=== PATIENT | female | born 1930 | race Caucasian/White ===

== ENCOUNTER 2018-02-16 14:53 | Inpatient (IN) | payer MEDICARE, OTHER ==
--- NOTE | 2018-02-16 15:12 | ERNOTE ---
Lower Extremity HPI - Narrative Date of Service: 02/16/18 - General Lower Extremities Pain: leg: left Time Seen by Provider: 02/16/18 15:11 Source: patient Exam Limitations: no limitations - Immun/Allergies/Home Medications Immunizations: IMMUNIZATION HX Immunizations Up to Date No History of Influenza Vaccine More Information Required Hx Pneumococcal Vaccination More Information Required Allergies/Adverse Reactions: Allergies Allergy/AdvReac Type Severity Reaction Status Date / Time iodine Allergy Intermediate Blisters Verified 02/16/18 17:29 ibuprofen AdvReac Intermediate Swelling Verified 02/16/18 17:29 (Other) bupropion HCl AdvReac Mild Other Verified 02/16/18 17:29 [From Wellbutrin] Home Medications: HOME MEDICATIONS Acetaminophen [Tylenol] 500 mg PO Q6H PRN #0 tab 12/17/13 [Last Taken Unknown] Metoprolol Tartrate [Lopressor] 75 mg PO BID #0 tab 12/17/13 [Last Taken 05/31/14 08:00] simvastatin 20 mg tablet 20 mg PO HS #30 tab 12/03/17 [Last Taken Unknown] citalopram 20 mg tablet 20 mg PO DAILY #90 tab 12/05/17 [Last Taken Unknown] cane See Dose Instructions .ROUTE .MEDSUPPLY #1 ea 12/15/17 [Last Taken Unknown] levothyroxine 100 mcg tablet 100 mcg PO DAILY #90 tab 01/08/18 [Last Taken Unknown] torsemide 20 mg tablet 20 mg PO DAILY #90 tab 01/08/18 [Last Taken Unknown] Cephalexin [Keflex] 500 mg PO QID #40 capsule 02/11/18 [Last Taken 02/16/18 13:00] Cholecalciferol (Vitamin D3) [Vitamin D3] 1,000 unit PO DAILY 02/16/18 [Last Taken Unknown] Warfarin Sodium [Coumadin] 1.5 mg PO TUSA 02/16/18 [Last Taken Unknown] Warfarin Sodium [Coumadin] 3 mg PO SUMOWETHFR 02/16/18 [Last Taken Unknown] - Pain Score Pain Score #1 Pain Score: 7 - History of Present Illness Narrative: The patient is a 87 year old female who presents for left leg edema and discoloration which has been present for 1 week with worsening symptoms. There are associated symptoms of difficulty with ambulation. The patient reports pain to left medial calf, 10/28. There are alleviating factors of non weight bearing and rest. There are aggravating factors of palpation and ambulation. Previous treatments have included: Rocephin and Keflex without improvement. The past medical history includes: Afib, DVT, anemia, anxiety, osteoarthritis, depression, DM, HLD, HTN and hypothyroid. The social history is negative. The patient has had no ill contacts. Patient was seen on 02/11/18 with US and lab testing conclusive of hematoma vs abscess, bakers cyst and negative for DVT. Patient is currently on Coumadin with most recent INR 3.28. Review of Systems - Review of Systems Constitutional: Present: fatigue. Absent: recent illness, fever EYE: Present: no symptoms reported ENT: Present: no symptoms reported. Absent: ear pain, nasal drainage, sore throat Respiratory: Present: no symptoms reported. Absent: shortness of breath, cough Cardiology: Present: no symptoms reported. Absent: chest pain Gastrointestinal/Abdominal: Present: nausea. Absent: vomiting, diarrhea, abdominal pain Genitourinary: Absent: dysuria, hematuria Musculoskeletal: Present: joint pain, joint swelling Skin: Present: lesions Neurological: Present: no symptoms reported Endocrine: Present: no symptoms reported Hematologic/Lymphatic: Present: no symptoms reported Psych: Present: no symptoms reported All Other Systems: All systems neg except as marked Medical History (Last Reviewed 02/16/18 @ 15:26 by HARMONY Bond) H/O mammogram (Chronic) Onset Date: ~02/04/08 Yearly Screening Sciatica (Chronic) Onset Date: ~2004 Left sided Osteoarthritis (Chronic) Onset Date: Unknown Obesity (Chronic) Onset Date: Unknown Myalgia (Chronic) Onset Date: Unknown Knee pain (Chronic) Onset Date: Unknown 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) Onset Date: ~2013 right knee Hypothyroidism (Chronic) Onset Date: ~07/2008 Hypertension (Chronic) Onset Date: ~1969 Hyperlipidemia (Chronic) Onset Date: ~09/2006 Encounter for Hemoccult screening (Chronic) Onset Date: ~09/07/07 Negative X 3 Diabetes 1.5, managed as type 2 (Chronic) Onset Date: ~01/2008 Depression (Chronic) Onset Date: Unknown H/O bone density study (Chronic) Onset Date: ~11/22/04 Atrial fibrillation (Chronic) Onset Date: ~09/20/13 Osteoarthritis (Chronic) Onset Date: ~03/10/13 Bilateral knees Arthralgia (Chronic) Onset Date: Unknown Anxiety (Chronic) Onset Date: Unknown Anemia (Chronic) Onset Date: ~01/2008 Surgical History: Surgical History (Last Reviewed 02/16/18 @ 15:26 by HARMONY Bond) History of total knee arthroplasty (Resolved) Onset Date: ~12/07/13 2014 - Dr. Mckeon - Right 2015 - Dr. De Jesus [facility] right revision after infection. H/O bilateral oophorectomy (Resolved) Onset Date: ~1955 History of cholecystectomy (Resolved) Onset Date: ~1986 Cataract (Resolved) Onset Date: Unknown Right 11/2001 and Left 02/2007 History of bladder surgery (Resolved) Onset Date: Unknown ? adhesions and bladder dropped Hx of hysterectomy Family History: Family History (Last Reviewed 02/16/18 @ 15:26 by HARMONY Bond) Father , age 70 Myocardial infarction Hypertension Mother , age 97 Broken hip CHF (congestive heart failure) Heart disease Social History: Preferred Language Greenlandic Do you have any yazdanism or No cultural preference? Smoking Status Never smoker Have you smoked in the past 12 No months Do you dip or chew tobacco No Alcohol Use sober (Last Updated 01/16/18 @ 06:51 by Vladimir Oliveira MD) No Social History Section defined Physical Exam - Physical Exam General Appearance: Present: wd/wn, alert, mild distress, obese Head Exam: Present: normal inspection Respiratory: Present: no respiratory distress, normal breath sounds, chest nontender, lungs clear Cardiovascular/Chest: Present: no murmur, irregularly irregular Peripheral Pulses: N=norm/S=strong/W=weak/B=bound/A=absent: Dorsalis-pedis (L): Normal Extremity Exam: Present: extremity edema - diffuse with increase to calf, other - notable hematoma with black discoloration to medial calf with diffuse erythema to lower extremity, no posterior knee tenderness or fullness Neurological Exam: Present: alert, oriented, normal mood/affect Skin Exam: Present: normal color, warm/dry ED Progress - Date and Time Seen: Date and Time: 02/16/18 16:40 Discussed care with Cuong KAPLAN, drain area with 20g needle and attempt to decompress for pain control as well as get culture. 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 Discussed with case folder Minoo, approved to observation admit. Notified Cuong KAPLAN of admission plan, will see patient tomorrow for aspiration, will with hold antibiotics until evaluation tomorrow. - Results and Orders Patient's Lab Results:: I have reviewed the patient's lab results. - Vital Signs Patient's Vital Signs:: I have reviewed the patient's vital signs. Vital Signs: Vital Signs 02/16/18 14:57 Temperature 37.1 C Pulse Rate 75 Respiratory Rate 13 Blood Pressure 156/78 H O2 Sat by Pulse Oximetry 96 - CT/Ultrasound CT/Ultrasound Narrative: X-RAY REPORT ~[id number] ULT/US Venous Ext Limit LT~ Exam Date: 02/16/2018 15:18 Ordering Physician: Rama Estevez Indication: Left lower extremity edema with hematoma. Technique: Real-time compression grayscale sonography, Doppler and duplex techniques were used to evaluate the left lower extremity deep venous system from the common femoral through popliteal trifurcation. Compared to prior examination dated February 11, 2018. Findings: There is normal compressibility, augmentation of flow and respiratory variation in the left lower extremity deep venous system. No intraluminal filling defects to suggest deep venous thrombosis. Within the left calf, subcutaneous tissues is a heterogeneous fluid collection measuring 9.3 x 6.6 x 6.2 cm. This has increased in size from the prior examination and could represent enlarging hematoma however, exclude infection/abscess formation. Correlate clinically. IMPRESSION: 1. NO EVIDENCE FOR DVT IN THE LEFT LOWER EXTREMITY. 2. PERSISTENT ENLARGING HETEROGENEOUS FLUID COLLECTION IN THE LEFT CALF IN THE SUBCUTANEOUS TISSUES MEASURING 9.3 X 6.6 X 6.2 CM. FINDINGS COULD REPRESENT HEMATOMA HOWEVER CANNOT EXCLUDE INFECTION. CORRELATE CLINICALLY FOR FEVER AND ELEVATED WHITE COUNT. Electronically signed by Franklyn Mendoza D.O.. - Progress/Reassessment Chief Complaint: Lower Extremity Pain/ Injury Departure Clinical Impression: skilled nursing (current) use of anticoagulants, Hematoma, Leg pain, left, Hypokalemia - Departure Disposition: Still a patient Condition: Fair
[2018-02-16] MEDS ORDERED: ONDANSETRON HCL/PF 2 MG/ML VIAL IV ONE (15:42)
[2018-02-16] MEDS ORDERED: MORPHINE SULFATE 2 MG/ML DISP.SYRIN IV ONE (15:42)
[2018-02-16] MEDS ORDERED: ONDANSETRON HCL/PF 2 MG/ML VIAL ONE (15:53)
[2018-02-16] MEDS ORDERED: MORPHINE SULFATE 2 MG/ML DISP.SYRIN ONE (15:53)
[2018-02-16 15:56] LABS: Hematocrit 34.6 % (37.0-47.0); Hemoglobin 11.5 gm/dL (12.5-16.0); Mean Cell Volume 90.1 fl (78-100); Mean Corpuscular Hemoglobin 29.9 pg (27-31); Mean Corpuscular Hgb Conc 33.2 g/dl (32-36); Mean Platelet Volume 9.3 fl (8-12.5); Neutrophil # 9.5 K/mm3 (1.3-6.0); Neutrophil % 79.1 % (42-75.0); Platelet Count 213 K/mm3 (150-450); Red Blood Count 3.84 M/mm3 (4.2-5.4); Red Cell Distribution Width 13.1 % (11.5-14.0)
[2018-02-16 16:08] LABS: Albumin * 3.5 gm/dl (3.4-5.0); Anion Gap 11.1 mmol/L (6.8-13.8); Bilirubin, Total 1.3 mg/dL (0.0-1.1); CRP 7.3 mg/dL (0.0-0.9); Ca. Corrected For Albumin 8.4 mg/dL (8.4-10.2); Calcium * 8.3 mg/dL (7.9-10.9); Carbon Dioxide 32.3 mmol/L (24-32.6); Total Protein 7.1 gm/dL (6.2-8.2)
[2018-02-16 16:12] LABS: Prothrombin Time (Patient) 32.3 Seconds (9.0-11.0)
[2018-02-16 16:15] LABS: INR 3.19 INR (0.90-1.10); Partial Thrombolplastin Time 46.7 Seconds (24-32)
[2018-02-16 16:27] LABS: Potassium 2.4 mmol/L (3.4-4.6)
[2018-02-16] MEDS ORDERED: POTASSIUM CHLORIDE 20 MEQ TABLET.SA PO ONE (16:29)
[2018-02-16] MEDS ORDERED: POTASSIUM CHLORIDE 20 MEQ TABLET.SA ONE (17:06)
--- NOTE | 2018-02-16 18:14 | HP ---
Chief Complaint - Chief Complaint Date of Service: 02/16/18 Time of Service: 18:07 Chief Complaint: Leg swelling and pain, left History of Present Illness: Maggie Patel, is an 87-year-old white female, with past medical history of chronic atrial fibrillation, diabetes mellitus type 2, hypertension, obesity, who was admitted on 02/16/2018 because of swelling over left leg associated with pain. 2 weeks prior to admission she started having some left leg pain. She did not recall any history of trauma. 5 days prior to admission she knocked his swelling and redness as well as darkening over skin of her left lower extremity. She went to our emergency room where an ultrasound done did not show any deep vein thromboses but did show fluid accumulation on on her left leg consider hematoma versus abscess. She also had a Knapp's cyst. She was started on cephalexin for cellulitis. Her's swelling, redness and blackening over her skin did not get better and got worse, so she went back to our emergency room. Her repeat ultrasound of the leg showed an enlarging fluid accumulation consider hematoma versus infection. She had moderate Knapp's cyst. Her INR was 3.01 down from 3.215 days ago. She was then admitted for observation on and for orthopedic consultation. She denied any fever or chills, chest pain or shortness of breath. 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) Onset Date: ~2013 right knee Hypothyroidism (Chronic) Onset Date: ~07/2008 Hypertension (Chronic) Onset Date: ~1969 Hyperlipidemia (Chronic) Onset Date: ~09/2006 Encounter for Hemoccult screening (Chronic) Onset Date: ~09/07/07 Negative X 3 Diabetes 1.5, managed as type 2 (Chronic) Onset Date: ~01/2008 Depression (Chronic) Onset Date: Unknown H/O bone density study (Chronic) Onset Date: ~11/22/04 Atrial fibrillation (Chronic) Onset Date: ~09/20/13 Osteoarthritis (Chronic) Onset Date: ~03/10/13 Bilateral knees Arthralgia (Chronic) Onset Date: Unknown Anxiety (Chronic) Onset Date: Unknown Anemia (Chronic) Onset Date: ~01/2008 Surgical History: Surgical History (Last Reviewed 02/16/18 @ 17:28 by Nathalie Washington RN) History of total knee arthroplasty (Resolved) Onset Date: ~12/07/13 2014 - Dr. Mckeon - Right 2015 - Dr. De Jesus [facility] right revision after infection. H/O bilateral oophorectomy (Resolved) Onset Date: ~1955 History of cholecystectomy (Resolved) Onset Date: ~1986 Cataract (Resolved) Onset Date: Unknown Right 11/2001 and Left 02/2007 History of bladder surgery (Resolved) Onset Date: Unknown ? 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 Smoking Status Former smoker Have you smoked in the past 12 No months Do you dip or chew tobacco No Alcohol Use sober (Last Updated 01/16/18 @ 06:51 by Vladimir Oliveira MD) No Social History Section defined Review Of Systems (GEN) - Review of Systems Generalized/Overall Review: Absent: Weakness, Chills, Fever EENTM: Absent: Blurred Vision Respiratory: Absent: Cough, Shortness of Breath, Orthopnea Cardiac: Present: Edema. Absent: Chest Pain, Palpitations Abdominal: Absent: Nausea, Vomiting Genitourinary: Absent: Urgency, Frequency Musculoskeletal: Present: Joint Pain Skin: Present: Change in Color, Bruising Immunizations: IMMUNIZATION HX Immunizations Up to Date No History of Influenza Vaccine More Information Required Hx Pneumococcal Vaccination More Information Required Allergies/Adverse Reactions: Allergies Allergy/AdvReac Type Severity Reaction Status Date / Time iodine Allergy Intermediate Blisters Verified 02/16/18 17:29 ibuprofen AdvReac Intermediate Swelling Verified 02/16/18 17:29 (Other) bupropion HCl AdvReac Mild Other Verified 02/16/18 17:29 [From Wellbutrin] Home Medications: HOME MEDICATIONS Acetaminophen [Tylenol] 500 mg PO Q6H PRN #0 tab 12/17/13 [Last Taken Unknown] Metoprolol Tartrate [Lopressor] 75 mg PO BID #0 tab 12/17/13 [Last Taken 05/31/14 08:00] simvastatin 20 mg tablet 20 mg PO HS #30 tab 12/03/17 [Last Taken Unknown] citalopram 20 mg tablet 20 mg PO DAILY #90 tab 12/05/17 [Last Taken Unknown] cane See Dose Instructions .ROUTE .MEDSUPPLY #1 ea 12/15/17 [Last Taken Unknown] levothyroxine 100 mcg tablet 100 mcg PO DAILY #90 tab 01/08/18 [Last Taken Unknown] torsemide 20 mg tablet 20 mg PO DAILY #90 tab 01/08/18 [Last Taken Unknown] Cholecalciferol (Vitamin D3) [Vitamin D3] 1,000 unit PO DAILY 02/16/18 [Last Taken Unknown] Warfarin Sodium [Coumadin] 1.5 mg PO TUSA 02/16/18 [Last Taken Unknown] Warfarin Sodium [Coumadin] 3 mg PO SUMOWETHFR 02/16/18 [Last Taken Unknown] Exam - Exam Vital Signs: Vital Signs - Last Taken Temp 36.7 C 02/16/18 17:31 Pulse 75 02/16/18 17:31 Resp 16 02/16/18 17:31 BP 150/56 H 02/16/18 17:31 Pulse Ox 100 02/16/18 17:31 Constitutional: Present: Alert, Oriented x3, Cooperative, Elderly, Obese ENT Exam: Present: hearing grossly normal Eye Exam: bilateral eye: normal inspection, PERRL, EOMI Neck: Present: supple Respiratory: Present: decreased breath sounds, No rales, No wheezing Cardiovascular/Chest: Present: no JVD, no murmur, irregularly irregular Abdomen: Present: Normal bowel sounds, soft, nontender, nondistended, obese Extremity: Present: lower extremity edema, other - LLE- positive erythema, positive hematoma/ecchymoses, no pain on dorsiflexion of foot, faint but positive DPA/COMPENSATION AND BENEFITS ADVISOR pulses, positive popliteal cyst Diagnostic Studies: Abnormal Lab Results 02/16/18 02/16/18 02/16/18 Range/Units 15:43 15:43 15:43 WBC 12.0 H (4.0-10.5) K/mm3 RBC 3.84 L (4.2-5.4) M/mm3 Hgb 11.5 L (12.5-16.0) gm/dL Hct 34.6 L (37.0-47.0) % Immature Gran % (Auto) 0.70 H (0.001-0.429) % Immature Gran # (Auto) 0.08 H (0.000-0.0310) K/mm3 Neutrophils % 79.1 H (42-75.0) % Lymphocytes % 8.9 L (20-51) % Monocytes % 10.6 H (0.0-9) % Neutrophils # 9.5 H (1.3-6.0) K/mm3 Lymphocytes # 1.07 L (1.5-3.5) k/mm3 Monocytes # 1.3 H (0.0-1.0) k/mm3 ESR 58 H (0-15) mm/hr PT 32.3 H (9.0-11.0) Seconds INR (Anticoag Therapy) 3.19 H (0.90-1.10) INR PTT ([place]) 46.7 H (24-32) Seconds Potassium (3.4-4.6) mmol/L Chloride (97-106) mmol/L Est GFR (Non-Af Amer) (60-130) mL/min Random Glucose (70-110) mg/dL Total Bilirubin (0.0-1.1) mg/dL ALT (19-67) U/L C-Reactive Prot, Quant (0.0-0.9) mg/dL 02/16/18 Range/Units 15:43 WBC (4.0-10.5) K/mm3 RBC (4.2-5.4) M/mm3 Hgb (12.5-16.0) gm/dL Hct (37.0-47.0) % Immature Gran % (Auto) (0.001-0.429) % Immature Gran # (Auto) (0.000-0.0310) K/mm3 Neutrophils % (42-75.0) % Lymphocytes % (20-51) % Monocytes % (0.0-9) % Neutrophils # (1.3-6.0) K/mm3 Lymphocytes # (1.5-3.5) k/mm3 Monocytes # (0.0-1.0) k/mm3 ESR (0-15) mm/hr PT (9.0-11.0) Seconds INR (Anticoag Therapy) (0.90-1.10) INR PTT (Devin) (24-32) Seconds Potassium 2.4 L* (3.4-4.6) mmol/L Chloride 95 L (97-106) mmol/L Est GFR (Non-Af Amer) 56 L (60-130) mL/min Random Glucose 143 H (70-110) mg/dL Total Bilirubin 1.3 H (0.0-1.1) mg/dL ALT 16 L (19-67) U/L C-Reactive Prot, Quant 7.3 H (0.0-0.9) mg/dL Laboratory Results WBC 12.0 K/mm3 (4.0-10.5) H 02/16/18 15:43 RBC 3.84 M/mm3 (4.2-5.4) L 02/16/18 15:43 Hgb 11.5 gm/dL (12.5-16.0) L 02/16/18 15:43 Hct 34.6 % (37.0-47.0) L 02/16/18 15:43 MCV 90.1 fl (78-100) 02/16/18 15:43 MCH 29.9 pg (27-31) 02/16/18 15:43 MCHC 33.2 g/dl (32-36) 02/16/18 15:43 RDW 13.1 % (11.5-14.0) 02/16/18 15:43 Plt Count 213 K/mm3 (150-450) 02/16/18 15:43 MPV 9.3 fl (8-12.5) 02/16/18 15:43 Immature Gran % (Auto) 0.70 % (0.001-0.429) H 02/16/18 15:43 Immature Gran # (Auto) 0.08 K/mm3 (0.000-0.0310) H 02/16/18 15:43 Neutrophils % 79.1 % (42-75.0) H 02/16/18 15:43 Lymphocytes % 8.9 % (20-51) L 02/16/18 15:43 Monocytes % 10.6 % (0.0-9) H 02/16/18 15:43 Eosinophils % 0.4 % (0.0-3.0) 02/16/18 15:43 Basophils % 0.3 % (0.0-1.0) 02/16/18 15:43 Nucleated RBC % 0.0 k/mm3 (0-1) 02/16/18 15:43 Neutrophils # 9.5 K/mm3 (1.3-6.0) H 02/16/18 15:43 Lymphocytes # 1.07 k/mm3 (1.5-3.5) L 02/16/18 15:43 Monocytes # 1.3 k/mm3 (0.0-1.0) H 02/16/18 15:43 Eosinophils # 0.1 k/mm3 (0.0-0.7) 02/16/18 15:43 Absolute Basophils 0.0 k/mm3 (0.0-0.1) 02/16/18 15:43 ESR 58 mm/hr (0-15) H 02/16/18 15:43 PT 32.3 Seconds (9.0-11.0) H 02/16/18 15:43 INR (Anticoag Therapy) 3.19 INR (0.90-1.10) H 02/16/18 15:43 PTT (Devin) 46.7 Seconds (24-32) H 02/16/18 15:43 Sodium 136 mmol/L (132-142) 02/16/18 15:43 Plasma Sodium 137 mmol/L (130-142) 02/16/18 15:43 Potassium 2.4 mmol/L (3.4-4.6) L* 02/16/18 15:43 Chloride 95 mmol/L (97-106) L 02/16/18 15:43 Carbon Dioxide 32.3 mmol/L (24-32.6) 02/16/18 15:43 Anion Gap 11.1 mmol/L (6.8-13.8) 02/16/18 15:43 BUN 16 mg/dL (3-23) 02/16/18 15:43 Creatinine 1.00 mg/dL (0.4-1.4) 02/16/18 15:43 Est GFR (Non-Af Amer) 56 mL/min (60-130) L 02/16/18 15:43 BUN/Creatinine Ratio 16.0 (9.0-21.6) 02/16/18 15:43 Random Glucose 143 mg/dL (70-110) H 02/16/18 15:43 Calcium 8.3 mg/dL (7.9-10.9) 02/16/18 15:43 Calcium Adj for Albumin 8.4 mg/dL (8.4-10.2) 02/16/18 15:43 Total Bilirubin 1.3 mg/dL (0.0-1.1) H 02/16/18 15:43 AST 16 U/L (0-48) 02/16/18 15:43 ALT 16 U/L (19-67) L 02/16/18 15:43 Alkaline Phosphatase 70 U/L (50-170) 02/16/18 15:43 C-Reactive Prot, Quant 7.3 mg/dL (0.0-0.9) H 02/16/18 15:43 Total Protein 7.1 gm/dL (6.2-8.2) 02/16/18 15:43 Albumin 3.5 gm/dl (3.4-5.0) 02/16/18 15:43 Assessment/Plan - Assessment/Plan (1) Hematoma Assessment: vs abscess. For possible drainage tomorrow. because of the enlarging fluid accu mulation, will give Vit K. Problem: Acute (2) Leg pain, left Assessment: hematoma vs. abscess. possible aspiration and/or I & D in the morning. will give IV ancef and Vit K. unlikely Warfarin skin necrosis due to period of time on anticoagulation. able to dorsiflex foot against resistance-unlikely with compartment syndrome. Problem: Acute (3) Hypokalemia Assessment: will replenish Problem: Acute (4) Osteoarthritis Problem: Chronic (5) Obesity Problem: Chronic Qualifiers: Obesity type: unspecified obesity type Obesity classification: adult class 2 (BMI 35 - 39.9) Serious obesity comorbidity presence: without serious comorbidity Body mass index: BMI 39.0-39.9 Qualified Code(s): E66.9 - Obesity, unspecified; Z68.39 - Body mass index (BMI) 39.0-39.9, adult (6) Hypothyroidism Problem: Chronic Qualifiers: Hypothyroidism type: acquired Qualified Code(s): E03.9 - Hypothyroidism, unspecified (7) Hypertension Problem: Chronic Qualifiers: Hypertension type: essential hypertension Qualified Code(s): I10 - Es sential (primary) hypertension (8) Hyperlipidemia Problem: Chronic Qualifiers: Hyperlipidemia type: mixed hyperlipidemia Qualified Code(s): E78.2 - Mixed hyperlipidemia (9) Atrial fibrillation Assessment: coumadin on hold. Problem: Chronic Qualifiers: Atrial fibrillation type: chronic Qualified Code(s): I48.2 - Chronic atrial fibrillation
[2018-02-16] MEDS ORDERED: ACETAMINOPHEN 500 MG TABLET PO PRN (18:30)
[2018-02-16] MEDS ORDERED: ceFAZolin SODIUM 1 GM VIAL IV ONE (18:51)
[2018-02-16] MEDS ORDERED: POTASSIUM CHLORIDE IN WATER 100 ML IV SCH (19:00)
[2018-02-16] MEDS ORDERED: PHYTONADIONE (VIT K1) 5 MG TABLET PO ONE (19:15)
[2018-02-16] MEDS ORDERED: ceFAZolin SODIUM 1 GM in DEXTROSE 5 % IN WATER 100 ML IV SCH ×2 (19:15)
[2018-02-16] MEDS ORDERED: METOPROLOL TARTRATE 25 MG TABLET ONE (19:41)
[2018-02-16] MEDS: METOPROLOL TARTRATE 25 MG TABLET PO SCH (20:35)
[2018-02-16] MEDS: SIMVASTATIN 20 MG TABLET PO SCH (20:36)
[2018-02-17] MEDS: traMADol HCL 50 MG TABLET PO PRN ×3 (04:49→20:19)
[2018-02-17 05:33] LABS: Prothrombin Time (Patient) 25.6 Seconds (9.0-11.0)
[2018-02-17 05:34] LABS: Anion Gap 9.7 mmol/L (6.8-13.8); BUN/Creatinine Ratio 16.2 (9.0-21.6); Calcium * 8.5 mg/dL (7.9-10.9); Carbon Dioxide 32.9 mmol/L (24-32.6); Estimated Creat Clear 26.6; Hematocrit 32.4 % (37.0-47.0); Hemoglobin 10.7 gm/dL (12.5-16.0); INR 2.54 INR (0.90-1.10); Mean Corpuscular Hemoglobin 29.7 pg (27-31); Mean Platelet Volume 9.4 fl (8-12.5); Platelet Count 215 K/mm3 (150-450); Potassium 2.6 mmol/L (3.4-4.6)
[2018-02-17 05:38] LABS: Total Cells Counted 100
[2018-02-17 06:05] LABS: Atypical (Reactive) Lymph 1 % (0-2); Band 1 % (0-2.0); Eosinophil 2 % (0-3); Lymphocyte 7 % (20-51); Monocyte 9 % (0-9); Neutrophil 80 % (42-75); Neutrophil # 10.4 K/mm3 (1.3-6.0)
[2018-02-17] MEDS: LEVOTHYROXINE SODIUM 100 MCG TABLET PO SCH (06:32)
[2018-02-17] MEDS ORDERED: POTASSIUM CHLORIDE IN WATER 100 ML IV SCH (08:00)
--- NOTE | 2018-02-17 08:21 | HP ---
Chief Complaint - Chief Complaint Date of Service: 02/17/18 Time of Service: 08:18 Chief Complaint: WBC is up to 13. Hematoma more than abscess. Coumadin on hold. Vit K given yesterday ,. INR down to 2.5. Ancef given in case abscess. Aspiration. Hypokalemia - tosemid on hold. K supplementation . History of Present Illness: Maggie Patel, is an 87-year-old white female, with past medical history of chronic atrial fibrillation, diabetes mellitus type 2, hypertension, obesity, who was admitted on 02/16/2018 because of swelling over left leg associated with pain. 2 weeks prior to admission she started having some left leg pain. She did not recall any history of trauma. 5 days prior to admission she knocked his swelling and redness as well as darkening over skin of her left lower extremity. She went to our emergency room where an ultrasound done did not show any deep vein thromboses but did show fluid accumulation on on her left leg consider hematoma versus abscess. She also had a Knapp's cyst. She was started on cephalexin for cellulitis. Her's swelling, redness and blackening over her skin did not get better and got worse, so she went back to our emergency room. Her repeat ultrasound of the leg showed an enlarging fluid accumulation consider hematoma versus infection. She had moderate Knapp's cyst. Her INR was 3.01 down from 3.215 days ago. She was then admitted for observation on and for orthopedic consultation. She denied any fever or chills, chest pain or shortness of breath. 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) Onset Date: ~2013 right knee Hypothyroidism (Chronic) Onset Date: ~07/2008 Hypertension (Chronic) Onset Date: ~1969 Hyperlipidemia (Chronic) Onset Date: ~09/2006 Encounter for Hemoccult screening (Chronic) Onset Date: ~09/07/07 Negative X 3 Diabetes 1.5, managed as type 2 (Chronic) Onset Date: ~01/2008 Depression (Chronic) Onset Date: Unknown H/O bone density study (Chronic) Onset Date: ~11/22/04 Atrial fibrillation (Chronic) Onset Date: ~09/20/13 Osteoarthritis (Chronic) Onset Date: ~03/10/13 Bilateral knees Arthralgia (Chronic) Onset Date: Unknown Anxiety (Chronic) Onset Date: Unknown Anemia (Chronic) Onset Date: ~01/2008 Surgical History: Surgical History (Last Reviewed 02/16/18 @ 17:28 by Nathalie Washington RN) History of total knee arthroplasty (Resolved) Onset Date: ~12/07/132013 - Dr. Mckeon - Right 2015 - Dr. De Jesus [facility] right revision after infection. H/O bilateral oophorectomy (Resolved) Onset Date: ~1955 History of cholecystectomy (Resolved) Onset Date: ~1986 Cataract (Resolved) Onset Date: Unknown Right 11/2001 and Left 02/2007 History of bladder surgery (Resolved) Onset Date: Unknown ? 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 Smoking Status Former smoker Have you smoked in the past 12 No months Do you dip or chew tobacco No Alcohol Use sober (Last Updated 01/16/18 @ 06:51 by Vladimir Oliveira MD) No Social History Section defined Immunizations: IMMUNIZATION HX Immunizations Up to Date No History of Influenza Vaccine More Information Required Hx Pneumococcal Vaccination More Information Required Allergies/Adverse Reactions: Allergies Allergy/AdvReac Type Severity Reaction Status Date / Time iodine Allergy Intermediate Blisters Verified 02/16/18 17:29 ibuprofen AdvReac Intermediate Swelling Verified 02/16/18 17:29 (Other) bupropion HCl AdvReac Mild Other Verified 02/16/18 17:29 [From Wellbutrin] Home Medications: HOME MEDICATIONS Acetaminophen [Tylenol] 500 mg PO Q6H PRN #0 tab 12/17/13 [Last Taken Unknown] Metoprolol Tartrate [Lopressor] 75 mg PO BID #0 tab 12/17/13 [Last Taken 05/31/14 08:00] simvastatin 20 mg tablet 20 mg PO HS #30 tab 12/03/17 [Last Taken Unknown] citalopram 20 mg tablet 20 mg PO DAILY #90 tab 12/05/17 [Last Taken Unknown] cane See Dose Instructions .ROUTE .MEDSUPPLY #1 ea 12/15/17 [Last Taken Unknown] levothyroxine 100 mcg tablet 100 mcg PO DAILY #90 tab 01/08/18 [Last Taken Unknown] torsemide 20 mg tablet 20 mg PO DAILY #90 tab 01/08/18 [Last Taken Unknown] Cholecalciferol (Vitamin D3) [Vitamin D3] 1,000 unit PO DAILY 02/16/18 [Last Taken Unknown] Warfarin Sodium [Coumadin] 1.5 mg PO TUSA 02/16/18 [Last Taken Unknown] Warfarin Sodium [Coumadin] 3 mg PO SUMOWETHFR 02/16/18 [Last Taken Unknown] Exam - Exam Vital Signs: Vital Signs - Last Taken Temp 36.7 C 02/17/18 02:24 Pulse 76 02/17/18 02:24 Resp 16 02/17/18 02:24 BP 110/47 02/17/18 02:24 Pulse Ox 95 02/17/18 02:24 Diagnostic Studies: Abnormal Lab Results 02/16/18 02/16/18 02/16/18 Range/Units 15:43 15:43 15:43 WBC 12.0 H (4.0-10.5) K/mm3 RBC 3.84 L (4.2-5.4) M/mm3 Hgb 11.5 L (12.5-16.0) gm/dL Hct 34.6 L (37.0-47.0) % Immature Gran % (Auto) 0.70 H (0.001-0.429) % Immature Gran # (Auto) 0.08 H (0.000-0.0310) K/mm3 Neutrophils % 79.1 H (42-75.0) % Neutrophils % (Manual) (42-75) % Lymphocytes % 8.9 L (20-51) % Lymphocytes % (Manual) (20-51) % Monocytes % 10.6 H (0.0-9) % Neutrophils # 9.5 H (1.3-6.0) K/mm3 Neutrophils # (Manual) (1.3-6.0) K/mm3 Lymphocytes # 1.07 L (1.5-3.5) k/mm3 Lymphocytes # (Manual) (1.5-3.5) k/mm3 Monocytes # 1.3 H (0.0-1.0) k/mm3 Monocytes # (Manual) (0.0-1.0) k/mm3 ESR 58 H (0-15) mm/hr PT 32.3 H (9.0-11.0) Seconds INR (Anticoag Therapy) 3.19 H (0.90-1.10) INR PTT (Dvein) 46.7 H (24-32) Seconds Potassium (3.4-4.6) mmol/L Chloride (97-106) mmol/L Carbon Dioxide (24-32.6) mmol/L Est GFR (Non-Af Amer) (60-130) mL/min Random Glucose (70-110) mg/dL Total Bilirubin (0.0-1.1) mg/dL ALT (19-67) U/L C-Reactive Prot, Quant (0.0-0.9) mg/dL 02/16/18 02/17/18 02/17/18 Range/Units 15:43 05:24 05:24 WBC 13.0 H (4.0-10.5) K/mm3 RBC 3.60 L (4.2-5.4) M/mm3 Hgb 10.7 L (12.5-16.0) gm/dL Hct 32.4 L (37.0-47.0) % Immature Gran % (Auto) (0.001-0.429) % Immature Gran # (Auto) (0.000-0.0310) K/mm3 Neutrophils % (42-75.0) % Neutrophils % (Manual) 80 H (42-75) % Lymphocytes % (20-51) % Lymphocytes % (Manual) 7 L (20-51) % Monocytes % (0.0-9) % Neutrophils # (1.3-6.0) K/mm3 Neutrophils # (Manual) 10.4 H (1.3-6.0) K/mm3 Lymphocytes # (1.5-3.5) k/mm3 Lymphocytes # (Manual) 0.9 L (1.5-3.5) k/mm3 Monocytes # (0.0-1.0) k/mm3 Monocytes # (Manual) 1.2 H (0.0-1.0) k/mm3 ESR (0-15) mm/hr PT 25.6 H (9.0-11.0) Seconds INR (Anticoag Therapy) 2.54 H (0.90-1.10) INR PTT (Devin) (24-32) Seconds Potassium 2.4 L* (3.4-4.6) mmol/L Chloride 95 L (97-106) mmol/L Carbon Dioxide (24-32.6) mmol/L Est GFR (Non-Af Amer) 56 L (60-130) mL/min Random Glucose 143 H (70-110) mg/dL Total Bilirubin 1.3 H (0.0-1.1) mg/dL ALT 16 L (19-67) U/L C-Reactive Prot, Quant 7.3 H (0.0-0.9) mg/dL 02/17/18 Range/Units 05:24 WBC (4.0-10.5) K/mm3 RBC (4.2-5.4) M/mm3 Hgb (12.5-16.0) gm/dL Hct (37.0-47.0) % Immature Gran % (Auto) (0.001-0.429) % Immature Gran # (Auto) (0.000-0.0310) K/mm3 Neutrophils % (42-75.0) % Neutrophils % (Manual) (42-75) % Lymphocytes % (20-51) % Lymphocytes % (Manual) (20-51) % Monocytes % (0.0-9) % Neutrophils # (1.3-6.0) K/mm3 Neutrophils # (Manual) (1.3-6.0) K/mm3 Lymphocytes # (1.5-3.5) k/mm3 Lymphocytes # (Manual) (1.5-3.5) k/mm3 Monocytes # (0.0-1.0) k/mm3 Monocytes # (Manual) (0.0-1.0) k/mm3 ESR (0-15) mm/hr PT (9.0-11.0) Seconds INR (Anticoag Therapy) (0.90-1.10) INR PTT (Devin) (24-32) Seconds Potassium 2.6 L (3.4-4.6) mmol/L Chloride 96 L (97-106) mmol/L Carbon Dioxide 32.9 H (24-32.6) mmol/L Est GFR (Non-Af Amer) 47 L (60-130) mL/min Random Glucose 112 H (70-110) mg/dL Total Bilirubin (0.0-1.1) mg/dL ALT (19-67) U/L C-Reactive Prot, Quant (0.0-0.9) mg/dL Laboratory Results WBC 13.0 K/mm3 (4.0-10.5) H 02/17/18 05:24 RBC 3.60 M/mm3 (4.2-5.4) L 02/17/18 05:24 Hgb 10.7 gm/dL (12.5-16.0) L 02/17/18 05:24 Hct 32.4 % (37.0-47.0) L 02/17/18 05:24 MCV 90.0 fl (78-100) 02/17/18 05:24 MCH 29.7 pg (27-31) 02/17/18 05:24 MCHC 33.0 g/dl (32-36) 02/17/18 05:24 RDW 13.0 % (11.5-14.0) 02/17/18 05:24 Plt Count 215 K/mm3 (150-450) 02/17/18 05:24 MPV 9.4 fl (8-12.5) 02/17/18 05:24 Immature Gran % (Auto) 0.70 % (0.001-0.429) H 02/16/18 15:43 Immature Gran # (Auto) 0.08 K/mm3 (0.000-0.0310) H 02/16/18 15:43 Neutrophils % 79.1 % (42-75.0) H 02/16/18 15:43 Neutrophils % (Manual) 80 % (42-75) H 02/17/18 05:24 Band Neuts % (Manual) 1 % (0-2.0) 02/17/18 05:24 Lymphocytes % 8.9 % (20-51) L 02/16/18 15:43 Lymphocytes % (Manual) 7 % (20-51) L 02/17/18 05:24 Monocytes % 10.6 % (0.0-9) H 02/16/18 15:43 Monocytes % (Manual) 9 % (0-9) 02/17/18 05:24 Eosinophils % 0.4 % (0.0-3.0) 02/16/18 15:43 Eosinophils % (Manual) 2 % (0-3) 02/17/18 05:24 Basophils % 0.3 % (0.0-1.0) 02/16/18 15:43 Nucleated RBC % 0.0 k/mm3 (0-1) 02/16/18 15:43 Neutrophils # 9.5 K/mm3 (1.3-6.0) H 02/16/18 15:43 Neutrophils # (Manual) 10.4 K/mm3 (1.3-6.0) H 02/17/18 05:24 Lymphocytes # 1.07 k/mm3 (1.5-3.5) L 02/16/18 15:43 Lymphocytes # (Manual) 0.9 k/mm3 (1.5-3.5) L 02/17/18 05:24 Monocytes # 1.3 k/mm3 (0.0-1.0) H 02/16/18 15:43 Monocytes # (Manual) 1.2 k/mm3 (0.0-1.0) H 02/17/18 05:24 Eosinophils # 0.1 k/mm3 (0.0-0.7) 02/16/18 15:43 Eosinophils # (Manual) 0.3 k/mm3 (0.0-0.7) 02/17/18 05:24 Absolute Basophils 0.0 k/mm3 (0.0-0.1) 02/16/18 15:43 Atypic/Reactive Lymphs 1 % (0-2) 02/17/18 05:24 ESR 58 mm/hr (0-15) H 02/16/18 15:43 PT 25.6 Seconds (9.0-11.0) H 02/17/18 05:24 INR (Anticoag Therapy) 2.54 INR (0.90-1.10) H 02/17/18 05:24 PTT ([place]) 46.7 Seconds (24-32) H 02/16/18 15:43 Sodium 136 mmol/L (132-142) 02/17/18 05:24 Plasma Sodium 136 mmol/L (130-142) 02/17/18 05:24 Potassium 2.6 mmol/L (3.4-4.6) L 02/17/18 05:24 Chloride 96 mmol/L (97-106) L 02/17/18 05:24 Carbon Dioxide 32.9 mmol/L (24-32.6) H 02/17/18 05:24 Anion Gap 9.7 mmol/L (6.8-13.8) 02/17/18 05:24 BUN 19 mg/dL (3-23) 02/17/18 05:24 Creatinine 1.17 mg/dL (0.4-1.4) 02/17/18 05:24 Est GFR (Non-Af Amer) 47 mL/min (60-130) L 02/17/18 05:24 BUN/Creatinine Ratio 16.2 (9.0-21.6) 02/17/18 05:24 Random Glucose 112 mg/dL (70-110) H 02/17/18 05:24 Calcium 8.5 mg/dL (7.9-10.9) 02/17/18 05:24 Calcium Adj for Albumin 8.4 mg/dL (8.4-10.2) 02/16/18 15:43 Total Bilirubin 1.3 mg/dL (0.0-1.1) H 02/16/18 15:43 AST 16 U/L (0-48) 02/16/18 15:43 ALT 16 U/L (19-67) L 02/16/18 15:43 Alkaline Phosphatase 70 U/L (50-170) 02/16/18 15:43 C-Reactive Prot, Quant 7.3 mg/dL (0.0-0.9) H 02/16/18 15:43 Total Protein 7.1 gm/dL (6.2-8.2) 02/16/18 15:43 Albumin 3.5 gm/dl (3.4-5.0) 02/16/18 15:43 Assessment/Plan - Assessment/Plan (1) Hematoma Problem: Acute (2) Leg pain, left Problem: Acute (3) Hypokalemia Problem: Acute (4) Osteoarthritis Problem: Chronic (5) Obesity Problem: Chronic Qualifiers: Obesity type: unspecified obesity type Obesity classification: adult class 2 (BMI 35 - 39.9) Serious obesity comorbidity presence: without serious comorbidity Body mass index: BMI 39.0-39.9 Qualified Code(s): E66.9 - Obesity, unspecified; Z68.39 - Body mass index (BMI) 39.0-39.9, adult (6) Hypothyroidism Problem: Chronic Qualifiers: Hypothyroidism type: acquired Qualified Code(s): E03.9 - Hypothyroidism, unspecified (7) Hypertension Problem: Chronic Qualifiers: Hypertension type: essential hypertension Qualified Code(s): I10 - Essential (primary) hypertension (8) Hyperlipidemia Problem: Chronic Qualifiers: Hyperlipidemia type: mixed hyperlipidemia Qualified Code(s): E78.2 - Mixed hyperlipidemia (9) Atrial fibrillation Problem: Chronic Qualifiers: Atrial fibrillation type: chronic Qualified Code(s): I48.2 - Chronic atrial fibrillation
[2018-02-17] MEDS: ceFAZolin SODIUM 1 GM in DEXTROSE 5 % IN WATER 50 ML IV SCH ×4 (08:44→15:32)
[2018-02-17] MEDS: METOPROLOL TARTRATE 25 MG TABLET PO SCH ×2 (08:45→20:15)
[2018-02-17] MEDS: CITALOPRAM HYDROBROMIDE 20 MG TABLET PO SCH (08:45)
[2018-02-17] MEDS: POTASSIUM CHLORIDE 20 MEQ TABLET.SA PO SCH ×2 (08:45→16:06)
[2018-02-17] MEDS: CHOLECALCIFEROL 1,000 UNIT CAPSULE PO SCH (08:46)
[2018-02-17] MEDS ORDERED: POTASSIUM CHLORIDE 10 MEQ TABLET.SA PO SCH (09:00)
--- NOTE | 2018-02-17 09:28 | CONS ---
- Reason for consultation (1) Hematoma Date of Service: 02/17/18 Reason for Consultation:: Swelling left leg with increasing pain. HPI - General Narrative: Maggie reports she has had increasing pain and swelling in her left leg for the p ast week. She was initially evaluated by her personal medical doctor who obtained an ultrasound of her left leg which showed fluid collection and he gave her Rocephin and started on antibiotics. He initially ordered a white count which was around 8000. Due to increasing pain she return to our emergency department had a repeat ultrasound which did show this fluid collection had enlarged. A new white count was obtained and it was over 12,000. She has not been running any fevers or had any flulike symptoms. She also did have a CRP obtained which was above 7. She was admitted to the hospital for hypokalemia as well to have this fluid collection evaluated. It was recommended that she stop the antibiotics so that we could obtain a culture. Patient does report that she may have bumped her leg on a chair about a week ago. She is on chronic anticoagulation and her INR has been running in the 3 range - History of Present Illness Allergies/Adverse Reactions: Allergies iodine Allergy (Intermediate, Verified 02/16/18 17:29) Blisters ibuprofen Adverse Reaction (Intermediate, Verified 02/16/18 17:29) Swelling (Other) bupropion HCl [From Wellbutrin] Adverse Reaction (Mild, Verified 02/16/18 17:29) Other Didn't feel good Home Medications: Home Medications Medication Instructions Recorded Last Taken Acetaminophen [Tylenol] 500 mg PO Q6H PRN #0 tab 12/17/13 Unknown Metoprolol Tartrate [Lopressor] 75 mg PO BID #0 tab 12/17/13 05/31/14 08:00 simvastatin 20 mg tablet 20 mg PO HS #30 tab 12/03/17 Unknown citalopram 20 mg tablet 20 mg PO DAILY #90 tab 12/05/17 Unknown cane See Dose Instructions .ROUTE 12/15/17 Unknown .MEDSUPPLY #1 ea levothyroxine 100 mcg tablet 100 mcg PO DAILY #90 tab 01/08/18 Unknown torsemide 20 mg tablet 20 mg PO DAILY #90 tab 01/08/18 Unknown Cholecalciferol (Vitamin D3) 1,000 unit PO DAILY 02/16/18 Unknown [Vitamin D3] Warfarin Sodium [Coumadin] 1.5 mg PO TUSA 02/16/18 Unknown Warfarin Sodium [Coumadin] 3 mg PO SUMOWETHFR 02/16/18 Unknown Procedures ANESTH INJECT-SPIN CANAL (01/19/09) Arthrocentesis (02/02/14) INJECT STEROID (01/19/09) Injection of therapeutic substance into joint or ligament (01/09/09) Injection or infusion of other therapeutic or prophylactic substance (01/09/09) SPINAL CANAL INJECT NEC (01/19/09) Total knee replacement (12/07/13) Medications - Medications Current Medications: Current Medications Acetaminophen (Tylenol) 500 mg PO Q6H PRN PRN Reason: Mild pain (pain scale 1-3) Stop: 03/18/18 18:31 Last Admin: 02/16/18 21:07 Dose: 500 mg Cholecalciferol (Vitamin D) 1,000 unit PO DAILY ULISES Stop: 03/19/18 09:01 Last Admin: 02/17/18 08:46 Dose: 1,000 unit Citalopram Hydrobromide (Celexa) 20 mg PO DAILY ULISES Stop: 03/19/18 09:01 Last Admin: 02/17/18 08:45 Dose: 20 mg Cefazolin Sodium 1 gm/ (Dextrose/Water) 100 mls @ 200 mls/hr IV ONCE ULISES Stop: 03/18/18 19:16 Last Infusion: 02/16/18 21:00 Dose: Infused Cefazolin Sodium 1 gm/ (Dextrose/Water) 50 mls @ 100 mls/hr IV Q8H ULISES; Protocol Stop: 03/19/18 08:16 Last Admin: 02/17/18 08:44 Dose: 100 mls/hr Levothyroxine Sodium (Synthroid) 100 mcg PO DAILY@0700 ULISES Stop: 03/19/18 07:01 Last Admin: 02/17/18 06:32 Dose: 100 mcg Metoprolol Tartrate (Lopressor) 75 mg PO BID ULISES Stop: 03/18/18 21:01 Last Admin: 02/17/18 08:45 Dose: 75 mg Potassium Chloride (K-Dur) 40 meq PO BIDWM ULISES Stop: 03/19/18 09:01 Last Admin: 02/17/18 08:45 Dose: 40 meq Simvastatin (Zocor) 20 mg PO HS ULISES Stop: 03/18/18 21:01 Last Admin: 02/16/18 20:36 Dose: 20 mg Tramadol HCl (Ultram) 50 mg PO Q6H PRN PRN Reason: Pain Stop: 03/19/18 04:44 Last Admin: 02/17/18 04:49 Dose: 50 mg Physical Examination - Exam Narrative: Left lower extremity shows a local fluctuant swelling area anterior medial villanueva. There is ecchymosis in this area. There is no open areas or drainage. There is no reactive erythema to suggest infection. The area of swelling is tender to palpation. Left knee range of motion does not elect any pain and no evidence of effusion. Left ankle range of motion is not painful. I did clean the area of the fluctuant swelling with chlorhexidine and a 20-gauge needle was used to aspirate fluid. I got approximately 2 mL's of syd dark red blood consistent with hematoma. This fluid will be sent for Gram stain and culture. Vital Signs: Vital Signs - Last Taken Temp 36.8 C 02/17/18 09:00 Pulse 89 02/17/18 09:00 Resp 20 02/17/18 09:00 BP 106/69 02/17/18 09:00 Pulse Ox 96 02/17/18 09:00 O2 Oxygen Delivery Method Room Air - Results and Findings: Lab/Microbiology results last 24 hrs: Abnormal/Pending Laboratory Last 24 HRS 02/17/18 02/17/18 02/17/18 05:24 05:24 05:24 WBC 13.0 H RBC 3.60 L Hgb 10.7 L Hct 32.4 L Immature Gran % (Auto) Immature Gran # (Auto) Neutrophils % Neutrophils % (Manual) 80 H Lymphocytes % Lymphocytes % (Manual) 7 L Monocytes % Neutrophils # Neutrophils # (Manual) 10.4 H Lymphocytes # Lymphocytes # (Manual) 0.9 L Monocytes # Monocytes # (Manual) 1.2 H ESR PT 25.6 H INR (Anticoag Therapy) 2.54 H PTT (Devin) Potassium 2.6 L Chloride 96 L Carbon Dioxide 32.9 H Est GFR (Non-Af Amer) 47 L Random Glucose 112 H Total Bilirubin ALT C-Reactive Prot, Quant 02/16/18 02/16/18 02/16/18 15:43 15:43 15:43 WBC RBC Hgb Hct Immature Gran % (Auto) Immature Gran # (Auto) Neutrophils % Neutrophils % (Manual) Lymphocytes % Lymphocytes % (Manual) Monocytes % Neutrophils # Neutrophils # (Manual) Lymphocytes # Lymphocytes # (Manual) Monocytes # Monocytes # (Manual) ESR 58 H PT 32.3 H INR (Anticoag Therapy) 3.19 H PTT (Ritchie) 46.7 H Potassium 2.4 L* Chloride 95 L Carbon Dioxide Est GFR (Non-Af Amer) 56 L Random Glucose 143 H Total Bilirubin 1.3 H ALT 16 L C-Reactive Prot, Quant 7.3 H 02/16/18 15:43 WBC 12.0 H RBC 3.84 L Hgb 11.5 L Hct 34.6 L Immature Gran % (Auto) 0.70 H Immature Gran # (Auto) 0.08 H Neutrophils % 79.1 H Neutrophils % (Manual) Lymphocytes % 8.9 L Lymphocytes % (Manual) Monocytes % 10.6 H Neutrophils # 9.5 H Neutrophils # (Manual) Lymphocytes # 1.07 L Lymphocytes # (Manual) Monocytes # 1.3 H Monocytes # (Manual) ESR PT INR (Anticoag Therapy) PTT (Ritchie) Potassium Chloride Carbon Dioxide Est GFR (Non-Af Amer) Random Glucose Total Bilirubin ALT C-Reactive Prot, Quant - Assessments/Findings (1) Hematoma Diagnosis(s): At this point time it does not appear to be abscess in the left leg. Recommend cold packs 4 times a day to the lower leg. Weightbearing as tolerated. Medical management of her chronic anticoagulation. 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
[2018-02-17] MEDS ORDERED: PHYTONADIONE (VIT K1) 5 MG TABLET PO ONE (10:18)
--- NOTE | 2018-02-17 11:10 | PN ---
Subjective - Date and Time Seen Date: 02/17/18 Time: 11:04 Subjective Narrative: Patient afebrile. WBC up today. INR down to 2.5. ADDENDUM: Lab called and said she is growing Gram Positive Cocci in cluster in her BC. Objective - Review of Systems Generalized/Overall Review: Denies: Weakness, Chills, Fever Respiratory: Denies: Cough, Shortness of Breath, Orthopnea Cardiac: Reports: Edema. Denies: Chest Pain, Palpitations Abdominal: Denies: Nausea, Vomiting Genitourinary Symptoms: Denies: Urgency, Frequency Musculoskeletal Complaints: Reports: Joint Pain, Other - leg swelling - Vitals Vitals: Last Vital Signs Temp 36.8 C 02/17/18 09:00 Pulse 89 02/17/18 09:00 Resp 20 02/17/18 09:00 BP 106/69 02/17/18 09:00 Pulse Ox 96 02/17/18 09:00 - Abnormal Lab Findings Abnormal Lab Findings: Abnormal Lab Results 02/16/18 02/16/18 02/16/18 Range/Units 15:43 15:43 15:43 WBC 12.0 H (4.0-10.5) K/mm3 RBC 3.84 L (4.2-5.4) M/mm3 Hgb 11.5 L (12.5-16.0) gm/dL Hct 34.6 L (37.0-47.0) % Immature Gran % (Auto) 0.70 H (0.001-0.429) % Immature Gran # (Auto) 0.08 H (0.000-0.0310) K/mm3 Neutrophils % 79.1 H (42-75.0) % Neutrophils % (Manual) (42-75) % Lymphocytes % 8.9 L (20-51) % Lymphocytes % (Manual) (20-51) % Monocytes % 10.6 H (0.0-9) % Neutrophils # 9.5 H (1.3-6.0) K/mm3 Neutrophils # (Manual) (1.3-6.0) K/mm3 Lymphocytes # 1.07 L (1.5-3.5) k/mm3 Lymphocytes # (Manual) (1.5-3.5) k/mm3 Monocytes # 1.3 H (0.0-1.0) k/mm3 Monocytes # (Manual) (0.0-1.0) k/mm3 ESR 58 H (0-15) mm/hr PT 32.3 H (9.0-11.0) Seconds INR (Anticoag Therapy) 3.19 H (0.90-1.10) INR PTT ([place]) 46.7 H (24-32) Seconds Potassium (3.4-4.6) mmol/L Chloride (97-106) mmol/L Carbon Dioxide (24-32.6) mmol/L Est GFR (Non-Af Amer) (60-130) mL/min Random Glucose (70-110) mg/dL Total Bilirubin (0.0-1.1) mg/dL ALT (19-67) U/L C-Reactive Prot, Quant (0.0-0.9) mg/dL 02/16/18 02/17/18 02/17/18 Range/Units 15:43 05:24 05:24 WBC 13.0 H (4.0-10.5) K/mm3 RBC 3.60 L (4.2-5.4) M/mm3 Hgb 10.7 L (12.5-16.0) gm/dL Hct 32.4 L (37.0-47.0) % Immature Gran % (Auto) (0.001-0.429) % Immature Gran # (Auto) (0.000-0.0310) K/mm3 Neutrophils % (42-75.0) % Neutrophils % (Manual) 80 H (42-75) % Lymphocytes % (20-51) % Lymphocytes % (Manual) 7 L (20-51) % Monocytes % (0.0-9) % Neutrophils # (1.3-6.0) K/mm3 Neutrophils # (Manual) 10.4 H (1.3-6.0) K/mm3 Lymphocytes # (1.5-3.5) k/mm3 Lymphocytes # (Manual) 0.9 L (1.5-3.5) k/mm3 Monocytes # (0.0-1.0) k/mm3 Monocytes # (Manual) 1.2 H (0.0-1.0) k/mm3 ESR (0-15) mm/hr PT 25.6 H (9.0-11.0) Seconds INR (Anticoag Therapy) 2.54 H (0.90-1.10) INR PTT ([place]) (24-32) Seconds Potassium 2.4 L* (3.4-4.6) mmol/L Chloride 95 L (97-106) mmol/L Carbon Dioxide (24-32.6) mmol/L Est GFR (Non-Af Amer) 56 L (60-130) mL/min Random Glucose 143 H (70-110) mg/dL Total Bilirubin 1.3 H (0.0-1.1) mg/dL ALT 16 L (19-67) U/L C-Reactive Prot, Quant 7.3 H (0.0-0.9) mg/dL 02/17/18 Range/Units 05:24 WBC (4.0-10.5) K/mm3 RBC (4.2-5.4) M/mm3 Hgb (12.5-16.0) gm/dL Hct (37.0-47.0) % Immature Gran % (Auto) (0.001-0.429) % Immature Gran # (Auto) (0.000-0.0310) K/mm3 Neutrophils % (42-75.0) % Neutrophils % (Manual) (42-75) % Lymphocytes % (20-51) % Lymphocytes % (Manual) (20-51) % Monocytes % (0.0-9) % Neutrophils # (1.3-6.0) K/mm3 Neutrophils # (Manual) (1.3-6.0) K/mm3 Lymphocytes # (1.5-3.5) k/mm3 Lymphocytes # (Manual) (1.5-3.5) k/mm3 Monocytes # (0.0-1.0) k/mm3 Monocytes # (Manual) (0.0-1.0) k/mm3 ESR (0-15) mm/hr PT (9.0-11.0) Seconds INR (Anticoag Therapy) (0.90-1.10) INR PTT ([place]) (24-32) Seconds Potassium 2.6 L (3.4-4.6) mmol/L Chloride 96 L (97-106) mmol/L Carbon Dioxide 32.9 H (24-32.6) mmol/L Est GFR (Non-Af Amer) 47 L (60-130) mL/min Random Glucose 112 H (70-110) mg/dL Total Bilirubin (0.0-1.1) mg/dL ALT (19-67) U/L C-Reactive Prot, Quant (0.0-0.9) mg/dL - Exam Constitutional: Present: Alert, Oriented x3, Cooperative, Elderly, Obese Neck: Present: supple Respiratory: Present: decreased breath sounds, No rales, No wheezing Cardiovascular/Chest: Present: no JVD, no murmur, irregularly irregular Abdomen: Present: Normal bowel sounds, soft, nontender, nondistended Extremity: Present: lower extremity edema, leg pain, swelling, other - erythema Assessment/Plan - Problems/Diagnosis (1) Bacteremia Problem: Acute Narrative: Gram Positive Cocci in cluster- like Staph- MSSA vs MRSA. will continue with her IV ancef and give IV vanco x 1 today. await final results. will transfer her to acute status. (2) Hematoma Problem: Acute (3) Leg pain, left Problem: Acute (4) Hypokalemia Problem: Acute (5) Osteoarthritis Problem: Chronic (6) Obesity Problem: Chronic Qualifiers: Obesity type: unspecified obesity type Obesity classification: adult class 2 (BMI 35 - 39.9) Serious obesity comorbidity presence: without serious comorbidity Body mass index: BMI 39.0-39.9 Qualified Code(s): E66.9 - Obesity, unspecified; Z68.39 - Body mass index (BMI) 39.0-39.9, adult (7) Hypothyroidism Problem: Chronic Qualifiers: Hypothyroidism type: acquired Qualified Code(s): E03.9 - Hypothyroidism, unspecified (8) Hypertension Problem: Chronic Qualifiers: Hypertension type: essential hypertension Qualified Code(s): I10 - Essential (primary) hypertension (9) Hyperlipidemia Problem: Chronic Qualifiers: Hyperlipidemia type: mixed hyperlipidemia Qualified Code(s): E78.2 - Mixed hyperlipidemia (10) Atrial fibrillation Problem: Chronic Qualifiers: Atrial fibrillation type: chronic Qualified Code(s): I48.2 - Chronic atrial fibrillation
[2018-02-17] MEDS ORDERED: VANCOMYCIN HCL 1.25 GM in DEXTROSE 5 % IN WATER 250 ML IV ONE ×2 (11:30)
[2018-02-17] MEDS: SIMVASTATIN 20 MG TABLET PO SCH (20:15)
[2018-02-18] MEDS: ceFAZolin SODIUM 1 GM in DEXTROSE 5 % IN WATER 50 ML IV SCH ×6 (00:12→15:35)
[2018-02-18 06:02] LABS: Hematocrit 27.8 % (37.0-47.0); Hemoglobin 9.3 gm/dL (12.5-16.0); Mean Cell Volume 90.6 fl (78-100); Mean Corpuscular Hemoglobin 30.3 pg (27-31); Mean Corpuscular Hgb Conc 33.5 g/dl (32-36); Mean Platelet Volume 9.3 fl (8-12.5); Platelet Count 194 K/mm3 (150-450); Red Blood Count 3.07 M/mm3 (4.2-5.4); Red Cell Distribution Width 13.1 % (11.5-14.0); White Blood Count 11.9 K/mm3 (4.0-10.5)
[2018-02-18 06:04] LABS: Calcium * 8.2 mg/dL (7.9-10.9); Carbon Dioxide 32.4 mmol/L (24-32.6); Potassium 3.4 mmol/L (3.4-4.6)
[2018-02-18 06:05] LABS: INR 1.25 INR (0.90-1.10); Prothrombin Time (Patient) 12.5 Seconds (9.0-11.0); Total Cells Counted 100
[2018-02-18] MEDS: LEVOTHYROXINE SODIUM 100 MCG TABLET PO SCH (06:41)
[2018-02-18 06:43] LABS: Eosinophil 3 % (0-3); Lymphocyte 12 % (20-51); Monocyte 10 % (0-9); Neutrophil 75 % (42-75); Neutrophil # 8.9 K/mm3 (1.3-6.0)
--- NOTE | 2018-02-18 07:51 | PN ---
Subjective - Date and Time Seen Date: 02/18/18 Time: 07:45 Subjective Narrative: Patient NAD. Afebrile. Tmax 37.3. Objective - Review of Systems Generalized/Overall Review: Denies: Chills, Fever Respiratory: Denies: Cough, Shortness of Breath Cardiac: Reports: Edema. Denies: Chest Pain, Palpitations Abdominal: Denies: Nausea, Vomiting Genitourinary Symptoms: Denies: Urgency, Frequency Musculoskeletal Complaints: Reports: Joint Pain - Vitals Vitals: Last Vital Signs Temp 37.4 C 02/18/18 07:17 Pulse 81 02/18/18 07:17 Resp 20 02/18/18 07:17 BP 146/67 02/18/18 07:17 Pulse Ox 96 02/18/18 07:17 - Abnormal Lab Findings Abnormal Lab Findings: Abnormal Lab Results 02/18/18 02/18/18 02/18/18 Range/Units 05:51 05:51 05:51 WBC 11.9 H (4.0-10.5) K/mm3 RBC 3.07 L (4.2-5.4) M/mm3 Hgb 9.3 L (12.5-16.0) gm/dL Hct 27.8 L (37.0-47.0) % Lymphocytes % (Manual) 12 L (20-51) % Monocytes % (Manual) 10 H (0-9) % Neutrophils # (Manual) 8.9 H (1.3-6.0) K/mm3 Lymphocytes # (Manual) 1.4 L (1.5-3.5) k/mm3 Monocytes # (Manual) 1.2 H (0.0-1.0) k/mm3 PT 12.5 H (9.0-11.0) Seconds INR (Anticoag Therapy) 1.25 H (0.90-1.10) INR Est GFR (Non-Af Amer) 52 L (60-130) mL/min Random Glucose 118 H (70-110) mg/dL - Exam Constitutional: Present: Alert, Oriented x3, Cooperative ENT Exam: Present: hearing grossly normal Neck: Present: supple Respiratory: Present: decreased breath sounds, No rales, No wheezing Cardiovascular/Chest: Present: no JVD, no murmur, irregularly irregular Abdomen: Present: Normal bowel sounds, soft, nontender, nondistended Extremity: Present: lower extremity edema, other - positive-hematoma/eccymoses LLE Assessment/Plan - Problems/Diagnosis (1) Bacteremia Problem: Acute Narrative: Gram posititve cocci in cluster on BC- continue with IV ancef and IV vanco until C &S report. her aspiration which was sent by Ortho for GS showed moderate WBC, rare gram positive cocci. likely source . but will get Echo. WBC is better. (2) Hematoma Problem: Acute (3) Leg pain, left Problem: Acute (4) Hypokalemia Problem: Resolved (5) Osteoarthritis Problem: Chronic (6) Obesity Problem: Chronic Qualifiers: Obesity type: unspecified obesity type Obesity classification: adult class 2 (BMI 35 - 39.9) Serious obesity comorbidity presence: without serious comorbidity Body mass index: BMI 39.0-39.9 Qualified Code(s): E66.9 - Obesity, unspecified; Z68.39 - Body mass index (BMI) 39.0-39.9, adult (7) Hypothyroidism Problem: Chronic Qualifiers: Hypothyroidism type: acquired Qualified Code(s): E03.9 - Hypothyroidism, unspecified (8) Hypertension Problem: Chronic Qualifiers: Hypertension type: essential hypertension Qualified Code(s): I10 - Essential (primary) hypertension (9) Hyperlipidemia Problem: Chronic Qualifiers: Hyperlipidemia type: mixed hyperlipidemia Qualified Code(s): E78.2 - Mixed hyperlipidemia (10) Atrial fibrillation Problem: Chronic Qualifiers: Atrial fibrillation type: chronic Qualified Code(s): I48.2 - Chronic atrial fibrillation Narrative: coumadin on hold due to enlarging fluid. INR down to 1.25 .
[2018-02-18] MEDS: CITALOPRAM HYDROBROMIDE 20 MG TABLET PO SCH (08:41)
[2018-02-18] MEDS: CHOLECALCIFEROL 1,000 UNIT CAPSULE PO SCH (08:42)
[2018-02-18] MEDS: POTASSIUM CHLORIDE 20 MEQ TABLET.SA PO SCH ×2 (08:42→17:04)
[2018-02-18] MEDS: METOPROLOL TARTRATE 25 MG TABLET PO SCH ×2 (08:42→20:32)
[2018-02-18] MEDS: traMADol HCL 50 MG TABLET PO PRN ×2 (09:26→18:45)
[2018-02-18] MEDS ORDERED: VANCOMYCIN HCL 1.25 GM in DEXTROSE 5 % IN WATER 250 ML IV SCH ×2 (11:30)
[2018-02-18] MEDS: SIMVASTATIN 20 MG TABLET PO SCH (20:32)
[2018-02-19] MEDS: ceFAZolin SODIUM 1 GM in DEXTROSE 5 % IN WATER 50 ML IV SCH ×4 (00:15→07:46)
[2018-02-19] MEDS: traMADol HCL 50 MG TABLET PO PRN ×3 (00:58→12:27)
[2018-02-19 05:33] LABS: Hematocrit 27.2 % (37.0-47.0); Hemoglobin 9.1 gm/dL (12.5-16.0); Mean Cell Volume 91.9 fl (78-100); Mean Corpuscular Hemoglobin 30.7 pg (27-31); Mean Corpuscular Hgb Conc 33.5 g/dl (32-36); Mean Platelet Volume 9.3 fl (8-12.5); Neutrophil # 6.7 K/mm3 (1.3-6.0); Neutrophil % 63.2 % (42-75.0); Platelet Count 214 K/mm3 (150-450); Red Blood Count 2.96 M/mm3 (4.2-5.4); Red Cell Distribution Width 13.1 % (11.5-14.0); White Blood Count 10.6 K/mm3 (4.0-10.5)
[2018-02-19 05:39] LABS: Prothrombin Time (Patient) 11.3 Seconds (9.0-11.0)
[2018-02-19 05:40] LABS: INR 1.13 INR (0.90-1.10)
[2018-02-19 05:41] LABS: Anion Gap 11.6 mmol/L (6.8-13.8); BUN/Creatinine Ratio 12.7 (9.0-21.6); Calcium * 8.5 mg/dL (7.9-10.9); Carbon Dioxide 29.9 mmol/L (24-32.6); Estimated Creat Clear 30.5; Potassium 4.5 mmol/L (3.4-4.6)
[2018-02-19] MEDS: LEVOTHYROXINE SODIUM 100 MCG TABLET PO SCH (06:34)
--- NOTE | 2018-02-19 08:11 | PN ---
Progess Note - Interim Date: 02/19/18 Time: 08:10 Narrative: 02/19/18 08:11 Patient NAD. afebrile . Tmax 37.4. WBC continues to go down. Lab called and looks like coagulase negative. Could be a contaminant but will await final results. INR is 1.13. Echo no gross vegetations. continue to hold coumadin. Patient was told about risk of CVA from AFib . 02/19/18 10:18 Lab called - Dionte Umana.
--- NOTE | 2018-02-19 09:05 | ECHO ---
This report is available in the EMR
[2018-02-19] MEDS: POTASSIUM CHLORIDE 20 MEQ TABLET.SA PO SCH (09:07)
[2018-02-19] MEDS: CITALOPRAM HYDROBROMIDE 20 MG TABLET PO SCH (09:07)
[2018-02-19] MEDS: CHOLECALCIFEROL 1,000 UNIT CAPSULE PO SCH (09:07)
[2018-02-19] MEDS: METOPROLOL TARTRATE 25 MG TABLET PO SCH (09:08)
--- NOTE | 2018-02-19 10:32 | DS ---
(1) Bacteremia Diagnosis(s): final result grew a CoNS- staph simulans in 1 bottle, NG in 2nd bottile and in aspirate - likely contaminant. will cover anyways [facility] . Problem: Suspected (2) Hematoma Diagnosis(s): Coumadin on hold. Problem: Acute (3) Leg pain, left Problem: Acute (4) Hypokalemia Problem: Resolved (5) Osteoarthritis Problem: Chronic (6) Obesity Problem: Chronic Qualifiers: Obesity type: unspecified obesity type Obesity classification: adult class 2 (BMI 35 - 39.9) Serious obesity comorbidity presence: without serious comorbidity Body mass index: BMI 39.0-39.9 Qualified Code(s): E66.9 - Obesity, unspecified; Z68.39 - Body mass index (BMI) 39.0-39.9, adult (7) Hypothyroidism Problem: Chronic Qualifiers: Hypothyroidism type: acquired Qualified Code(s): E03.9 - Hypothyroidism, unspecified (8) Hypertension Problem: Chronic Qualifiers: Hypertension type: essential hypertension Qualified Code(s): I10 - Essential (primary) hypertension (9) Hyperlipidemia Problem: Chronic Qualifiers: Hyperlipidemia type: mixed hyperlipidemia Qualified Code(s): E78.2 - Mixed hyperlipidemia (10) Atrial fibrillation Problem: Chronic Qualifiers: Atrial fibrillation type: chronic Qualified Code(s): I48.2 - Chronic atrial fibrillation Description of Stay: Maggie Patel, is an 87-year-old white female, with past medical history of chronic atrial fibrillation, diabetes mellitus type 2, hypertension, obesity, who was admitted on 02/16/2018 because of swelling over left leg associated with pain. 2 weeks prior to admission she started having some left leg pain. She did not recall any history of trauma although, orthopedic was able to ellicit that she could have bumped her leg. 5 days prior to admission she noticed swelling and redness as well as darkening over skin of her left lower extremity. She went to our emergency room where an ultrasound done did not show any deep vein thromboses but did show fluid accumulation on on her left leg consider hematoma versus abscess. She also had a Knapp's cyst. She was started on cephalexin for cellulitis. She was discharged form the ED. Her swelling, redness and blackening over her skin did not get better and got worse, so she went back to our emergency room. Her repeat ultrasound of the leg showed an enlarging fluid accumulation consider hematoma versus infection. She had moderate Knapp's cyst. Her INR was 3.01 down from 3.215, 5 days ago. She was then admitted for observation on and for orthopedic consultation. She denied any fever or chills, chest pain or shortness of breath. Her BC grew a gram positive cocci in clusters and she was started on IV Ancef, Vancomycin and changed to an acute status. . Her aspirate showed blood and showed moderate WBC, few gram positive cocci. Her INR went down after holding her coumadin and Vit K. Her final culture grew coagulase negative staph simulans in one bottle, NG in 2nd bottle (preliminary), NG in aspirate. She had received 3.5 days of IV antibiotics. Although this is likely a contaminant, will discharge her just in case on Levaquin per sensitivity as it has good biovailabilty orally. Andrew continue to hold her Coumadin . She knows that she has increased risk for CVA from her AFib. Will follow her up on Friday. Procedures Performed: see notes below List Procedures: aspirattion Results and Findings: Pending Mircobiology Results 02/18/18 08:25 Blood Blood Culture - Preliminary NO GROWTH 24 HOURS Lab Pending Results 02/16/18 15:43: WBC 12.0 H, RBC 3.84 L, Hgb 11.5 L, Hct 34.6 L, MCV 90.1, MCH 29.9, MCHC 33.2, RDW 13.1, Plt Count 213, MPV 9.3, Immature Gran % (Auto) 0.70 H, Immature Gran # (Auto) 0.08 H, Neutrophils % 79.1 H, Lymphocytes % 8.9 L, Monocytes % 10.6 H, Eosinophils % 0.4, Basophils % 0.3, Nucleated RBC % 0.0, Neutrophils # 9.5 H, Lymphocytes # 1.07 L, Monocytes # 1.3 H, Eosinophils # 0.1, Absolute Basophils 0.0 02/16/18 15:43: ESR 58 H 02/16/18 15:43: PT 32.3 H, INR (Anticoag Therapy) 3.19 H, PTT ([place]) 46.7 H 02/16/18 15:43: Sodium 136, Plasma Sodium 137, Potassium 2.4 L*, Chloride 95 L, Carbon Dioxide 32.3, Anion Gap 11.1, BUN 16, Creatinine 1.00, Est GFR (Non-Af Amer) 56 L, BUN/Creatinine Ratio 16.0, Random Glucose 143 H, Calcium 8.3, Calcium Adj for Albumin 8.4, Total Bilirubin 1.3 H, AST 16, ALT 16 L, Alkaline Phosphatase 70, C-Reactive Prot, Quant 7.3 H, Total Protein 7.1, Albumin 3.5 02/17/18 05:24: WBC 13.0 H, RBC 3.60 L, Hgb 10.7 L, Hct 32.4 L, MCV 90.0, MCH 29.7, MCHC 33.0, RDW 13.0, Plt Count 215, MPV 9.4, Neutrophils % (Manual) 80 H, Band Neuts % (Manual) 1, Lymphocytes % (Manual) 7 L, Monocytes % (Manual) 9, Eosinophils % (Manual) 2, Neutrophils # (Manual) 10.4 H, Lymphocytes # (Manual) 0.9 L, Monocytes # (Manual) 1.2 H, Eosinophils # (Manual) 0.3, Atypic/Reactive Lymphs 1 02/17/18 05:24: PT 25.6 H, INR (Anticoag Therapy) 2.54 H 02/17/18 05:24: Sodium 136, Plasma Sodium 136, Potassium 2.6 L, Chloride 96 L, Carbon Dioxide 32.9 H, Anion Gap 9.7, BUN 19, Creatinine 1.17, Est GFR (Non-Af Amer) 47 L, BUN/Creatinine Ratio 16.2, Random Glucose 112 H, Calcium 8.5 02/18/18 05:51: WBC 11.9 H, RBC 3.07 L, Hgb 9.3 L, Hct 27.8 L, MCV 90.6, MCH 30.3, MCHC 33.5, RDW 13.1, Plt Count 194, MPV 9.3, Neutrophils % (Manual) 75, Lymphocytes % (Manual) 12 L, Monocytes % (Manual) 10 H, Eosinophils % (Manual) 3, Neutrophils # (Manual) 8.9 H, Lymphocytes # (Manual) 1.4 L, Monocytes # (Manual) 1.2 H, Eosinophils # (Manual) 0.4 02/18/18 05:51: PT 12.5 H, INR (Anticoag Therapy) 1.25 H 02/18/18 05:51: Sodium 134, Plasma Sodium 134, Potassium 3.4 D, Chloride 97, Carbon Dioxide 32.4, Anion Gap 8.0, BUN 15, Creatinine 1.07, Est GFR (Non-Af Amer) 52 L, BUN/Creatinine Ratio 14.0, Random Glucose 118 H, Calcium 8.2 02/19/18 05:20: WBC 10.6 H, RBC 2.96 L, Hgb 9.1 L, Hct 27.2 L, MCV 91.9, MCH 30.7, MCHC 33.5, RDW 13.1, Plt Count 214, MPV 9.3, Immature Gran % (Auto) 1.00 H, Immature Gran # (Auto) 0.11 H, Neutrophils % 63.2, Lymphocytes % 17.2 L, Monocytes % 13.2 H, Eosinophils % 5.0 H, Basophils % 0.4, Nucleated RBC % 0.0, Neutrophils # 6.7 H, Lymphocytes # 1.83, Monocytes # 1.4 H, Eosinophils # 0.5, Absolute Basophils 0.0 02/19/18 05:20: PT 11.3 H, INR (Anticoag Therapy) 1.13 H 02/19/18 05:20: Sodium 138, Plasma Sodium 138, Potassium 4.5 D, Chloride 101, Carbon Dioxide 29.9, Anion Gap 11.6, BUN 13, Creatinine 1.02, Est GFR (Non-Af Amer) 54 L, BUN/Creatinine Ratio 12.7, Random Glucose 111 H, Calcium 8.5 Discharge Location: Home Disposition: Home self-care Condition: Fair Discharge Activity: Activity as tolerated Discharge Diet: Low salt, Low fat/chol Referrals: Vladimir Oliveira MD [Primary Care Provider] - Additional Patient Instructions (free text): -Please make TCM appointment unless penitentiary discharge. Thank you! Monie @ [phone]. Follow up with me this Friday. Prescriptions (Any new or edited meds): Citalopram Hydrobromide [Celexa] 10 mg PO DAILY #30 tablet Levofloxacin [Levaquin] 750 mg PO DAILY #10 tablet Potassium Chloride [K-Dur] 20 meq PO DAILY #30 tab traMADol HCL [Ultram] 50 mg PO Q6H PRN #30 tablet PRN Reason: Pain Complete Home Medications List: Complete Home Medication List: Acetaminophen [Tylenol] 500 mg PO Q6H PRN #0 tab 12/17/13 Metoprolol Tartrate [Lopressor] 75 mg PO BID #0 tab 12/17/13 simvastatin 20 mg tablet 20 mg PO HS #30 tab 12/03/17 cane See Dose Instructions .ROUTE .MEDSUPPLY #1 ea 12/15/17 levothyroxine 100 mcg tablet 100 mcg PO DAILY #90 tab 01/08/18 torsemide 20 mg tablet 20 mg PO DAILY #90 tab 01/08/18 Cholecalciferol (Vitamin D3) [Vitamin D3] 1,000 unit PO DAILY 02/16/18 Citalopram Hydrobromide [Celexa] 10 mg PO DAILY #30 tablet 02/19/18 Levofloxacin [Levaquin] 750 mg PO DAILY #10 tablet 02/19/18 Potassium Chloride [K-Dur] 20 meq PO DAILY #30 tab 02/19/18 traMADol HCL [Ultram] 50 mg PO Q6H PRN #30 tablet 02/19/18
[2018-02-19] MEDS ORDERED: TORSEMIDE 20 MG TABLET PO ONE (11:30)
[2018-02-19 13:53] VITALS: BP 107/54
== END 2018-02-19 14:05 | disposition home or self-care (01) | DRG 872 ==
LOC: ER 14:53 → MS 14:53
PROVIDERS: ADMIT Internal Medicine; ATTEND Internal Medicine
DX: Z88.6 Allergy status to analgesic agent; R78.81 Bacteremia; L03.116 Cellulitis of left lower limb; Z96.651 Presence of right artificial knee joint; Z79.01 Long term (current) use of anticoagulants; F41.9 Anxiety disorder, unspecified; E03.9 Hypothyroidism, unspecified; D32.9 Benign neoplasm of meninges, unspecified; M19.90 Unspecified osteoarthritis, unspecified site; Z88.8 Allergy status to other drugs, medicaments and biological substances; Z82.49 Family history of ischemic heart disease and other diseases of the circulatory system; M71.22 Synovial cyst of popliteal space [Baker], left knee; D64.9 Anemia, unspecified; I48.2 Chronic atrial fibrillation; Z23 Encounter for immunization; I10 Essential (primary) hypertension; E11.9 Type 2 diabetes mellitus without complications; E87.6 Hypokalemia; Z86.718 Personal history of other venous thrombosis and embolism; E66.9 Obesity, unspecified; Z68.39 Body mass index [BMI] 39.0-39.9, adult; E78.2 Mixed hyperlipidemia; S80.12XA Contusion of left lower leg, initial encounter; M54.32 Sciatica, left side
CPT/HCPCS: 36415; 80048; 80053; 85007; 85025; 85610; 85652; 85730; 86140; 87040; 87070; 87205; 90686; 93306; 93971; 96374; 96375; 97161; 99285; J2405

== ENCOUNTER 2018-08-04 11:12 | Inpatient (IN) ==
[2018-08-04] MEDS ORDERED: MORPHINE SULFATE 10 MG/ML SYRG IM ONE (11:43)
[2018-08-04] MEDS ORDERED: diphenhydrAMINE HCL 50 MG/ML VIAL IM ONE (11:43)
[2018-08-04] MEDS ORDERED: ORPHENADRINE CITRATE 30 MG/ML VIAL IM ONE (11:43)
--- NOTE | 2018-08-04 11:57 | ERNOTE ---
Lower Extremity HPI - Narrative Date of Service: 08/04/18 - General Lower Extremities Pain: hip: right, leg: right Time Seen by Provider: 08/04/18 11:25 Source: patient Exam Limitations: no limitations - Immun/Allergies/Home Medications Immunizations: IMMUNIZATION HX Immunizations Up to Date No History of Influenza Vaccine More Information Required Hx Pneumococcal Vaccination More Information Required Allergies/Adverse Reactions: Allergies Allergy/AdvReac Type Severity Reaction Status Date / Time iodine Allergy Intermediate Blisters Verified 02/23/18 13:16 ibuprofen AdvReac Intermediate Swelling Verified 02/23/18 13:16 (Other) bupropion HCl AdvReac Mild Other Verified 02/23/18 13:16 [From Wellbutrin] Home Medications: HOME MEDICATIONS Acetaminophen [Tylenol] 500 mg PO Q6H PRN #0 tab 12/17/13 [Last Taken Unknown] cane See Dose Instructions .ROUTE .MEDSUPPLY #1 ea 12/15/17 [Last Taken Unknown] levothyroxine 100 mcg tablet 100 mcg PO DAILY #90 tab 01/08/18 [Last Taken Unknown] torsemide 20 mg tablet 20 mg PO DAILY #90 tab 01/08/18 [Last Taken Unknown] Cholecalciferol (Vitamin D3) [Vitamin D3] 1,000 unit PO DAILY 02/16/18 [Last Taken Unknown] metoprolol tartrate 75 mg tablet 75 mg PO BID #180 tab 03/06/18 [Last Taken Unknown] polyethylene glycol 3350 17 gram/dose oral powder 17 g PO DAILY PRN #238 g 03/18/18 [Last Taken Unknown] citalopram 20 mg tablet 20 mg PO DAILY #30 tab 04/15/18 [Last Taken Unknown] warfarin 3 mg tablet 3 mg PO DAILY #30 tab 05/27/18 [Last Taken Unknown] potassium chloride ER 20 mEq tablet,extended release(part/cryst) 20 meq PO DAILY #30 tab 06/08/18 [Last Taken Unknown] simvastatin 20 mg tablet 20 mg PO HS #30 tab 07/06/18 [Last Taken Unknown] HYDROcodone/ACETAMINOPHEN [Hydrocodon-Acetaminophen 5-325] 1 ea PO QID PRN 08/04/18 [Last Taken Unknown] Prednisone 60 mg PO DAILY 08/04/18 [Last Taken Unknown] - History of Present Illness Narrative: This patient is an 88-year-old female who arrived by ambulance for left leg pain. She said that she has been having pain since yesterday. She has pain in the groin and hip. It sounds like it radiates from the low back to the knee. It is in the back and front of the leg. She denies distal numbness or tingling. She has a chronic wound of the left lower extremity. The pain is an ache at rest but terrible with movement. She says he gets up to a 13 out of 10 with movement. She denies any injury. She says that she went to the emergency room in [place] yesterday. She had x-rays and labs. She was diagnosed with a pulled muscle. She does not know what medicine they put her on but family member showed up later and it sounds like she is on 60 mg of prednisone and hydrocodone/acetaminophen 5/325. Sounds like she last took the medication at 12:01, 11 hours ago. She denies bowel or bladder dysfunction. The family was going to bring her here today. They called the ambulance for lift assistance to get her into the car. When the paramedics lifted her, she got weak, dizzy, cool, and diaphoretic. Her radial pulse was not palpable. Her blood pressure was 98/50 when they laid her back down. She was then transported here by ambulance. Review of Systems - Review of Systems Constitutional: Absent: fever EYE: Absent: blurred vision, double vision ENT: Absent: ear pain, nose congestion, nasal drainage, sore throat Respiratory: Absent: shortness of breath, cough Cardiology: Absent: chest pain, palpitations Gastrointestinal/Abdominal: Absent: nausea, vomiting, diarrhea, constipation, abdominal pain Genitourinary: Absent: frequency, pain, dysuria, hematuria Musculoskeletal: Present: back pain, muscle pain, joint pain Skin: Absent: rash Neurological: Absent: anxiety, depressed Endocrine: Present: no symptoms reported Hematologic/Lymphatic: Present: other - No active bleeding reported. 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) Onset Date: ~2013 right knee Hypothyroidism (Chronic) Onset Date: ~07/2008 Hypertension (Chronic) Onset Date: ~1969 Hyperlipidemia (Chronic) Onset Date: ~09/2006 Encounter for Hemoccult screening (Chronic) Onset Date: ~09/07/07 Negative X 3 Diabetes 1.5, managed as type 2 (Chronic) Onset Date: ~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 Mckeon - Right 2014 - Dr. De Jesus [facility] right revision after infection. H/O bilateral oophorectomy (Resolved) Onset Date: ~1955 History of cholecystectomy (Resolved) Onset Date: ~1986 Cataract (Resolved) Onset Date: Unknown Right 11/2001 and Left 02/2007 History of bladder surgery (Resolved) Onset Date: Unknown ? adhesions and bladder dropped Hx of hysterectomy Family History: Family History (Updated 12/15/17 @ 10:59 by Shiloh Fajardo RN) Father , age 70 Hypertension Myocardial infarction Mother , age 97 Heart disease CHF (congestive heart failure) Broken hip Social History: Preferred Language Jordanian Smoking Status Former smoker (Last Updated 02/23/18 @ 16:46 by Vladimir Oliveira MD) No Social History Section defined Physical Exam - Physical Exam General Appearance: Present: alert, no apparent distress - At rest. She has an obvious pain response with movement., obese Head Exam: Present: normal inspection, no evidence of injury Eye Exam: Normal inspection: bilateral Ears, Nose, Throat: Present: normal ENT inspection Neck: Present: normal inspection Respiratory: Present: no respiratory distress, normal breath sounds, lungs clear Cardiovascular/Chest: Present: no murmur, irregularly irregular. Absent: tachycardia, bradycardia Gastrointestinal/Abdominal: Present: normal bowel sounds, nontender, nondistended, soft, no organomegaly Back Exam: Present: normal inspection, other - She has tenderness over the lower lumbar vertebrae, sacrum, and SI notch. Extremity Exam: Present: other - She has a bandage on the left lower leg. She has diffuse tenderness, but mostly anteriorly and posteriorly. Absent: normal range of motion Neurological Exam: Present: alert, oriented, normal mood/affect, no motor/sensory deficits Skin Exam: Present: normal color - over the left thigh. She has tenderness, warm/dry - in the left inguinal area and left buttocks. Progress - Date and Time Seen: Date and Time: 08/04/18 15:55 The patient was sleeping after receiving pain medication. I reviewed the x-ray results with the patient and family. The family felt the patient needed to be hospitalized because they were not able to take care of her at home. The patient was agreeable. I spoke with the geriatric case manager who talked with the patient and family. We attempted to get the patient up and were not able to ambulate her. I spoke with Dr. Oliveira, who agreed to observe the patient. - Vital Signs Patient's Vital Signs:: I have reviewed the patient's vital signs. Vital Signs: Vital Signs 08/04/18 11:12 Temperature 37.0 C Pulse Rate 107 H Respiratory Rate 15 Blood Pressure 140/84 O2 Sat by Pulse Oximetry 95 - Progress/Reassessment Chief Complaint: Lower Extremity Pain/ Injury Departure Clinical Impression: Uncontrolled pain, Arthritis vs Sciatica - Departure Disposition: Still a patient Condition: Stable
[2018-08-04] MEDS ORDERED: ONDANSETRON 4 MG TAB.RAPDIS ONE (16:06)
[2018-08-04] MEDS ORDERED: ONDANSETRON 4 MG TAB.RAPDIS PO ONE (16:06)
--- NOTE | 2018-08-04 17:37 | HP ---
Chief Complaint - Chief Complaint Date of Service: 08/04/18 Time of Service: 17:17 Chief Complaint: severe left hip and left thigh pain History of Present Illness: Maggie Patel is an 88-year-old white female with past medical history of diabetes mellitus type 2, hypertension, hyperlipidemia, chronic atrial fibrillation, osteoarthritis, status post right total knee arthroplasty, who was admitted on 08/04/2018 because of left groin and hip pain. She says she also has low back pain that goes to the front and back over her thigh but does not extend distal to her left knee . She denies any history of recent trauma or fall. The pain started 2 days prior to admission. She went to the emergency room in [place] yesterday where they had x-rays done of her pelvis and femur. It did not show any acute osseous findings. 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 They gave her hydrocodone and prednisone and discharged her. She was told that she had a pulled muscle. On the morning of admission they called the ambulance for lift assistance to bring her to [facility]. Upon lifting her she got weak, dizzy, diaphoretic and felt cold. As per EMS her radial pulse could not be felt. Her blood pressure was 98/50 and so they laid her down. She was then transferred to our emergency room by ambulance. In the ED, lumbosacral x-ray done showed degenerative disc disease with facet osteoarthropathy. She rated her pain as 10 over 10 and was not able to ambulate in the emergency room even with assistance.. She was then admitted for observation and for pain control. She follows up with our Wound clinic for a chronic ulcer on her left leg and was just recently on Wound vac and cephalosporin antibiotic. Her INR in [place] yesterday was 2.1 as per her kimberly fuller. 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) Onset Date: ~2013 right knee Hypothyroidism (Chronic) Onset Date: ~07/2008 Hypertension (Chronic) Onset Date: ~1969 Hyperlipidemia (Chronic) Onset Date: ~09/2006 Encounter for Hemoccult screening (Chronic) Onset Date: ~09/07/07 Negative X 3 Diabetes 1.5, managed as type 2 (Chronic) Onset Date: ~01/2008 Depression (Chronic) Onset Date: Unknown H/O bone density study (Chronic) Onset Date: ~11/22/04 Atrial fibrillation (Chronic) Onset Date: ~09/20/13 Osteoarthritis (Chronic) Onset Date: ~03/10/13 Bilateral knees Arthralgia (Chronic) Onset Date: Unknown Anxiety (Chronic) Onset Date: Unknown Anemia (Chronic) Onset Date: ~01/2008 Surgical History: Surgical History (Updated 08/04/18 @ 18:08 by Vladimir Oliveira MD) History of total knee arthroplasty (Resolved) Onset Date: ~12/07/132013 - Dr. Mckeon - Right 2014 - Dr. De Jesus [facility] right revision after infection. H/O bilateral oophorectomy (Resolved) Onset Date: ~1955 History of cholecystectomy (Resolved) Onset Date: ~1986 Cataract (Resolved) Onset Date: Unknown Right 11/2001 and Left 02/2007 History of bladder surgery (Resolved) Onset Date: Unknown ? adhesions and bladder dropped Hx of hysterectomy Family History: Family History (Updated 12/15/17 @ 10:59 by Shiloh Fajardo RN) Father , age 70 Hypertension Myocardial infarction Mother , age 97 Heart disease CHF (congestive heart failure) Broken hip Social History: Patient Lives/Resources Home Utilized Occupation retired Preferred Language Central African Do you have any judaism or No cultural preference? Smoking Status Former smoker Have you smoked in the past 12 No months Do you dip or chew tobacco No (Last Updated 02/23/18 @ 16:46 by Vladimir Oliveira MD) No Social History Section defined Review Of Systems (GEN) - Review of Systems Generalized/Overall Review: Absent: Chills, Fever EENTM: Absent: Blurred Vision Respiratory: Absent: Cough, Shortness of Breath Cardiac: Absent: Chest Pain, Edema, Palpitations Abdominal: Absent: Nausea, Vomiting Genitourinary: Absent: Burning, Urgency, Frequency Musculoskeletal: Present: Joint Pain, Back Pain Neurological: Absent: Headache, Numbness, Tingling Skin: Present: Other Endocrine: Absent: Intolerance to Cold - ulcers, chronic, left leg, Intolerance to Heat Immunizations: IMMUNIZATION HX Immunizations Up to Date No History of Influenza Vaccine More Information Required Hx Pneumococcal Vaccination More Information Required Allergies/Adverse Reactions: Allergies Allergy/AdvReac Type Severity Reaction Status Date / Time iodine Allergy Intermediate Blisters Verified 02/23/18 13:16 ibuprofen AdvReac Intermediate Swelling Verified 02/23/18 13:16 (Other) bupropion HCl AdvReac Mild Other Verified 02/23/18 13:16 [From Wellbutrin] Home Medications: HOME MEDICATIONS Acetaminophen [Tylenol] 500 mg PO Q6H PRN #0 tab 12/17/13 [Last Taken Unknown] cane See Dose Instructions .ROUTE .MEDSUPPLY #1 ea 12/15/17 [Last Taken Unknown] levothyroxine 100 mcg tablet 100 mcg PO DAILY #90 tab 01/08/18 [Last Taken Unknown] torsemide 20 mg tablet 20 mg PO DAILY #90 tab 01/08/18 [Last Taken Unknown] Cholecalciferol (Vitamin D3) [Vitamin D3] 1,000 unit PO DAILY 02/16/18 [Last Taken Unknown] metoprolol tartrate 75 mg tablet 75 mg PO BID #180 tab 03/06/18 [Last Taken Unknown] polyethylene glycol 3350 17 gram/dose oral powder 17 g PO DAILY PRN #238 g 03/18/18 [Last Taken Unknown] citalopram 20 mg tablet 20 mg PO DAILY #30 tab 04/15/18 [Last Taken Unknown] warfarin 3 mg tablet 3 mg PO DAILY #30 tab 05/27/18 [Last Taken Unknown] potassium chloride ER 20 mEq tablet,extended release(part/cryst) 20 meq PO DAILY #30 tab 06/08/18 [Last Taken Unknown] simvastatin 20 mg tablet 20 mg PO HS #30 tab 07/06/18 [Last Taken Unknown] HYDROcodone/ACETAMINOPHEN [Hydrocodon-Acetaminophen 5-325] 1 ea PO QID PRN 08/04/18 [Last Taken Unknown] Prednisone 60 mg PO DAILY 08/04/18 [Last Taken Unknown] Exam - Exam Vital Signs: Vital Signs - Last Taken Temp 36.5 C 08/04/18 16:50 Pulse 109 H 08/04/18 16:50 Resp 16 08/04/18 16:50 BP 128/69 08/04/18 16:50 Pulse Ox 92 L 08/04/18 16:50 Constitutional: Present: Alert, Oriented x3, Cooperative, Elderly, Obese ENT Exam: Present: hearing grossly normal Eye Exam: bilateral eye: normal inspection, PERRL, EOMI Neck: Present: supple Respiratory: Present: normal breath sounds, No rales, No wheezing Cardiovascular/Chest: Present: no JVD, no murmur, irregularly irregular Abdomen: Present: Normal bowel sounds, soft, nontender, nondistended Extremity: Present: no calf tenderness, pedal edema, other - positive tendernes over her thigh and groin, left; positive trubigrip with dressing dry- left leg Neurologic: Present: social director II-XII nml as tested, no motor/sensory deficits, oriented x 3 Assessment/Plan - Assessment/Plan (1) Left groin pain Assessment: severe. unlikely DVT as her INR was 2.1 yesterday in [place]. will continue with pain control. will get PT to evaluate and treat her. if still cannot ambulate due to left hip pain, consider doing CTS of her left hip. will do CBC, CMP, ESR, CRP. Problem: Acute (2) Low back pain Assessment: continue with pain control. PT is consulted. Problem: Acute Qualifiers: Chronicity: acute Back pain laterality: left Sciatica laterality: sciatica of left side (3) Osteoarthritis Problem: Chronic Qualifiers: Osteoarthritis location: unspecified site Osteoarthritis type: primary Qualified Code(s): M19.91 - Primary osteoarthritis, unspecified site (4) History of total knee arthroplasty Problem: Resolved Qualifiers: Laterality: right Qualified Code(s): Z96.651 - Presence of right artificial knee joint (5) Obesity Problem: Chronic Qualifiers: (6) Hypothyroidism Problem: Chronic Qualifiers: (7) Hypertension Problem: Chronic Qualifiers: (8) Hyperlipidemia Problem: Chronic Qualifiers: (9) Atrial fibrillation Problem: Chronic Qualifiers: (10) Leg ulcer, left Problem: Chronic Qualifiers: Non-pressure ulcer stage: limited to breakdown of skin Qualified Code(s): L97.921 - Non-pressure chronic ulcer of unspecified part of left lower leg limited to breakdown of skin
[2018-08-04] MEDS ORDERED: HYDROmorphone HCL 1 MG/ML DISP.SYRIN IV PRN (17:43)
[2018-08-04] MEDS ORDERED: ACETAMINOPHEN 500 MG TABLET PO PRN (17:57)
[2018-08-04] MEDS ORDERED: POLYETHYLENE GLYCOL 3350 119 GM BTL PO PRN (17:57)
[2018-08-04 18:44] LABS: Hematocrit 27.9 % (37.0-47.0); Mean Cell Volume 90.9 fl (78-100); Mean Corpuscular Hemoglobin 29.3 pg (27-31); Mean Corpuscular Hgb Conc 32.3 g/dl (32-36); Mean Platelet Volume 10.3 fl (8-12.5); Platelet Count 217 K/mm3 (150-450); Red Blood Count 3.07 M/mm3 (4.2-5.4); Red Cell Distribution Width 13.9 % (11.5-14.0); White Blood Count 24.6 K/mm3 (4.0-10.5)
[2018-08-04 18:45] LABS: Total Cells Counted 100
[2018-08-04 18:57] LABS: Albumin * 3.2 gm/dl (3.4-5.0); Anion Gap 14.9 mmol/L (6.8-13.8); BUN/Creatinine Ratio 28.3 (9.0-21.6); Bilirubin, Total 0.7 mg/dL (0.0-1.1); CRP 4.7 mg/dL (0.0-0.9); Ca. Corrected For Albumin 8.9 mg/dL (8.4-10.2); Calcium * 8.6 mg/dL (7.9-10.9); Potassium 4.9 mmol/L (3.4-4.6); Total Protein 6.4 gm/dL (6.2-8.2)
[2018-08-04 19:01] LABS: Lymphocyte 14 % (20-51); Monocyte 6 % (0-9); Neutrophil 80 % (42-75); Neutrophil # 19.7 K/mm3 (1.3-6.0)
[2018-08-04 19:02] LABS: Hypochromia 1+
[2018-08-04 19:03] LABS: Microcytosis 1+
[2018-08-04 19:04] LABS: Platelet Estimate Normal (NORMAL)
[2018-08-04] MEDS ORDERED: WARFARIN SODIUM 1 MG TABLET ONE (19:27)
[2018-08-04] MEDS ORDERED: WARFARIN SODIUM 3 MG TABLET PO SCH (20:00)
[2018-08-04] MEDS: METOPROLOL TARTRATE 25 MG TABLET PO SCH (20:44)
[2018-08-04] MEDS: oxyCODONE HCL/ACETAMINOPHEN 1 TAB TABLET PO PRN (20:49)
[2018-08-05 05:20] LABS: Urine Bilirubin Negative (NEGATIVE); Urine Blood Negative /ul (NEGATIVE); Urine Ketone Negative (NEGATIVE); Urine Nitrite Negative (NEGATIVE); Urine Protein Negative (NEGATIVE); Urine Urobilinogen Normal (NORMAL)
[2018-08-05 05:27] LABS: Urine Appearance Cloudy (CLEAR); Urine Bacteria 1+; Urine Color Yellow; Urine RBC None Seen /hpf (0-5)
[2018-08-05] MEDS: LEVOTHYROXINE SODIUM 100 MCG TABLET PO SCH (07:00)
[2018-08-05] MEDS: oxyCODONE HCL/ACETAMINOPHEN 1 TAB TABLET PO PRN (07:36)
[2018-08-05] MEDS ORDERED: LEVOFLOXACIN IN DEXTROSE 5 % 750 MG/150 ML BAG IV ONE (08:00)
--- NOTE | 2018-08-05 08:29 | PN ---
Subjective - Date and Time Seen Date: 08/05/18 Time: 08:23 Subjective Narrative: patient still with hip and groin pain and feels pain with movement even on bed. WBC is 24. afebrile. septic work up started. Objective - Review of Systems Generalized/Overall Review: Denies: Chills, Fever EENTM: Denies: Blurred Vision Respiratory: Denies: Cough, Shortness of Breath Cardiac: Denies: Chest Pain, Palpitations Abdominal: Denies: Nausea, Vomiting Genitourinary Symptoms: Denies: Urgency, Frequency Musculoskeletal Complaints: Reports: Joint Pain, Back Pain Neurological: Denies: Headache, Numbness, Tingling Skin: Reports: Other - positive ulcer. Denies: Lesions - Vitals Vitals: Last Vital Signs Temp 36.4 C 08/05/18 07:46 Pulse 82 08/05/18 07:46 Resp 18 08/05/18 07:46 BP 109/51 08/05/18 07:46 Pulse Ox 96 08/05/18 07:46 - Abnormal Lab Findings Abnormal Lab Findings: Abnormal Lab Results 08/04/18 08/04/18 08/04/18 Range/Units 18:30 18:30 18:30 WBC 24.6 H (4.0-10.5) K/mm3 RBC 3.07 L (4.2-5.4) M/mm3 Hgb 9.0 L (12.5-16.0) gm/dL Hct 27.9 L (37.0-47.0) % Neutrophils % (Manual) 80 H (42-75) % Lymphocytes % (Manual) 14 L (20-51) % Neutrophils # (Manual) 19.7 H (1.3-6.0) K/mm3 Monocytes # (Manual) 1.5 H (0.0-1.0) k/mm3 ESR 49 H (0-15) mm/hr Potassium 4.9 H D (3.4-4.6) mmol/L Anion Gap 14.9 H (6.8-13.8) mmol/L BUN 47 H D (3-23) mg/dL Creatinine 1.66 H D (0.4-1.4) mg/dL Est GFR (Non-Af Amer) 31 L D (60-130) mL/min BUN/Creatinine Ratio 28.3 H (9.0-21.6) Random Glucose 153 H (70-110) mg/dL C-Reactive Prot, Quant 4.7 H (0.0-0.9) mg/dL Albumin 3.2 L (3.4-5.0) gm/dl Ur Leukocyte Esterase (NEGATIVE) /ul Urine WBC (0-5) /hpf Urine Bacteria (NONE) 08/05/18 Range/Units 05:15 WBC (4.0-10.5) K/mm3 RBC (4.2-5.4) M/mm3 Hgb (12.5-16.0) gm/dL Hct (37.0-47.0) % Neutrophils % (Manual) (42-75) % Lymphocytes % (Manual) (20-51) % Neutrophils # (Manual) (1.3-6.0) K/mm3 Monocytes # (Manual) (0.0-1.0) k/mm3 ESR (0-15) mm/hr Potassium (3.4-4.6) mmol/L Anion Gap (6.8-13.8) mmol/L BUN (3-23) mg/dL Creatinine (0.4-1.4) mg/dL Est GFR (Non-Af Amer) (60-130) mL/min BUN/Creatinine Ratio (9.0-21.6) Random Glucose (70-110) mg/dL C-Reactive Prot, Quant (0.0-0.9) mg/dL Albumin (3.4-5.0) gm/dl Ur Leukocyte Esterase 25 H (NEGATIVE) /ul Urine WBC 10-25 H (0-5) /hpf Urine Bacteria 1+ H (NONE) - Exam Constitutional: Present: Alert, Oriented x3, Cooperative, Elderly, Obese ENT Exam: Present: hearing grossly normal Neck: Present: supple Respiratory: Present: normal breath sounds, No rales, No wheezing Cardiovascular/Chest: Present: regular rate, rhythm, no JVD, no murmur Abdomen: Present: Normal bowel sounds, soft, nontender, nondistended Extremity: Present: no calf tenderness, other - positive ulcer-left leg. legs have been large as baseline. tender groin area and left anterior thigh area Skin Exam: Present: other - trace swelling and tenderness, posterior hip Assessment/Plan - Problems/Diagnosis (1) Left groin pain Problem: Deleted Narrative: rule out septic hip or extraarticullar infection. will do septic work up and get an MRI of her hip. Rocephin has been started. unlikely DVT due to her INR being therapeutic 2 days ago in [place]. repeat INR today. (2) UTI (urinary tract infection) Problem: Acute Qualifiers: Urinary tract infection type: acute cystitis Narrative: on urinalysis but no clinical s/sx. UCS pending. start on Abx. (3) Leg ulcer, left Problem: Chronic Qualifiers: Non-pressure ulcer stage: limited to breakdown of skin Qualified Code(s): L97.921 - Non-pressure chronic ulcer of unspecified part of left lower leg limited to breakdown of skin Narrative: wound clinic consulted. will get Xray of her left leg r/o OM. if something suspicious on bone- will do MRI. wound culture ordered. IV Abx started. (4) Low back pain Problem: Acute Qualifiers: Chronicity: acute Back pain laterality: left Sciatica laterality: sciatica of left side (5) Osteoarthritis Problem: Chronic Qualifiers: Osteoarthritis location: unspecified site Osteoarthritis type: primary Qualified Code(s): M19.91 - Primary osteoarthritis, unspecified site (6) History of total knee arthroplasty Problem: Resolved Qualifiers: Laterality: right Qualified Code(s): Z96.651 - Presence of right artificial knee joint (7) Obesity Problem: Chronic Qualifiers: (8) Hypothyroidism Problem: Chronic Qualifiers: (9) Hypertension Problem: Chronic Qualifiers: (10) Hyperlipidemia Problem: Chronic Qualifiers: (11) Atrial fibrillation Problem: Chronic Qualifiers:
[2018-08-05 08:38] LABS: Prothrombin Time (Patient) 22.6 Seconds (9.1-10.7)
[2018-08-05 08:41] LABS: INR 2.36 INR (0.92-1.08)
[2018-08-05] MEDS: TORSEMIDE 20 MG TABLET PO SCH (08:48)
[2018-08-05] MEDS: CHOLECALCIFEROL 1,000 UNIT CAPSULE PO SCH (08:48)
[2018-08-05] MEDS: METOPROLOL TARTRATE 25 MG TABLET PO SCH ×2 (08:49→16:27)
[2018-08-05] MEDS: CITALOPRAM HYDROBROMIDE 20 MG TABLET PO SCH (08:50)
[2018-08-05] MEDS: POTASSIUM CHLORIDE 20 MEQ TABLET.SA PO SCH (08:50)
[2018-08-05] MEDS: NORMAL SALINE 1,000 ML IV PRN ×3 (09:03→18:43)
--- NOTE | 2018-08-05 14:19 | CONS ---
[facility] - General Date of Service: 08/05/18 Source: patient Exam Limitations: no limitations - History of Present Illness Initial Comments: Patient is an 88 year old female, recently admitted to the hospital due to severe pain in her left hip. She states that she developed pain two days ago, that was so severe, she was unable to walk. She denies any injuries or falls. The patient is currently a patient of the [facility], for care of a hematoma to the left lower leg. She initially presented to our office in February 2018, after a fall. At that time, the hematoma was stable, with minimal drainage. The injury had occurred several weeks prior to that visit. During the next few weeks, the area opened and she developed a gaping wound. A Wound Vac was used to assist with healing. This was discontinued several weeks ago, due to excellent healing. The ulcer has been chronically colonized with Proteus, and treatment has included Ceftin. She tolerates the antibiotic well. The ulcer had improved significantly at her prior visit. The patient presents to our office in a wheelchair, however she states that she walks at home. Her medical history includes, anemia, atrial fibrillation, diabetes, hypertension, hyperlipidemia, hypothyroidism and osteoarthritis. Allergies/Adverse Reactions: Allergies iodine Allergy (Intermediate, Verified 02/23/18 13:16) Blisters ibuprofen Adverse Reaction (Intermediate, Verified 02/23/18 13:16) Swelling (Other) bupropion HCl [From Wellbutrin] Adverse Reaction (Mild, Verified 02/23/18 13:16) Other Didn't feel good Home Medications: Home Medications Medication Instructions Recorded Last Taken Acetaminophen [Tylenol] 500 mg PO Q6H PRN #0 tab 12/17/13 Unknown cane See Dose Instructions .ROUTE 12/15/17 Unknown .MEDSUPPLY #1 ea levothyroxine 100 mcg tablet 100 mcg PO DAILY #90 tab 01/08/18 Unknown torsemide 20 mg tablet 20 mg PO DAILY #90 tab 01/08/18 Unknown Cholecalciferol (Vitamin D3) 1,000 unit PO DAILY 02/16/18 Unknown [Vitamin D3] metoprolol tartrate 75 mg tablet 75 mg PO BID #180 tab 03/06/18 Unknown polyethylene glycol 3350 17 17 g PO DAILY PRN #238 g 03/18/18 Unknown gram/dose oral powder citalopram 20 mg tablet 20 mg PO DAILY #30 tab 04/15/18 Unknown warfarin 3 mg tablet 3 mg PO DAILY #30 tab 05/27/18 Unknown potassium chloride ER 20 mEq 20 meq PO DAILY #30 tab 06/08/18 Unknown tablet,extended release(part/cryst) simvastatin 20 mg tablet 20 mg PO HS #30 tab 07/06/18 Unknown HYDROcodone/ACETAMINOPHEN 1 ea PO QID PRN 08/04/18 Unknown [Hydrocodon-Acetaminophen 5-325] Prednisone 60 mg PO DAILY 08/04/18 Unknown Procedures ANESTH INJECT-SPIN CANAL (01/19/09) Arthrocentesis (02/02/14) Drainage of Left Lower Leg, Percutaneous Approach (02/17/18) INJECT STEROID (01/19/09) Injection of therapeutic substance into joint or ligament (01/09/09) Injection or infusion of other therapeutic or prophylactic substance (01/09/09) Introduction of Serum, Toxoid and Vaccine into Muscle, Percutaneous Approach (02/17/18) SPINAL CANAL INJECT NEC (01/19/09) Total knee replacement (12/07/13) Medications - Medications Current Medications: Current Medications Cholecalciferol (Vitamin D) 1,000 unit PO DAILY [facility] Stop: 09/04/18 09:01 Last Admin: 08/05/18 08:48 Dose: 1,000 unit Documented by: Citalopram Hydrobromide (Celexa) 20 mg PO DAILY [facility] Stop: 09/04/18 09:01 Last Admin: 08/05/18 08:50 Dose: 20 mg Documented by: Hydromorphone HCl (Dilaudid) 1 mg IV Q4H PRN PRN Reason: Severe Pain (pain scale 7-10) Stop: 09/03/18 17:44 Last Admin: 08/05/18 11:15 Dose: 1 mg Documented by: Sodium Chloride (Sodium Chloride 0.9%) 1,000 mls @ 125 mls/hr IV .Q8H PRN PRN Reason: HYDRATION Stop: 09/04/18 08:02 Last Admin: 08/05/18 09:03 Dose: 125 mls/hr Documented by: Ceftriaxone Sodium 1,000 mg/ (Dextrose/Water) 100 mls @ 200 mls/hr IV Q24H [facility] Stop: 09/04/18 08:31 Last Admin: 08/05/18 09:53 Dose: 200 mls/hr Documented by: Levothyroxine Sodium (Synthroid) 100 mcg PO DAILY@0700 [facility] Stop: 09/04/18 07:01 Last Admin: 08/05/18 07:00 Dose: 100 mcg Documented by: Metoprolol Tartrate (Lopressor) 75 mg PO BIDWM [facility] Stop: 09/03/18 20:01 Last Admin: 08/05/18 08:49 Dose: 75 mg Documented by: Oxycodone/Acetaminophen (Percocet 5 Mg/325 Mg) 1 tab PO Q4H PRN PRN Reason: Moderate Pain (pain scale 4-6) Stop: 09/03/18 18:03 Last Admin: 08/05/18 07:36 Dose: 1 tab Documented by: Potassium Chloride (K-Dur) 20 meq PO DAILY [facility] Stop: 09/04/18 09:01 Last Admin: 08/05/18 08:50 Dose: 20 meq Documented by: Torsemide (Demadex) 20 mg PO DAILY [facility] Stop: 09/04/18 09:01 Last Admin: 08/05/18 08:48 Dose: 20 mg Documented by: Warfarin Sodium (Coumadin) 3 mg PO DAILY@1700 [facility] Stop: 09/03/18 20:01 Last Admin: 08/04/18 19:39 Dose: 3 mg Documented by: Review of Systems - Review of Systems Generalized/Overall Review: Absent: Chills, Fever EENTM: Absent: Nose Congestion Respiratory: Present: Shortness of Breath. Absent: Cough Cardiac: Present: Edema. Absent: Chest Pain Abdominal: Absent: Nausea, Vomiting Musculoskeletal: Present: Joint Pain Skin: Present: Lesions Physical Examination - Exam Vital Signs: Vital Signs - Last Taken Temp 36.7 C 08/05/18 10:47 Pulse 79 08/05/18 10:47 Resp 16 08/05/18 10:47 BP 106/50 08/05/18 10:47 Pulse Ox 99 08/05/18 10:47 O2 Oxygen Delivery Method Room Air Constitutional: Present: Alert, No distress, Morbidly obese ENT Exam: Present: hearing grossly normal Respiratory: Present: no respiratory distress Skin Exam: Present: other - ulcer to her left lower leg measures ~ 5.0 x 3.0 x 0.1. no erythema. minimal serous drainage. no necrosis. red granulation tissue in the wound bed. Eye contact: Present: cooperative Thoughts: Present: normal thought pattern - Results and Findings: Lab/Microbiology results last 24 hrs: Abnormal/Pending Laboratory Last 24 HRS 08/05/18 08/05/18 08/04/18 08:18 05:15 18:30 WBC RBC Hgb Hct Neutrophils % (Manual) Lymphocytes % (Manual) Neutrophils # (Manual) Monocytes # (Manual) ESR PT 22.6 H INR (Anticoag Therapy) 2.36 H Potassium 4.9 H D Anion Gap 14.9 H BUN 47 H D Creatinine 1.66 H D Est GFR (Non-Af Amer) 31 L D BUN/Creatinine Ratio 28.3 H Random Glucose 153 H C-Reactive Prot, Quant 4.7 H Albumin 3.2 L Ur Leukocyte Esterase 25 H Urine WBC 10-25 H Urine Bacteria 1+ H 08/04/18 08/04/18 18:30 18:30 WBC 24.6 H RBC 3.07 L Hgb 9.0 L Hct 27.9 L Neutrophils % (Manual) 80 H Lymphocytes % (Manual) 14 L Neutrophils # (Manual) 19.7 H Monocytes # (Manual) 1.5 H ESR 49 H PT INR (Anticoag Therapy) Potassium Anion Gap BUN Creatinine Est GFR (Non-Af Amer) BUN/Creatinine Ratio Random Glucose C-Reactive Prot, Quant Albumin Ur Leukocyte Esterase Urine WBC Urine Bacteria - Assessments/Findings (1) Leg ulcer, left Diagnosis(s): The ulcer is much improved from her most recent visit to our office. Due to the excellent granulation tissue and decreased drainage, recommend changing the dressing to Sandi. This will be covered with gauze and secured with tape. The area will be washed with hibicleanse at dressing changes. The dressings will be changed every three days. The patient will wear two layers of tubigrip for compression. We will be happy to continue care at the [facility], as scheduled, following discharge from the hospital. Thank you for this consult. Problem: Chronic Qualifiers: Non-pressure ulcer stage: limited to breakdown of skin Qualified Code(s): L97.921 - Non-pressure chronic ulcer of unspecified part of left lower leg limited to breakdown of skin
--- NOTE | 2018-08-05 14:29 | PN ---
Progess Note - Interim Date: 08/05/18 Time: 14: Narrative: 08/05/18 14:27 MRI shows adductor blade abscess and cellulitis, left hip. will get orthopedic consult.
[2018-08-05] MEDS ORDERED: NORMAL SALINE 500 ML IV ONE ×3 (14:50→18:01)
--- NOTE | 2018-08-05 15:53 | DS ---
Transfer Discharge Summary - Diagnosis(s)/Problems (1) Abscess Narrative: adductor blade. received IV rocephin. Problem: Acute (2) Cellulitis of hip, left Narrative: received IV Rocephin. Problem: Acute (3) UTI (urinary tract infection) Narrative: received IV rocephin. Problem: Acute (4) Acute kidney insufficiency Narrative: last Cr was 1.04 in 02/2018. likely prerenal. on IVF . Problem: Acute (5) Leg ulcer, left Narrative: last growth 07/13/18 in Wound clinic was proteus Mirabilis sensitive to Rocephin. Problem: Chronic (6) Low back pain Problem: Acute (7) Osteoarthritis Problem: Chronic (8) History of total knee arthroplasty Problem: Resolved (9) Obesity Problem: Chronic (10) Hypothyroidism Problem: Chronic (11) Hypertension Problem: Chronic (12) Hyperlipidemia Problem: Chronic (13) Atrial fibrillation Problem: Chronic (14) Anemia Narrative: last Hb was in 02/2018 was 9.1 after a fall with large hematoma of her left leg. she developed a chronic ulcer then. she had been following up with Wound clinic since then. Problem: Chronic - Course Description of Stay: Maggie Patel is an 88-year-old white female with past medical history of diabetes mellitus type 2, hypertension, hyperlipidemia, chronic atrial fibrillation, osteoarthritis, status post right total knee arthroplasty, who was admitted on 08/04/2018 because of severe left groin and hip pain. She also complained of low back pain that goes to the front and back over her thigh but does not extend distal to her left knee . She denies any history of recent trauma or fall, fever or chills. The pain started 2 days prior to admission. She went to the emergency room in [place] 1 day [employer] where they had x-rays done of her pelvis and femur. It did not show any acute osseous findings. 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 They gave her hydrocodone and prednisone and discharged her. She was told that she had a pulled muscle. On the morning of admission they called the ambulance for lift assistance to bring her to [facility]. Upon lifting her she got weak, dizzy, diaphoretic and felt cold. As per EMS her radial pulse could not be felt. Her blood pressure was 98/50 and so they laid her down. She was then transferred to our emergency room by ambulance. In the ED, lumbosacral x-ray done showed multilevel degenerative disc disease with facet osteoarthropathy. She rated her pain as 10 over 10 and was not able to ambulate in the emergency room even with assistance.. She was then admitted for observation and for pain control. She follows up with our Wound clinic for a chronic ulcer on her left leg and was just recently on Wound vac and cephalosporin antibiotic. Her INR in [place] yesterday was 2.1 as per her daughter and therefore unlikely DVT. Her WBC came back elevated and UA showed UTI. She was started on IV Rocephin and septic work up was initiated. Her tib- fib xray did not show acute osseous findings to suggest OM. Her BC/UCS are pending. Her MRI showed an abscess of her adductor blade and cellulitis of her left hip. Orthopedic was consulted and they stopped her antibiotics as they wanted to have culture of the abscess but they felt the area was dangerous area structurally. They recommended transfer to a higher institution. I will hold her Coumadin and will give her Vit k x 1. Her BP have been on the low side and will hold her torsemide and metoprolol ( she got them this morning). She had been not taking too much fluid as she was afraid to put weight her left hip if she needs to go to the bathroom for the last few days. She is getting IV saline bolus. Discussed with [facility]- Dr. Hammond. They are accepting the patient. They want another liter of IVF, 4 units of FFP, and the MRI images sent to them. Javier catheter insertion will be started. The patient is a full code and I explained to her the risks and benefits of anticipated surgery. She is willing to go ahead. ADDENDUM: After reviewing the images sent to [facility] they backed down from their acceptance. Will call [facility]. Consultation Done:: Orthopedics Procedures Performed: none - Results and Findings Results and Findings: Laboratory Results - last 24 hr 08/04/18 08/04/18 08/04/18 18:30 18:30 18:30 WBC 24.6 H RBC 3.07 L Hgb 9.0 L Hct 27.9 L MCV 90.9 MCH 29.3 MCHC 32.3 RDW 13.9 Plt Count 217 MPV 10.3 Neutrophils % (Manual) 80 H Lymphocytes % (Manual) 14 L Monocytes % (Manual) 6 Neutrophils # (Manual) 19.7 H Lymphocytes # (Manual) 3.4 Monocytes # (Manual) 1.5 H Platelet Estimate Normal Hypochromasia 1+ Microcytosis 1+ ESR 49 H PT INR (Anticoag Therapy) Sodium 133 Plasma Sodium 134 Potassium 4.9 H D Chloride 97 Carbon Dioxide 26.0 Anion Gap 14.9 H BUN 47 H D Creatinine 1.66 H D Est GFR (Non-Af Amer) 31 L D BUN/Creatinine Ratio 28.3 H Random Glucose 153 H Calcium 8.6 Calcium Adj for Albumin 8.9 Total Bilirubin 0.7 AST 45 ALT 32 Alkaline Phosphatase 65 C-Reactive Prot, Quant 4.7 H Total Protein 6.4 Albumin 3.2 L Urine Color Urine Appearance Urine pH Ur Specific [place] Urine Protein Urine Glucose (UA) Urine Ketones Urine Blood Urine Nitrate Urine Bilirubin Urine Urobilinogen Ur Leukocyte Esterase Urine RBC Urine WBC Ur Epithelial Cells Urine Bacteria Urine Culture Comments Urine Comment 08/05/18 08/05/18 05:15 08:18 WBC RBC Hgb Hct MCV MCH MCHC RDW Plt Count MPV Neutrophils % (Manual) Lymphocytes % (Manual) Monocytes % (Manual) Neutrophils # (Manual) Lymphocytes # (Manual) Monocytes # (Manual) Platelet Estimate Hypochromasia Microcytosis ESR PT 22.6 H INR (Anticoag Therapy) 2.36 H Sodium Plasma Sodium Potassium Chloride Carbon Dioxide Anion Gap BUN Creatinine Est GFR (Non-Af Amer) BUN/Creatinine Ratio Random Glucose Calcium Calcium Adj for Albumin Total Bilirubin AST ALT Alkaline Phosphatase C-Reactive Prot, Quant Total Protein Albumin Urine Color Yellow Urine Appearance Cloudy Urine pH 5.0 Ur Specific Franklin 1.020 Urine Protein Negative Urine Glucose (UA) Negative Urine Ketones Negative Urine Blood Negative Urine Nitrate Negative Urine Bilirubin Negative Urine Urobilinogen Normal Ur Leukocyte Esterase 25 H Urine RBC None seen Urine WBC 10-25 H Ur Epithelial Cells 0-5 Urine Bacteria 1+ H Urine Culture Comments Culture to follow Urine Comment Cancelled - Medications Medications: Active Medications Cholecalciferol (Vitamin D) 1,000 unit PO DAILY REPLACED BY [facility] Stop: 09/04/18 09:01 Last Admin: 08/05/18 08:48 Dose: 1,000 unit Documented by: Citalopram Hydrobromide (Celexa) 20 mg PO DAILY [facility]PLAC[facility] Stop: 09/04/18 09:01 Last Admin: 08/05/18 08:50 Dose: 20 mg Documented by: Hydromorphone HCl (Dilaudid) 1 mg IV Q4H PRN PRN Reason: Severe Pain (pain scale 7-10) Stop: 09/03/18 17:44 Last Admin: 08/05/18 11:15 Dose: 1 mg Documented by: Sodium Chloride (Sodium Chloride 0.9%) 1,000 mls @ 125 mls/hr IV .Q8H PRN PRN Reason: HYDRATION Stop: 09/04/18 08:02 Last Infusion: 08/05/18 15:01 Dose: Infused Documented by: Levothyroxine Sodium (Synthroid) 100 mcg PO DAILY@0700 [facility]PLACED [facility] Stop: 09/04/18 07:01 Last Admin: 08/05/18 07:00 Dose: 100 mcg Documented by: Metoprolol Tartrate (Lopressor) 75 mg PO BIDWM REPLACED BY [facility] Stop: 09/03/18 20:01 Last Admin: 08/05/18 08:49 Dose: 75 mg Documented by: Oxycodone/Acetaminophen (Percocet 5 Mg/325 Mg) 1 tab PO Q4H PRN PRN Reason: Moderate Pain (pain scale 4-6) Stop: 09/03/18 18:03 Last Admin: 08/05/18 07:36 Dose: 1 tab Documented by: Potassium Chloride (K-Dur) 20 meq PO DAILY [facility]PL[facility] Stop: 09/04/18 09:01 Last Admin: 08/05/18 08:50 Dose: 20 meq Documented by: Torsemide (Demadex) 20 mg PO DAILY REPLACED [facility] Stop: 09/04/18 09:01 Last Admin: 08/05/18 08:48 Dose: 20 mg Documented by: Warfarin Sodium (Coumadin) 3 mg PO DAILY@1700 REPLACED [facility] Stop: 09/03/18 20:01 Last Admin: 08/04/18 19:39 Dose: 3 mg Documented by: Discontinued Medications Diphenhydramine HCl (Benadryl) 25 mg IM ONCE ONE Stop: 08/04/18 11:44 Last Admin: 08/04/18 11:56 Dose: 25 mg Documented by: Ceftriaxone Sodium 1,000 mg/ (Dextrose/Water) 100 mls @ 200 mls/hr IV Q24H [facility] Stop: 09/04/18 08:31 Last Infusion: 08/05/18 10:23 Dose: Infused Documented by: Sodium Chloride (Sodium Chloride 0.9%) 500 mls @ 999 mls/hr IV .Q31M ONE Stop: 08/05/18 15:20 Last Admin: 08/05/18 15:01 Dose: 999 mls/hr Documented by: Morphine Sulfate (Morphine Sulfate) 8 mg IM ONCE ONE Stop: 08/04/18 11:44 Last Admin: 08/04/18 11:55 Dose: 8 mg Documented by: Ondansetron HCl (Zofran Odt) 8 mg PO ONCE ONE Stop: 08/04/18 16:07 Last Admin: 08/04/18 16:13 Dose: 8 mg Documented by: Orphenadrine Citrate (Norflex) 60 mg IM ONCE ONE Stop: 08/04/18 11:44 Last Admin: 08/04/18 11:59 Dose: 60 mg Documented by: - Disposition Disposition: Short Term Hospital Inpatient Condition: Stable Discharge Date: 08/05/18
--- NOTE | 2018-08-05 16:43 | CONS ---
HPI - General Date of Service: 08/05/18 Narrative: Patient reports she has significant left thigh pain. She notes the pain radiates to her back, worse with movement better with rest, she notes she has significant wound on her lower leg, nursing states that this been treated at the wound clinic. Patient notes she has been feeling well over the last few days. Source: patient, RN/MD - History of Present Illness Allergies/Adverse Reactions: Allergies iodine Allergy (Intermediate, Verified 02/23/18 13:16) Blisters ibuprofen Adverse Reaction (Intermediate, Verified 02/23/18 13:16) Swelling (Other) bupropion HCl [From Wellbutrin] Adverse Reaction (Mild, Verified 02/23/18 13:16) Other Didn't feel good Home Medications: Home Medications Medication Instructions Recorded Last Taken Acetaminophen [Tylenol] 500 mg PO Q6H PRN #0 tab 12/17/13 Unknown cane See Dose Instructions .ROUTE 12/15/17 Unknown .MEDSUPPLY #1 ea levothyroxine 100 mcg tablet 100 mcg PO DAILY #90 tab 01/08/18 Unknown torsemide 20 mg tablet 20 mg PO DAILY #90 tab 01/08/18 Unknown Cholecalciferol (Vitamin D3) 1,000 unit PO DAILY 02/16/18 Unknown [Vitamin D3] metoprolol tartrate 75 mg tablet 75 mg PO BID #180 tab 03/06/18 Unknown polyethylene glycol 3350 17 17 g PO DAILY PRN #238 g 03/18/18 Unknown gram/dose oral powder citalopram 20 mg tablet 20 mg PO DAILY #30 tab 04/15/18 Unknown warfarin 3 mg tablet 3 mg PO DAILY #30 tab 05/27/18 Unknown potassium chloride ER 20 mEq 20 meq PO DAILY #30 tab 06/08/18 Unknown tablet,extended release(part/cryst) simvastatin 20 mg tablet 20 mg PO HS #30 tab 07/06/18 Unknown HYDROcodone/ACETAMINOPHEN 1 ea PO QID PRN 08/04/18 Unknown [Hydrocodon-Acetaminophen 5-325] Prednisone 60 mg PO DAILY 08/04/18 Unknown Procedures ANESTH INJECT-SPIN CANAL (01/19/09) Arthrocentesis (02/02/14) Drainage of Left Lower Leg, Percutaneous Approach (02/17/18) INJECT STEROID (01/19/09) Injection of therapeutic substance into joint or ligament (01/09/09) Injection or infusion of other therapeutic or prophylactic substance (01/09/09) Introduction of Serum, Toxoid and Vaccine into Muscle, Percutaneous Approach (02/17/18) SPINAL CANAL INJECT NEC (01/19/09) Total knee replacement (12/07/13) Medications - Medications Current Medications: Current Medications Cholecalciferol (Vitamin D) 1,000 unit PO DAILY [facility] Stop: 09/04/18 09:01 Last Admin: 08/05/18 08:48 Dose: 1,000 unit Documented by: Citalopram Hydrobromide (Celexa) 20 mg PO DAILY [facility] Stop: 09/04/18 09:01 Last Admin: 08/05/18 08:50 Dose: 20 mg Documented by: Hydromorphone HCl (Dilaudid) 1 mg IV Q4H PRN PRN Reason: Severe Pain (pain scale 7-10) Stop: 09/03/18 17:44 Last Admin: 08/05/18 11:15 Dose: 1 mg Documented by: Sodium Chloride (Sodium Chloride 0.9%) 1,000 mls @ 125 mls/hr IV .Q8H PRN PRN Reason: HYDRATION Stop: 09/04/18 08:02 Last Admin: 08/05/18 15:35 Dose: 125 mls/hr Documented by: Sodium Chloride (Sodium Chloride 0.9%) 500 mls @ 999 mls/hr IV .Q31M ONE Stop: 08/05/18 16:56 Last Admin: 08/05/18 16:31 Dose: 999 mls/hr Documented by: Levothyroxine Sodium (Synthroid) 100 mcg PO DAILY@0700 [facility] Stop: 09/04/18 07:01 Last Admin: 08/05/18 07:00 Dose: 100 mcg Documented by: Metoprolol Tartrate (Lopressor) 75 mg PO BIDWM [facility] Stop: 09/03/18 20:01 Last Admin: 08/05/18 16:27 Dose: Not Given Documented by: Oxycodone/Acetaminophen (Percocet 5 Mg/325 Mg) 1 tab PO Q4H PRN PRN Reason: Moderate Pain (pain scale 4-6) Stop: 09/03/18 18:03 Last Admin: 08/05/18 07:36 Dose: 1 tab Documented by: Potassium Chloride (K-Dur) 20 meq PO DAILY [facility] Stop: 09/04/18 09:01 Last Admin: 08/05/18 08:50 Dose: 20 meq Documented by: Torsemide (Demadex) 20 mg PO DAILY [facility] Stop: 09/04/18 09:01 Last Admin: 08/05/18 08:48 Dose: 20 mg Documented by: Warfarin Sodium (Coumadin) 3 mg PO DAILY@1700 [facility] Stop: 09/03/18 20:01 Last Admin: 08/04/18 19:39 Dose: 3 mg Documented by: Physical Examination - Exam Vital Signs: Vital Signs - Last Taken Temp 36.4 C 08/05/18 14:29 Pulse 80 08/05/18 16:27 Resp 15 08/05/18 14:29 BP 88/62 L 08/05/18 16:27 Pulse Ox 95 08/05/18 14:29 O2 Oxygen Delivery Method Room Air Constitutional: Present: Alert, Mild distress Extremity: Present: other - LLE--> significant ecchymosis diffusely about patient's inner thigh, tenderness to palpation diffusely over groin region, distal sensation intact light touch, distal capillary refill sluggish, venous stasis circumferentially around lower leg, approximately 10 cm open wound, no significant drainage, moderate erythema diffusely about lower leg - Results and Findings: Lab/Microbiology results last 24 hrs: Abnormal/Pending Laboratory Last 24 HRS 08/05/18 08/05/18 08/04/18 08:18 05:15 18:30 WBC RBC Hgb Hct Neutrophils % (Manual) Lymphocytes % (Manual) Neutrophils # (Manual) Monocytes # (Manual) ESR PT 22.6 H INR (Anticoag Therapy) 2.36 H Potassium 4.9 H D Anion Gap 14.9 H BUN 47 H D Creatinine 1.66 H D Est GFR (Non-Af Amer) 31 L D BUN/Creatinine Ratio 28.3 H Random Glucose 153 H C-Reactive Prot, Quant 4.7 H Albumin 3.2 L Ur Leukocyte Esterase 25 H Urine WBC 10-25 H Urine Bacteria 1+ H 08/04/18 08/04/18 18:30 18:30 WBC 24.6 H RBC 3.07 L Hgb 9.0 L Hct 27.9 L Neutrophils % (Manual) 80 H Lymphocytes % (Manual) 14 L Neutrophils # (Manual) 19.7 H Monocytes # (Manual) 1.5 H ESR 49 H PT INR (Anticoag Therapy) Potassium Anion Gap BUN Creatinine Est GFR (Non-Af Amer) BUN/Creatinine Ratio Random Glucose C-Reactive Prot, Quant Albumin Ur Leukocyte Esterase Urine WBC Urine Bacteria Culture 08/04/18 17:21 - Final Nares MRSA Negative - Assessments/Findings (1) Abscess Problem: Acute (2) Cellulitis of hip, left Problem: Acute Plan - Plan Plan: -88-year-old female presents with left hip pain and inability to ambulate. Consultation from medicine after MRI revealed significant abscess with cellulitis in the deep tissues of the patient's left hip. Exam reveals significant tenderness to palpation in this region, no diffuse cellulitis on the superficial skin currently, significant ecchymosis. Note patient has a chronic wound of her lower leg that has been treated at the wound clinic for an extended period of time. Patient's blood pressure has dropped mildly since being given a dose of Dilaudid. 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 Patient has significant comorbidities that could lead to significant complications if surgical intervention of the incision and drainage was performed. Due to patient's overall health, comorbidities, significant infection based on MRI findings as well as labs would recommend transfer to higher level of care. Note patient's INR is also therapeutic at 2.36, this is significantly high to perform acute surgical intervention. Also based on the location of the abscess concern for complications during surgery. I have reviewed this case with Dr. Duron, he agrees and recommends the transfer to higher level of care for surgical intervention and further treatment with antibiotics. Note that Dr. Duron DC'd antibiotic treatment at this time to be held until appropriate cultures have been obtained to identify infection. I also discussed this case with Dr. Oliveira and gave him our recommendations for transfer.
[2018-08-05] MEDS ORDERED: ALPRAZolam 0.25 MG TABLET PO ONE (16:50)
[2018-08-05] MEDS ORDERED: PHYTONADIONE (VIT K1) 5 MG TABLET PO ONE (16:57)
[2018-08-05] MEDS ORDERED: NORMAL SALINE 1,000 ML IV ONE (17:54)
--- NOTE | 2018-08-05 18:31 | DS ---
Transfer Discharge Summary - Diagnosis(s)/Problems (1) Abscess Problem: Acute (2) Cellulitis of hip, left Problem: Acute (3) UTI (urinary tract infection) Problem: Acute (4) Acute kidney insufficiency Problem: Acute (5) Leg ulcer, left Problem: Chronic (6) Low back pain Problem: Acute (7) Osteoarthritis Problem: Chronic (8) History of total knee arthroplasty Problem: Resolved (9) Obesity Problem: Chronic (10) Hypothyroidism Problem: Chronic (11) Hypertension Problem: Chronic (12) Hyperlipidemia Problem: Chronic (13) Atrial fibrillation Problem: Chronic (14) Anemia Narrative: Hb in 02/2018 was 9.1 when she developed a large hematoma of her left leg after a fall and then developed a nonhealing chronic ulcer. Problem: Chronic - Results and Findings Results and Findings: Laboratory Results - last 24 hr 08/04/18 08/04/18 08/04/18 18:30 18:30 18:30 WBC 24.6 H RBC 3.07 L Hgb 9.0 L Hct 27.9 L MCV 90.9 MCH 29.3 MCHC 32.3 RDW 13.9 Plt Count 217 MPV 10.3 Neutrophils % (Manual) 80 H Lymphocytes % (Manual) 14 L Monocytes % (Manual) 6 Neutrophils # (Manual) 19.7 H Lymphocytes # (Manual) 3.4 Monocytes # (Manual) 1.5 H Platelet Estimate Normal Hypochromasia 1+ Microcytosis 1+ ESR 49 H PT INR (Anticoag Therapy) Sodium 133 Plasma Sodium 134 Potassium 4.9 H D Chloride 97 Carbon Dioxide 26.0 Anion Gap 14.9 H BUN 47 H D Creatinine 1.66 H D Est GFR (Non-Af Amer) 31 L D BUN/Creatinine Ratio 28.3 H Random Glucose 153 H Calcium 8.6 Calcium Adj for Albumin 8.9 Total Bilirubin 0.7 AST 45 ALT 32 Alkaline Phosphatase 65 C-Reactive Prot, Quant 4.7 H Total Protein 6.4 Albumin 3.2 L Urine Color Urine Appearance Urine pH Ur Specific [place] Urine Protein Urine Glucose (UA) Urine Ketones Urine Blood Urine Nitrate Urine Bilirubin Urine Urobilinogen Ur Leukocyte Esterase Urine RBC Urine WBC Ur Epithelial Cells Urine Bacteria Urine Culture Comments Urine Comment 08/05/18 08/05/18 05:15 08:18 WBC RBC Hgb Hct MCV MCH MCHC RDW Plt Count MPV Neutrophils % (Manual) Lymphocytes % (Manual) Monocytes % (Manual) Neutrophils # (Manual) Lymphocytes # (Manual) Monocytes # (Manual) Platelet Estimate Hypochromasia Microcytosis ESR PT 22.6 H INR (Anticoag Therapy) 2.36 H Sodium Plasma Sodium Potassium Chloride Carbon Dioxide Anion Gap BUN Creatinine Est GFR (Non-Af Amer) BUN/Creatinine Ratio Random Glucose Calcium Calcium Adj for Albumin Total Bilirubin AST ALT Alkaline Phosphatase C-Reactive Prot, Quant Total Protein Albumin Urine Color Yellow Urine Appearance Cloudy Urine pH 5.0 Ur Specific [place] 1.020 Urine Protein Negative Urine Glucose (UA) Negative Urine Ketones Negative Urine Blood Negative Urine Nitrate Negative Urine Bilirubin Negative Urine Urobilinogen Normal Ur Leukocyte Esterase 25 H Urine RBC None seen Urine WBC 10-25 H Ur Epithelial Cells 0-5 Urine Bacteria 1+ H Urine Culture Comments Culture to follow Urine Comment Cancelled - Medications Medications: Active Medications Cholecalciferol (Vitamin D) 1,000 unit PO DAILY [facility] Stop: 09/04/18 09:01 Last Admin: 08/05/18 08:48 Dose: 1,000 unit Documented by: Citalopram Hydrobromide (Celexa) 20 mg PO DAILY [facility] Stop: 09/04/18 09:01 Last Admin: 08/05/18 08:50 Dose: 20 mg Documented by: Hydromorphone HCl (Dilaudid) 1 mg IV Q4H PRN PRN Reason: Severe Pain (pain scale 7-10) Stop: 09/03/18 17:44 Last Admin: 08/05/18 11:15 Dose: 1 mg Documented by: Sodium Chloride (Sodium Chloride 0.9%) 1,000 mls @ 125 mls/hr IV .Q8H PRN PRN Reason: HYDRATION Stop: 09/04/18 08:02 Last Infusion: 08/05/18 16:31 Dose: 0 mls/hr Documented by: Sodium Chloride (Sodium Chloride 0.9%) 500 mls @ 999 mls/hr IV .Q31M ONE Stop: 08/05/18 18:31 Last Admin: 08/05/18 18:02 Dose: 999 mls/hr Documented by: Levothyroxine Sodium (Synthroid) 100 mcg PO DAILY@0700 [facility] Stop: 09/04/18 07:01 Last Admin: 08/05/18 07:00 Dose: 100 mcg Documented by: Metoprolol Tartrate (Lopressor) 75 mg PO BIDWM [facility] Stop: 09/03/18 20:01 Last Admin: 08/05/18 16:27 Dose: Not Given Documented by: Oxycodone/Acetaminophen (Percocet 5 Mg/325 Mg) 1 tab PO Q4H PRN PRN Reason: Moderate Pain (pain scale 4-6) Stop: 09/03/18 18:03 Last Admin: 08/05/18 07:36 Dose: 1 tab Documented by: Potassium Chloride (K-Dur) 20 meq PO DAILY [facility] Stop: 09/04/18 09:01 Last Admin: 08/05/18 08:50 Dose: 20 meq Documented by: Torsemide (Demadex) 20 mg PO DAILY [facility] Stop: 09/04/18 09:01 Last Admin: 08/05/18 08:48 Dose: 20 mg Documented by: Warfarin Sodium (Coumadin) 3 mg PO DAILY@1700 [facility] Stop: 09/03/18 20:01 Last Admin: 08/04/18 19:39 Dose: 3 mg Documented by: Discontinued Medications Alprazolam (Xanax) 0.25 mg PO ONCE ONE Stop: 08/05/18 16:51 Last Admin: 08/05/18 16:45 Dose: 0.25 mg Documented by: Diphenhydramine HCl (Benadryl) 25 mg IM ONCE ONE Stop: 08/04/18 11:44 Last Admin: 08/04/18 11:56 Dose: 25 mg Documented by: Ceftriaxone Sodium 1,000 mg/ (Dextrose/Water) 100 mls @ 200 mls/hr IV Q24H [facility] Stop: 09/04/18 08:31 Last Infusion: 08/05/18 10:23 Dose: Infused Documented by: Sodium Chloride (Sodium Chloride 0.9%) 500 mls @ 999 mls/hr IV .Q31M ONE Stop: 08/05/18 15:20 Last Infusion: 08/05/18 15:32 Dose: Infused Documented by: Sodium Chloride (Sodium Chloride 0.9%) 500 mls @ 999 mls/hr IV .Q31M ONE Stop: 08/05/18 16:56 Last Admin: 08/05/18 16:31 Dose: 999 mls/hr Documented by: Sodium Chloride (Sodium Chloride 0.9%) 1,000 mls @ 999 mls/hr IV .Q1H1M ONE Stop: 08/05/18 18:54 Last Admin: 08/05/18 18:03 Dose: Not Given Documented by: Morphine Sulfate (Morphine Sulfate) 8 mg IM ONCE ONE Stop: 08/04/18 11:44 Last Admin: 08/04/18 11:55 Dose: 8 mg Documented by: Ondansetron HCl (Zofran Odt) 8 mg PO ONCE ONE Stop: 08/04/18 16:07 Last Admin: 08/04/18 16:13 Dose: 8 mg Documented by: Orphenadrine Citrate (Norflex) 60 mg IM ONCE ONE Stop: 08/04/18 11:44 Last Admin: 08/04/18 11:59 Dose: 60 mg Documented by: Phytonadione (Vitamin K) 5 mg PO ONCE ONE Stop: 08/05/18 16:58 Last Admin: 08/05/18 17:12 Dose: 5 mg Documented by: - Disposition Disposition: Short Term Hospital Inpatient Condition: Stable
[2018-08-05 18:58] LABS: Mean Cell Volume 91.4 fl (78-100); Mean Corpuscular Hemoglobin 29.8 pg (27-31); Mean Corpuscular Hgb Conc 32.6 g/dl (32-36); Mean Platelet Volume 9.8 fl (8-12.5); Platelet Count 220 K/mm3 (150-450); Red Blood Count 2.45 M/mm3 (4.2-5.4); Red Cell Distribution Width 13.7 % (11.5-14.0); White Blood Count 21.1 K/mm3 (4.0-10.5)
[2018-08-05 19:04] LABS: Anion Gap 14.1 mmol/L (6.8-13.8); BUN/Creatinine Ratio 34.1 (9.0-21.6); Calcium * 8.3 mg/dL (7.9-10.9); Carbon Dioxide 23.8 mmol/L (24-32.6); Estimated Creat Clear 19.1; Potassium 4.9 mmol/L (3.4-4.6)
[2018-08-05 19:11] LABS: Hematocrit 22.4 % (37.0-47.0); Hemoglobin 7.3 gm/dL (12.5-16.0)
[2018-08-05 19:12] LABS: Total Cells Counted 100
[2018-08-05 19:46] LABS: Atypical (Reactive) Lymph 1 % (0-2); Band 2 % (0-2.0); Immature Granulocyte 4 (0-1); Lymphocyte 11 % (20-51); Monocyte 10 % (0-9); Neutrophil 72 % (42-75); Neutrophil # 15.2 K/mm3 (1.3-6.0); Platelet Estimate Normal (NORMAL)
[2018-08-05 19:48] LABS: Anisocytosis 1+; Hypochromia 1+
[2018-08-05 19:49] LABS: Dohle Bodies Trace; Microcytosis 1+
[2018-08-06] MEDS ORDERED: FUROSEMIDE 10 MG/ML VIAL IV ONE ×2 (04:59→07:30)
[2018-08-06 05:27] LABS: INR 1.46 INR (0.92-1.08); Prothrombin Time (Patient) 14.2 Seconds (9.1-10.7)
[2018-08-06 07:06] LABS: Mean Cell Volume 90.9 fl (78-100); Mean Corpuscular Hemoglobin 29.6 pg (27-31); Mean Corpuscular Hgb Conc 32.5 g/dl (32-36); NRBC# 0.1 k/mm3 (0-1); Neutrophil # 7.2 K/mm3 (1.3-6.0); Neutrophil % 66.2 % (42-75.0); Platelet Count 170 K/mm3 (150-450); Red Cell Distribution Width 14.2 % (11.5-14.0); White Blood Count 10.9 K/mm3 (4.0-10.5)
[2018-08-06 07:13] LABS: Hemoglobin 6.8 gm/dL (12.5-16.0)
[2018-08-06 07:14] LABS: Hematocrit 20.9 % (37.0-47.0)
[2018-08-06 07:23] LABS: Anion Gap 12.8 mmol/L (6.8-13.8); BNP * 3679 pg/mL (5-550); BUN/Creatinine Ratio 37.3 (9.0-21.6); Blood Urea Nitrogen 53 mg/dL (3-23); Calcium * 8.3 mg/dL (7.9-10.9); Chloride 104 mmol/L (97-106); Estimated Creat Clear 23.6; Glucose * 99 mg/dL (70-110); Potassium 3.8 mmol/L (3.4-4.6); Sodium 139 mmol/L (132-142); Troponin I Less than 0.017 ng/mL (0.00-0.10)
[2018-08-06] MEDS: LEVOTHYROXINE SODIUM 100 MCG TABLET PO SCH (07:52)
[2018-08-06] MEDS ORDERED: PHYTONADIONE (VIT K1) 5 MG TABLET PO ONE (08:00)
--- NOTE | 2018-08-06 08:27 | PN ---
Progess Note - Interim Date: 08/06/18 Time: 08:20 Narrative: 08/06/18 08:20 Patient persistently continued to have low blood pressure despite IVF boluses. repeat CBC showed Hb went down to 7.3 . 2 units of PRBC ordered. She already has 4 untis of FFP ordered. early this morning , her CXr shows pulmonary congestion after receiving 1 unit of PRBS and 2 units of FFP. . Her EKG showed Afib, troponion was less than 0.017. Low BP still likely due to hypovolemia. considering that abscess is actually a hematoma or an infected hematoma. will talk to radiology. stool for occult blood ordered. 2nd unit of PRBC started back after repeat H/H showed Hb at 6.8. Lasix given . Vit K 5 mg PO x 1 given . remaining 2 units of FFP to follow after Lasix . will restart her IV Abx. will try talking to [facility] again when VS are more stable. 08/06/18 09:59 Talked to Radiology- his impression 1st will be a hematoma or infected hematoma over abscess. 08/06/18 11:[address] Santoyo- he does not have the imaging studies. He will call us back but at the moment they do not have bed available.
[2018-08-06] MEDS: METOPROLOL TARTRATE 25 MG TABLET PO SCH ×2 (08:33→16:05)
[2018-08-06] MEDS: oxyCODONE HCL/ACETAMINOPHEN 1 TAB TABLET PO PRN (08:45)
[2018-08-06] MEDS: POTASSIUM CHLORIDE 20 MEQ TABLET.SA PO SCH (08:46)
[2018-08-06] MEDS: CHOLECALCIFEROL 1,000 UNIT CAPSULE PO SCH (08:46)
[2018-08-06] MEDS: CITALOPRAM HYDROBROMIDE 20 MG TABLET PO SCH (08:47)
[2018-08-06] MEDS ORDERED: FUROSEMIDE 10 MG/ML VIAL IV PRN (12:00)
[2018-08-06] MEDS ORDERED: CHLORHEX GL/ISOPROPYL ALCOHOL 960 APPL BTL TP SCH ×2 (15:15→15:30)
--- NOTE | 2018-08-06 16:31 | DS ---
Transfer Discharge Summary - Diagnosis(s)/Problems (1) Abscess Narrative: vs hematoma/infected hematoma. IV antibiotics and s/p 4 untis of FFP Problem: Acute (2) Cellulitis of hip, left Problem: Acute (3) Hypotension Narrative: due to Hypovolemia. Sepsis /cardiogenic ruled out. BP now in the low 100's after 2 units pf PRBC. likely due to IM bleed into thigh . FFP and Vit K given. Problem: Acute (4) UTI (urinary tract infection) Problem: Acute (5) Acute kidney insufficiency Problem: Acute (6) Leg ulcer, left Problem: Chronic (7) Low back pain Problem: Acute (8) Osteoarthritis Problem: Chronic (9) History of total knee arthroplasty Problem: Resolved (10) Obesity Problem: Chronic (11) Hypothyroidism Problem: Chronic (12) Hypertension Problem: Chronic (13) Hyperlipidemia Problem: Chronic (14) Atrial fibrillation Problem: Chronic (15) Anemia Narrative: last Hb in 06/2018 was 9.1 from left leg hematoma. Hb on admission was 9 then went down to 7.3 and then 6.8. s/p BT x 2 units. Problem: Chronic - Course Description of Stay: Maggie Patel is an 88-year-old white female with past medical history of diabetes mellitus type 2, hypertension, hyperlipidemia, chronic atrial fibrillation, osteoarthritis, status post right total knee arthroplasty, who was admitted on 08/04/2018 because of severe left groin and hip pain. She also complained of low back pain that goes to the front and back over her thigh but does not extend distal to her left knee . She denies any history of recent trauma or fall, fever or chills. The pain started 2 days prior to admission. She went to the emergency room in [place] 1 day [employer] where they had x-rays done of her pelvis and femur. It did not show any acute osseous findings. 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 They gave her hydrocodone and prednisone and discharged her. She was told that she had a pulled muscle. On the morning of admission they called the ambulance for lift assistance to bring her to [facility]. Upon lifting her she got weak, dizzy, diaphoretic and felt cold. As per EMS her radial pulse could not be felt. Her blood pressure was 98/50 and so they laid her down. She was then transferred to our emergency room by ambulance. In the ED, lumbosacral x-ray done showed multilevel degenerative disc disease with facet osteoarthropathy. She rated her pain as 10 over 10 and was not able to ambulate in the emergency room even with assistance.. She was then admitted for observation and for pain control. She follows up with our Wound clinic for a chronic ulcer on her left leg and was just recently on Wound vac and cephalosporin antibiotic. Her INR in [place] yesterday was 2.1 as per her daughter and therefore unlikely DVT. Her WBC came back elevated and UA showed UTI. She was started on IV Rocephin and septic work up was initiated. Her tib- fib xray did not show acute osseous findings to suggest OM. Her BC/UCS are pending. Her MRI showed an abscess of her adductor blade and cellulitis of her left hip. Orthopedic was consulted and they stopped her antibiotics as they wanted to have culture of the abscess but they felt the area was dangerous area structurally. They recommended transfer to a higher institution. Her Coumadin was stopped and Vit k x 1 was given. Her BP have been on the low side and her torsemide and metoprolol ( she got them this morning) were stopped. She had been not taking too much fluid as she was afraid to put weight her left hip if she needs to go to the bathroom for the last few days. She got IV saline boluses. Discussed with [facility]- Dr. Hammond and they accepted the patient. She received another liter of IVF and the MRI images sent to them. Javier catheter insertion was inserted. . The patient is a full code and I explained to her the risks and benefits of anticipated surgery. She is willing to go ahead. After reviewing the images sent to [facility] they backed down from their acceptance. We called [facility] and awaiting for their response. In the meantime she received 2 units of PRBS and 4 units of FFP, another Vit K. Her BP has stabilized now in the low 100's. Her lactic acid was normal and her troponin was normal. Discussed MRI with the radiologist of today and he would have called this hematoma more than abscess, of course it could also be an infected hematoma. Her WBC is down to 10.9 from 21 from 24. IV antibitoics was restarted. Discussed with Dr. Santoyo and he will look at the images and call us back. ADDENDUM: Still no bed available. Consultation Done:: Orthopedics Procedures Performed: none - Results and Findings Results and Findings: Laboratory Results - last 24 hr 08/05/18 08/05/18 08/05/18 18:45 18:45 19:00 WBC 21.1 H RBC 2.45 L Hgb 7.3 L* Hct 22.4 L* MCV 91.4 MCH 29.8 MCHC 32.6 RDW 13.7 Plt Count 220 MPV 9.8 Immature Gran % (Auto) Immature Gran # (Auto) Neutrophils % Neutrophils % (Manual) 72 Band Neuts % (Manual) 2 Lymphocytes % Lymphocytes % (Manual) 11 L Monocytes % Monocytes % (Manual) 10 H Eosinophils % Basophils % Nucleated RBC % Immature Granulocytes 4 H Neutrophils # Neutrophils # (Manual) 15.2 H Lymphocytes # Lymphocytes # (Manual) 2.3 Monocytes # Monocytes # (Manual) 2.1 H Eosinophils # Absolute Basophils Atypic/Reactive Lymphs 1 Dohle Bodies Trace Platelet Estimate Normal Hypochromasia 1+ Anisocytosis 1+ Microcytosis 1+ PT INR (Anticoag Therapy) Sodium 132 Plasma Sodium 132 Potassium 4.9 H Chloride 99 Carbon Dioxide 23.8 L Anion Gap 14.1 H BUN 60 H Creatinine 1.76 H Est GFR (Non-Af Amer) 29 L BUN/Creatinine Ratio 34.1 H Random Glucose 119 H Lactic Acid, Venous Calcium 8.3 Troponin I B-Natriuretic Peptide Blood Type A Positive Antibody Screen Negative Crossmatch See Detail 08/06/18 08/06/18 08/06/18 05:00 06:52 06:52 WBC 10.9 H D RBC 2.30 L Hgb 6.8 L* Hct 20.9 L* MCV 90.9 MCH 29.6 MCHC 32.5 RDW 14.2 H Plt Count 170 MPV 10.0 Immature Gran % (Auto) 2.80 H Immature Gran # (Auto) 0.31 H Neutrophils % 66.2 Neutrophils % (Manual) Band Neuts % (Manual) Lymphocytes % 16.5 L Lymphocytes % (Manual) Monocytes % 12.8 H Monocytes % (Manual) Eosinophils % 1.4 Basophils % 0.3 Nucleated RBC % 0.1 Immature Granulocytes Neutrophils # 7.2 H Neutrophils # (Manual) Lymphocytes # 1.80 Lymphocytes # (Manual) Monocytes # 1.4 H Monocytes # (Manual) Eosinophils # 0.2 Absolute Basophils 0.0 Atypic/Reactive Lymphs Dohle Bodies Platelet Estimate Hypochromasia Anisocytosis Microcytosis PT 14.2 H INR (Anticoag Therapy) 1.46 H Sodium 139 Plasma Sodium 139 Potassium 3.8 D Chloride 104 Carbon Dioxide 26.0 Anion Gap 12.8 BUN 53 H Creatinine 1.42 H Est GFR (Non-Af Amer) 37 L D BUN/Creatinine Ratio 37.3 H Random Glucose 99 Lactic Acid, Venous Calcium 8.3 Troponin I Less than 0.017 B-Natriuretic Peptide 3679 H Blood Type Antibody Screen Crossmatch 08/06/18 12:10 WBC RBC Hgb Hct MCV MCH MCHC RDW Plt Count MPV Immature Gran % (Auto) Immature Gran # (Auto) Neutrophils % Neutrophils % (Manual) Band Neuts % (Manual) Lymphocytes % Lymphocytes % (Manual) Monocytes % Monocytes % (Manual) Eosinophils % Basophils % Nucleated RBC % Immature Granulocytes Neutrophils # Neutrophils # (Manual) Lymphocytes # Lymphocytes # (Manual) Monocytes # Monocytes # (Manual) Eosinophils # Absolute Basophils Atypic/Reactive Lymphs Dohle Bodies Platelet Estimate Hypochromasia Anisocytosis Microcytosis PT INR (Anticoag Therapy) Sodium Plasma Sodium Potassium Chloride Carbon Dioxide Anion Gap BUN Creatinine Est GFR (Non-Af Amer) BUN/Creatinine Ratio Random Glucose Lactic Acid, Venous 1.3 Calcium Troponin I B-Natriuretic Peptide Blood Type Antibody Screen Crossmatch - Medications Medications: Active Medications Chlorhexidine Gluconate (Hibiclens 4%) 1 appl TP Q3D@0900 [facility] Stop: 09/05/18 15:31 Last Admin: 08/06/18 16:08 Dose: 1 appl Documented by: Cholecalciferol (Vitamin D) 1,000 unit PO DAILY [facility] Stop: 09/04/18 09:01 Last Admin: 08/06/18 08:46 Dose: 1,000 unit Documented by: Citalopram Hydrobromide (Celexa) 20 mg PO DAILY [facility] Stop: 09/04/18 09:01 Last Admin: 08/06/18 08:47 Dose: 20 mg Documented by: Furosemide (Lasix) 10 mg IV ONCE PRN PRN Reason: GIVE AFTER PRBC & PRIOR TO FFP Stop: 08/06/18 23:59 Last Admin: 08/06/18 11:10 Dose: 10 mg Documented by: Hydromorphone HCl (Dilaudid) 1 mg IV Q4H PRN PRN Reason: Severe Pain (pain scale 7-10) Stop: 09/03/18 17:44 Last Admin: 08/05/18 11:15 Dose: 1 mg Documented by: Sodium Chloride (Sodium Chloride 0.9%) 1,000 mls @ 125 mls/hr IV .Q8H PRN PRN Reason: HYDRATION Stop: 09/04/18 08:02 Last Admin: 08/05/18 18:43 Dose: 125 mls/hr Documented by: Ceftriaxone Sodium 2,000 mg/ (Dextrose/Water) 100 mls @ 200 mls/hr IV Q24H [facility] Stop: 09/05/18 09:01 Last Infusion: 08/06/18 09:51 Dose: Infused Documented by: Levothyroxine Sodium (Synthroid) 100 mcg PO DAILY@0700 [facility] Stop: 09/04/18 07:01 Last Admin: 08/06/18 07:52 Dose: 100 mcg Documented by: Metoprolol Tartrate (Lopressor) 75 mg PO BIDWM [facility] Stop: 09/03/18 20:01 Last Admin: 08/06/18 16:05 Dose: Not Given Documented by: Oxycodone/Acetaminophen (Percocet 5 Mg/325 Mg) 1 tab PO Q4H PRN PRN Reason: Moderate Pain (pain scale 4-6) Stop: 09/03/18 18:03 Last Admin: 08/06/18 08:45 Dose: 1 tab Documented by: Potassium Chloride (K-Dur) 20 meq PO DAILY [facility] Stop: 09/04/18 09:01 Last Admin: 08/06/18 08:46 Dose: 20 meq Documented by: Torsemide (Demadex) 20 mg PO DAILY [facility] Stop: 09/04/18 09:01 Last Admin: 08/05/18 08:48 Dose: 20 mg Documented by: Discontinued Medications Alprazolam (Xanax) 0.25 mg PO ONCE ONE Stop: 08/05/18 16:51 Last Admin: 08/05/18 16:45 Dose: 0.25 mg Documented by: Chlorhexidine Gluconate (Hibiclens 4%) 1 appl TP DAILY [facility] Stop: 09/05/18 15:16 Last Admin: 08/06/18 16:09 Dose: Not Given Documented by: Diphenhydramine HCl (Benadryl) 25 mg IM ONCE ONE Stop: 08/04/18 11:44 Last Admin: 08/04/18 11:56 Dose: 25 mg Documented by: Furosemide (Lasix) 20 mg IV ONCE ONE Stop: 08/06/18 05:00 Last Admin: 08/06/18 05:38 Dose: Not Given Documented by: Furosemide (Lasix) 10 mg IV ONCE ONE Stop: 08/06/18 07:31 Last Admin: 08/06/18 07:55 Dose: 10 mg Documented by: Ceftriaxone Sodium 1,000 mg/ (Dextrose/Water) 100 mls @ 200 mls/hr IV Q24H [facility] Stop: 09/04/18 08:31 Last Infusion: 08/05/18 10:23 Dose: Infused Documented by: Sodium Chloride (Sodium Chloride 0.9%) 500 mls @ 999 mls/hr IV .Q31M ONE Stop: 08/05/18 15:20 Last Infusion: 08/05/18 15:32 Dose: Infused Documented by: Sodium Chloride (Sodium Chloride 0.9%) 500 mls @ 999 mls/hr IV .Q31M ONE Stop: 08/05/18 16:56 Last Admin: 08/05/18 16:31 Dose: 999 mls/hr Documented by: Sodium Chloride (Sodium Chloride 0.9%) 1,000 mls @ 999 mls/hr IV .Q1H1M ONE Stop: 08/05/18 18:54 Last Admin: 08/05/18 18:03 Dose: Not Given Documented by: Sodium Chloride (Sodium Chloride 0.9%) 500 mls @ 999 mls/hr IV .Q31M ONE Stop: 08/05/18 18:31 Last Admin: 08/05/18 18:02 Dose: 999 mls/hr Documented by: Morphine Sulfate (Morphine Sulfate) 8 mg IM ONCE ONE Stop: 08/04/18 11:44 Last Admin: 08/04/18 11:55 Dose: 8 mg Documented by: Ondansetron HCl (Zofran Odt) 8 mg PO ONCE ONE Stop: 08/04/18 16:07 Last Admin: 08/04/18 16:13 Dose: 8 mg Documented by: Orphenadrine Citrate (Norflex) 60 mg IM ONCE ONE Stop: 08/04/18 11:44 Last Admin: 08/04/18 11:59 Dose: 60 mg Documented by: Phytonadione (Vitamin K) 5 mg PO ONCE ONE Stop: 08/05/18 16:58 Last Admin: 08/05/18 17:12 Dose: 5 mg Documented by: Phytonadione (Vitamin K) 5 mg PO ONCE ONE Stop: 08/06/18 08:01 Last Admin: 08/06/18 08:48 Dose: 5 mg Documented by: Warfarin Sodium (Coumadin) 3 mg PO DAILY@1700 [facility] Stop: 09/03/18 20:01 Last Admin: 08/04/18 19:39 Dose: 3 mg Documented by: - Disposition Disposition: Short Term Hospital Inpatient Condition: Stable Discharge Date: 08/06/18
[2018-08-06] MEDS: NORMAL SALINE 1,000 ML IV PRN (17:35)
[2018-08-07 05:36] LABS: INR 1.13 INR (0.92-1.08); Prothrombin Time (Patient) 11.1 Seconds (9.1-10.7)
[2018-08-07 05:49] LABS: Hematocrit 25.2 % (37.0-47.0); Mean Cell Volume 90.3 fl (78-100); Mean Corpuscular Hemoglobin 28.3 pg (27-31); Mean Corpuscular Hgb Conc 31.3 g/dl (32-36); Mean Platelet Volume 9.5 fl (8-12.5); NRBC# 0.2 k/mm3 (0-1); Neutrophil # 6.7 K/mm3 (1.3-6.0); Neutrophil % 65.5 % (42-75.0); Platelet Count 168 K/mm3 (150-450); Red Blood Count 2.79 M/mm3 (4.2-5.4); Red Cell Distribution Width 16.4 % (11.5-14.0); White Blood Count 10.3 K/mm3 (4.0-10.5)
[2018-08-07 05:58] LABS: Hemoglobin 7.9 gm/dL (12.5-16.0)
[2018-08-07 05:59] LABS: Anion Gap 13.9 mmol/L (6.8-13.8); BUN/Creatinine Ratio 32.2 (9.0-21.6); Calcium * 8.1 mg/dL (7.9-10.9); Carbon Dioxide 27.7 mmol/L (24-32.6); Estimated Creat Clear 29.2; Potassium 3.6 mmol/L (3.4-4.6)
[2018-08-07] MEDS: oxyCODONE HCL/ACETAMINOPHEN 1 TAB TABLET PO PRN (07:37)
[2018-08-07] MEDS: LEVOTHYROXINE SODIUM 100 MCG TABLET PO SCH (07:37)
--- NOTE | 2018-08-07 08:38 | PN ---
Princess Note - Interim Date: 08/07/18 Time: 08:27 Narrative: 08/07/18 08:27 She became hypotensive due to hypovolemia. Patient BP has stabilized with BT and IVF.. Hb is 7.9. Will give another unit today as her HR is in the upper 90's and I would hate for her Chronic Afib to go into RVR and I am not able to control her rate with BBlocker or CCB due to low BP. Her ARF resolved with IVF and BT. Her WBC is back to normal. Review of the MRI by another radiologist agrees that is more of hematoma ( but cannot rle out infected hematoma) than abscess to him , Her INR now is 1.18. Her pain is still 10/10 with any movement. If this is abscess may need to drained or if hematoma may need to be evacuated as it is likely causing compression symptoms. 08/07/18 08:38 Her UTI is growing Proteus Mirabilis sensitive to the IV Rocephin.
[2018-08-07] MEDS: POTASSIUM CHLORIDE 20 MEQ TABLET.SA PO SCH (08:44)
[2018-08-07] MEDS: CITALOPRAM HYDROBROMIDE 20 MG TABLET PO SCH (08:44)
[2018-08-07] MEDS: CHOLECALCIFEROL 1,000 UNIT CAPSULE PO SCH (08:45)
[2018-08-07] MEDS ORDERED: METOPROLOL TARTRATE 25 MG TABLET PO SCH (09:00)
[2018-08-07] MEDS: TORSEMIDE 20 MG TABLET PO SCH (10:45)
--- NOTE | 2018-08-07 11:48 | DS ---
Transfer Discharge Summary - Diagnosis(s)/Problems (1) Abscess Narrative: vs hematoma/infected hematoma- adductor blade, left Problem: Acute (2) Cellulitis of hip, left Narrative: cellulitis of subcutaneous soft tissue around left hip per MRI. Problem: Acute (3) Hypotension Narrative: due to hypovolemia. Problem: Resolved (4) UTI (urinary tract infection) Narrative: Proteus Mirabilis Problem: Acute (5) Acute kidney insufficiency Narrative: Cr from a high of 1.77 to 1.14. Problem: Resolved (6) Leg ulcer, left Problem: Chronic (7) Low back pain Problem: Acute (8) Osteoarthritis Problem: Chronic (9) History of total knee arthroplasty Problem: Resolved (10) Obesity Problem: Chronic (11) Hypothyroidism Problem: Chronic (12) Hypertension Problem: Chronic (13) Hyperlipidemia Problem: Chronic (14) Atrial fibrillation Problem: Chronic (15) Anemia Narrative: acute on chronic. Problem: Chronic - Course Description of Stay: Maggie Patel is an 88-year-old white female with past medical history of diabetes mellitus type 2, hypertension, hyperlipidemia, chronic atrial fibrillation, osteoarthritis, status post right total knee arthroplasty, who was admitted on 08/04/2018 because of severe left groin and hip pain. She also complained of low back pain that goes to the front and back over her thigh but does not extend distal to her left knee . She denies any history of recent trauma or fall, fever or chills. The pain started 2 days prior to admission. She went to the emergency room in [place] 1 day [employer] where they had x-rays done of her pelvis and femur. It did not show any acute osseous findings. 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 They gave her hydrocodone and prednisone and discharged her. She was told that she had a pulled muscle. On the morning of admission they called the ambulance for lift assistance to bring her to [facility]. Upon lifting her she got weak, dizzy, diaphoretic and felt cold. As per EMS her radial pulse could not be felt. Her blood pressure was 98/50 and so they laid her down. She was then transferred to our emergency room by ambulance. In the ED, lumbosacral x-ray done showed multilevel degenerative disc disease with facet osteoarthropathy. She rated her pain as 10 over 10 and was not able to ambulate in the emergency room even with assistance.. She was then admitted for observation and for pain control. She follows up with our Wound clinic for a chronic ulcer on her left leg and was just recently on Wound vac and cephalosporin antibiotic. Her INR in [place] yesterday was 2.1 as per her daughter and therefore unlikely DVT. Her WBC came back elevated and UA showed UTI. She was started on IV Rocephin and septic work up was initiated. Her tib- fib xray did not show acute osseous findings to suggest OM. Her BC/UCS are pending. Her MRI showed an abscess of her adductor blade and cellulitis of her left hip. Orthopedic was consulted and they stopped her antibiotics as they wanted to have culture of the abscess but they felt the area was dangerous area structurally. They recommended transfer to a higher institution. Her Coumadin was stopped and Vit k x 1 was given. Her BP have been on the low side and her torsemide and metoprolol ( she got them this morning) were stopped. She had been not taking too much fluid as she was afraid to put weight her left hip if she needs to go to the bathroom for the last few days. She got IV saline boluses. Discussed with [facility]- Dr. Hammond and they accepted the patient. She received another liter of IVF and the MRI images sent to them. Javier catheter insertion was inserted. . The patient is a full code and I explained to her the risks and benefits of anticipated surgery. She is willing to go ahead. After reviewing the images sent to [facility] they backed down from their acceptance. We called [facility] and awaiting for their response. In the meantime she received 2 units of PRBS and 4 units of FFP, another Vit K. Her lactic acid was normal and her troponin was normal. Discussed MRI with the radiologist of today and he would have called this hematoma more than abscess, of course it could also be an infected hematoma. Her WBC is down to 10.9 from 21 from 24. IV antibitoics was restarted. Discussed with Dr. Santoyo but still no bed available. Hospital course: She became hypotensive due to hypovolemia on 08/06/2018. Patient BP has stabilized with 2 units of BT and IVF. Hb on admission was 9 and dropped to 6.8 ( her last Hb was in 06/2018 and it was 9.1 after she had a large hematoma of her leg from a fall/has been following up with Wound clinic since then for a chronic ulcer that resulted from it). Hb is 7.9 this morning. Will give another unit today as her HR is in the upper 90's and I would hate for her Chronic Afib to go into RVR and I am not able to control her rate with BBlocker or CCB due to low BP. Her ARF resolved with IVF and BT. Her WBC is back to normal. Review of the MRI by another radiologist agrees that this is more of a hematoma ( but cannot rule out infected hematoma) than abscess to him . Her INR now is 1.18. Her pain is still 10/10 with any movement. If this is abscess may need to drained or if hematoma may need to be evacuated as it is likely causing compression symptoms. Her UTI is growing Proteus Mirabilis sensitive to the IV Rocephin. Dr. Naylor and Dr. Baltazar have accepted the patient. Consultation Done:: Orthopedics Procedures Performed: none - Results and Findings Results and Findings: Laboratory Results - last 24 hr 08/05/18 08/06/18 08/07/18 19:00 12:10 05:25 WBC RBC Hgb Hct MCV MCH MCHC RDW Plt Count MPV Immature Gran % (Auto) Immature Gran # (Auto) Neutrophils % Lymphocytes % Monocytes % Eosinophils % Basophils % Nucleated RBC % Neutrophils # Lymphocytes # Monocytes # Eosinophils # Absolute Basophils PT 11.1 H INR (Anticoag Therapy) 1.13 H Sodium Plasma Sodium Potassium Chloride Carbon Dioxide Anion Gap BUN Creatinine Est GFR (Non-Af Amer) BUN/Creatinine Ratio Random Glucose Lactic Acid, Venous 1.3 Calcium Blood Type A Positive Antibody Screen Negative Crossmatch See Detail 08/07/18 08/07/18 05:30 05:30 WBC 10.3 RBC 2.79 L Hgb 7.9 L* Hct 25.2 L MCV 90.3 MCH 28.3 MCHC 31.3 L RDW 16.4 H Plt Count 168 MPV 9.5 Immature Gran % (Auto) 2.90 H Immature Gran # (Auto) 0.30 H Neutrophils % 65.5 Lymphocytes % 17.1 L Monocytes % 11.3 H Eosinophils % 3.0 Basophils % 0.2 Nucleated RBC % 0.2 Neutrophils # 6.7 H Lymphocytes # 1.76 Monocytes # 1.2 H Eosinophils # 0.3 Absolute Basophils 0.0 PT INR (Anticoag Therapy) Sodium 144 H Plasma Sodium 144 H Potassium 3.6 Chloride 106 Carbon Dioxide 27.7 Anion Gap 13.9 H BUN 37 H Creatinine 1.15 Est GFR (Non-Af Amer) 47 L D BUN/Creatinine Ratio 32.2 H Random Glucose 113 H Lactic Acid, Venous Calcium 8.1 Blood Type Antibody Screen Crossmatch - Medications Medications: Active Medications Chlorhexidine Gluconate (Hibiclens 4%) 1 appl TP Q3D@0900 [facility] Stop: 09/05/18 15:31 Last Admin: 08/06/18 16:08 Dose: 1 appl Documented by: Cholecalciferol (Vitamin D) 1,000 unit PO DAILY [facility] Stop: 09/04/18 09:01 Last Admin: 08/07/18 08:45 Dose: 1,000 unit Documented by: Citalopram Hydrobromide (Celexa) 20 mg PO DAILY [facility] Stop: 09/04/18 09:01 Last Admin: 08/07/18 08:44 Dose: 20 mg Documented by: Hydromorphone HCl (Dilaudid) 1 mg IV Q4H PRN PRN Reason: Severe Pain (pain scale 7-10) Stop: 09/03/18 17:44 Last Admin: 08/05/18 11:15 Dose: 1 mg Documented by: Ceftriaxone Sodium 2,000 mg/ (Dextrose/Water) 100 mls @ 200 mls/hr IV Q24H [facility] Stop: 09/05/18 09:01 Last Infusion: 08/07/18 09:15 Dose: Infused Documented by: Levothyroxine Sodium (Synthroid) 100 mcg PO DAILY@0700 [facility] Stop: 09/04/18 07:01 Last Admin: 08/07/18 07:37 Dose: 100 mcg Documented by: Metoprolol Tartrate (Lopressor) 50 mg PO BIDWM [facility] Stop: 09/06/18 09:01 Last Admin: 08/07/18 08:48 Dose: 50 mg Documented by: Oxycodone/Acetaminophen (Percocet 5 Mg/325 Mg) 1 tab PO Q4H PRN PRN Reason: Moderate Pain (pain scale 4-6) Stop: 09/03/18 18:03 Last Admin: 08/07/18 07:37 Dose: 1 tab Documented by: Potassium Chloride (K-Dur) 20 meq PO DAILY [facility] Stop: 09/04/18 09:01 Last Admin: 08/07/18 08:44 Dose: 20 meq Documented by: Torsemide (Demadex) 20 mg PO DAILY [facility] Stop: 09/04/18 09:01 Last Admin: 08/07/18 10:45 Dose: 20 mg Documented by: Discontinued Medications Alprazolam (Xanax) 0.25 mg PO ONCE ONE Stop: 08/05/18 16:51 Last Admin: 08/05/18 16:45 Dose: 0.25 mg Documented by: Chlorhexidine Gluconate (Hibiclens 4%) 1 appl TP DAILY [facility] Stop: 09/05/18 15:16 Last Admin: 08/06/18 16:09 Dose: Not Given Documented by: Diphenhydramine HCl (Benadryl) 25 mg IM ONCE ONE Stop: 08/04/18 11:44 Last Admin: 08/04/18 11:56 Dose: 25 mg Documented by: Furosemide (Lasix) 20 mg IV ONCE ONE Stop: 08/06/18 05:00 Last Admin: 08/06/18 05:38 Dose: Not Given Documented by: Furosemide (Lasix) 10 mg IV ONCE ONE Stop: 08/06/18 07:31 Last Admin: 08/06/18 07:55 Dose: 10 mg Documented by: Furosemide (Lasix) 10 mg IV ONCE PRN PRN Reason: GIVE AFTER PRBC & PRIOR TO FFP Stop: 08/06/18 23:59 Last Admin: 08/06/18 11:10 Dose: 10 mg Documented by: Sodium Chloride (Sodium Chloride 0.9%) 1,000 mls @ 30 mls/hr IV .Q24H PRN PRN Reason: HYDRATION Stop: 09/04/18 08:02 Last Infusion: 08/07/18 07:37 Dose: Infused Documented by: Ceftriaxone Sodium 1,000 mg/ (Dextrose/Water) 100 mls @ 200 mls/hr IV Q24H [facility] Stop: 09/04/18 08:31 Last Infusion: 08/05/18 10:23 Dose: Infused Documented by: Sodium Chloride (Sodium Chloride 0.9%) 500 mls @ 999 mls/hr IV .Q31M ONE Stop: 08/05/18 15:20 Last Infusion: 08/05/18 15:32 Dose: Infused Documented by: Sodium Chloride (Sodium Chloride 0.9%) 500 mls @ 999 mls/hr IV .Q31M ONE Stop: 08/05/18 16:56 Last Admin: 08/05/18 16:31 Dose: 999 mls/hr Documented by: Sodium Chloride (Sodium Chloride 0.9%) 1,000 mls @ 999 mls/hr IV .Q1H1M ONE Stop: 08/05/18 18:54 Last Admin: 08/05/18 18:03 Dose: Not Given Documented by: Sodium Chloride (Sodium Chloride 0.9%) 500 mls @ 999 mls/hr IV .Q31M ONE Stop: 08/05/18 18:31 Last Admin: 08/05/18 18:02 Dose: 999 mls/hr Documented by: Metoprolol Tartrate (Lopressor) 75 mg PO BIDWM [facility] Stop: 09/03/18 20:01 Last Admin: 08/06/18 16:05 Dose: Not Given Documented by: Morphine Sulfate (Morphine Sulfate) 8 mg IM ONCE ONE Stop: 08/04/18 11:44 Last Admin: 08/04/18 11:55 Dose: 8 mg Documented by: Ondansetron HCl (Zofran Odt) 8 mg PO ONCE ONE Stop: 08/04/18 16:07 Last Admin: 08/04/18 16:13 Dose: 8 mg Documented by: Orphenadrine Citrate (Norflex) 60 mg IM ONCE ONE Stop: 08/04/18 11:44 Last Admin: 08/04/18 11:59 Dose: 60 mg Documented by: Phytonadione (Vitamin K) 5 mg PO ONCE ONE Stop: 08/05/18 16:58 Last Admin: 08/05/18 17:12 Dose: 5 mg Documented by: Phytonadione (Vitamin K) 5 mg PO ONCE ONE Stop: 08/06/18 08:01 Last Admin: 08/06/18 08:48 Dose: 5 mg Documented by: Warfarin Sodium (Coumadin) 3 mg PO DAILY@1700 [facility] Stop: 09/03/18 20:01 Last Admin: 08/04/18 19:39 Dose: 3 mg Documented by: - Disposition Disposition: Short Term Hospital Inpatient Condition: Stable Discharge Date: 08/07/18 Discharge Time: 12:20
[2018-08-07 13:20] VITALS: BP 149/88
== END 2018-08-07 13:10 | disposition short-term general hospital (02) | DRG 558 ==
LOC: MS 11:12 → ER 11:12 → MS 16:50
PROVIDERS: ADMIT Internal Medicine; ATTEND Internal Medicine
DX: L03.116 Cellulitis of left lower limb; Z96.651 Presence of right artificial knee joint; Z68.39 Body mass index [BMI] 39.0-39.9, adult; M79.81 Nontraumatic hematoma of soft tissue; E03.9 Hypothyroidism, unspecified; L97.921 Non-pressure chronic ulcer of unspecified part of left lower leg limited to breakdown of skin; D64.9 Anemia, unspecified; E78.5 Hyperlipidemia, unspecified; N39.0 Urinary tract infection, site not specified; Z79.01 Long term (current) use of anticoagulants; E66.9 Obesity, unspecified; E11.622 Type 2 diabetes mellitus with other skin ulcer; E86.1 Hypovolemia; M60.004 Infective myositis, unspecified left leg; I95.9 Hypotension, unspecified; I10 Essential (primary) hypertension; I48.2 Chronic atrial fibrillation; N17.9 Acute kidney failure, unspecified; B96.89 Other specified bacterial agents as the cause of diseases classified elsewhere
CPT/HCPCS: 36415; 71010; 71045; 72110; 73590; 73723; 80048; 80053; 81001; 83519; 83605; 83880; 84484; 85007; 85025; 85610; 85652; 86140; 86850; 87040; 87070; 87077; 87081; 87086; 87186; 93005; 96361; 96372; 96374; 99284; A9576; G0378; P9016

== ENCOUNTER 2019-12-26 21:09 | Observation (INO) ==
--- NOTE | 2019-12-26 21:21 | ERNOTE ---
<Rama Estevez - Last Filed: 12/26/19 21:41> Lower Extremity HPI - Narrative Date of Service: 12/26/19 - General Lower Extremities Pain: knee: left Time Seen by Provider: 12/26/19 21:09 Source: patient Exam Limitations: no limitations - Immun/Allergies/Home Medications Immunizations: IMMUNIZATION HX Immunizations Up to Date Yes History of Influenza Vaccine More Information Required Hx Pneumococcal Vaccination More Information Required Allergies/Adverse Reactions: Allergies Allergy/AdvReac Type Severity Reaction Status Date / Time iodine Allergy Intermediate Blisters Verified 12/10/19 22:49 ibuprofen AdvReac Intermediate Swelling Verified 12/10/19 22:49 (Other) bupropion HCl AdvReac Mild Other Verified 12/10/19 22:49 [From Wellbutrin] Home Medications: HOME MEDICATIONS warfarin 5 mg tablet 5 mg PO .COMPLEX #30 tab 09/02/18 [Last Taken Unknown] warfarin 3 mg tablet 3 mg PO .COMPLEX #30 tab 01/26/19 [Last Taken Unknown] metoprolol tartrate 75 mg tablet 75 mg PO BID #180 tab 10/20/19 [Last Taken Unknown] prednisone 20 mg tablet 20 mg PO DAILY #7 tab 11/18/19 [Last Taken Unknown] levothyroxine 125 mcg capsule 125 mcg PO DAILY #30 cap 11/25/19 [Last Taken Unknown] acetaminophen 325 mg tablet 650 mg PO Q8H PRN #60 tab 11/30/19 [Last Taken Unknown] cholecalciferol (vitamin D3) 25 mcg (1,000 unit) capsule 1,000 unit PO DAILY #30 cap 11/30/19 [Last Taken Unknown] simvastatin 20 mg tablet 20 mg PO HS #30 tab 11/30/19 [Last Taken Unknown] citalopram 20 mg tablet See Rx Instructions .ROUTE .COMPLEX #30 unknown measurement unit code: tablet 12/08/19 [Last Taken Unknown] potassium chloride 10 mEq tablet,extended release(part/cryst) See Rx Instructions .ROUTE .COMPLEX #30 unknown measurement unit code: tablet 12/08/19 [Last Taken Unknown] oxycodone-acetaminophen 5 mg-325 mg tablet See Rx Instructions PO Q8H PRN #42 tab 12/24/19 [Last Taken Unknown] torsemide 20 mg tablet 60 mg PO DAILY #180 tab 12/24/19 [Last Taken Unknown] - Pain Score Pain Score #1 Pain Score: 4 - History of Present Illness Narrative: The patient is a 89 year old female who presents for left knee pain which has been present since this afternoon. There are associated symptoms of left knee swelling. The patient reports pain to left anterior knee, 4/10 at rest and 10/10 with slight movement or palpation. There are alleviating factors of immobilization. There are aggravating factors of activity or palpation. Previous treatments have included: none. The past medical history includes: anemia, anxiety, osteoarthritis, AFib, depression, DM, HTN, HLD and hypothyroid. The social history is positive for former smoker. The patient has had no known ill contacts. Patient denies known injury. Patient states she was resting in chair and then developed left knee pain. Review of Systems - Review of Systems Constitutional: Present: no symptoms reported. Absent: recent illness, fever, chills, diaphoresis EYE: Present: no symptoms reported ENT: Present: no symptoms reported. Absent: ear pain, nasal drainage, sore throat Respiratory: Present: no symptoms reported. Absent: shortness of breath, cough Cardiology: Present: no symptoms reported. Absent: chest pain Gastrointestinal/Abdominal: Present: nausea. Absent: vomiting, diarrhea, abdominal pain Genitourinary: Present: no symptoms reported. Absent: dysuria, decreased urinary output Musculoskeletal: Present: joint pain, joint swelling Skin: Present: no symptoms reported Neurological: Absent: numbness, tingling All Other Systems: All systems neg except as marked Medical History (Last Reviewed 12/26/19 @ 21:17 by HARMONY Bond) H/O mammogram (Chronic) Onset Date: ~02/04/08 Yearly Screening Sciatica (Chronic) Onset Date: ~2004 Left sided Osteoarthritis (Chronic) Onset Date: Unknown Obesity (Chronic) Onset Date: Unknown Myalgia (Chronic) Onset Date: Unknown Knee pain (Chronic) Onset Date: Unknown Left and Right, acute on chronic left Joint prosthesis infection or inflammation (Chronic) Onset Date: ~2013 right knee Hypothyroidism (Chronic) Onset Date: ~07/2008 Hypertension (Chronic) Onset Date: ~1969 Hyperlipidemia (Chronic) Onset Date: ~09/2006 Encounter for Hemoccult screening (Chronic) Onset Date: ~09/07/07 Negative X 3 Diabetes 1.5, managed as type 2 (Chronic) Onset Date: ~01/2008 Depression (Chronic) Onset Date: Unknown H/O bone density study (Chronic) Onset Date: ~11/22/04 Atrial fibrillation (Chronic) Onset Date: ~09/20/13 Osteoarthritis (Chronic) Onset Date: ~03/10/13 Bilateral knees Arthralgia (Chronic) Onset Date: Unknown Anxiety (Chronic) Onset Date: Unknown Anemia (Chronic) Onset Date: ~01/2008 Surgical History: Surgical History (Last Reviewed 12/26/19 @ 21:17 by HARMONY Bond) History of total knee arthroplasty (Resolved) Onset Date: ~12/07/13 2014 - Dr. Mckeon - Right 2014 - Dr. De Jesus [facility] right revision after infection. H/O bilateral oophorectomy (Resolved) Onset Date: ~1955 History of cholecystectomy (Resolved) Onset Date: ~1986 Cataract (Resolved) Onset Date: Unknown Right 11/2001 and Left 02/2007 History of bladder surgery (Resolved) Onset Date: Unknown ? adhesions and bladder dropped Hx of hysterectomy Family History: Family History (Last Reviewed 12/26/19 @ 21:17 by HARMONY Bond) Father , age 70 Hypertension Myocardial infarction Mother , age 97 Heart disease CHF (congestive heart failure) Broken hip Social History: (Last Reviewed 12/26/19 @ 21:17 by HARMONY Bond) Social History: adopted: No detention: No Marital status: / lives independently: Yes household members: none current occupational status: retired Highest education level completed: 11th grade Service: No Tobacco: Smoking Status: Former smoker Alcohol: alcohol intake: never Substance Use: substance use type: does not use Dietary Habits: caffeine: Yes Type: coffee Physical Exam - Physical Exam General Appearance: Present: wd/wn, alert, moderate distress Head Exam: Present: normal inspection Eye Exam: Normal inspection: bilateral Neck: Present: normal inspection Respiratory: Present: no respiratory distress, normal breath sounds, no accessory muscle use, lungs clear Cardiovascular/Chest: Present: regular rate, rhythm Peripheral Pulses: N=norm/S=strong/W=weak/B=bound/A=absent: Dorsalis-pedis (L): Weak - 3+ pitting edema Gastrointestinal/Abdominal: Present: normal bowel sounds, nontender, nondistended, soft, no organomegaly Extremity Exam: Present: decreased range of motion - inability to determine ROM due to pain, bony tenderness - anterior patella, medial and lateral knee, joint swelling, other - mild warmth overlying left knee. Absent: joint redness Neurological Exam: Present: alert, oriented, normal mood/affect, no motor/sensory deficits Skin Exam: Present: normal color, warm/dry, other - previously healed surgical incision scar noted to left medial calf from previous abscess Progress - Vital Signs Patient's Vital Signs:: I have reviewed the patient's vital signs. - Transfer of Care Physician Sign Out: Rama Estevez Receiving Physician: Isaiah Cardoza Pending Results: Labs, X-ray results Expected Disposition: Discharge Departure Clinical Impression: Arthritis Knee pain, left Qualifiers: Chronicity: acute Qualified Code(s): M25.562 - Pain in left knee Elevated WBC count Qualifiers: Leukocytosis type: unspecified Qualified Code(s): D72.829 - Elevated white blood cell count, unspecified - Departure Disposition: Still a patient Condition: Good <Isaiah Cardoza - Last Filed: 12/27/19 03:13> Lower Extremity HPI - Immun/Allergies/Home Medications Immunizations: IMMUNIZATION HX Immunizations Up to Date Yes History of Influenza Vaccine More Information Required Hx Pneumococcal Vaccination More Information Required Medical History (Last Reviewed 12/26/19 @ 21:17 by HARMONY Bond) H/O mammogram (Chronic) Onset Date: ~02/04/08 Yearly Screening Sciatica (Chronic) Onset Date: ~2004 Left sided Osteoarthritis (Chronic) Onset Date: Unknown Obesity (Chronic) Onset Date: Unknown Myalgia (Chronic) Onset Date: Unknown Knee pain (Chronic) Onset Date: Unknown Left and Right, acute on chronic left Joint prosthesis infection or inflammation (Chronic) Onset Date: ~2013 right knee Hypothyroidism (Chronic) Onset Date: ~07/2008 Hypertension (Chronic) Onset Date: ~1969 Hyperlipidemia (Chronic) Onset Date: ~09/2006 Encounter for Hemoccult screening (Chronic) Onset Date: ~09/07/07 Negative X 3 Diabetes 1.5, managed as type 2 (Chronic) Onset Date: ~01/2008 Depression (Chronic) Onset Date: Unknown H/O bone density study (Chronic) Onset Date: ~11/22/04 Atrial fibrillation (Chronic) Onset Date: ~09/20/13 Osteoarthritis (Chronic) Onset Date: ~03/10/13 Bilateral knees Arthralgia (Chronic) Onset Date: Unknown Anxiety (Chronic) Onset Date: Unknown Anemia (Chronic) Onset Date: ~01/2008 Surgical History: Surgical History (Last Reviewed 12/26/19 @ 21:17 by HARMONY Bond) History of total knee arthroplasty (Resolved) Onset Date: ~12/07/13 2014 - Dr. Mckeon - Right 2015 - Dr. De Jesus [facility] right revision after infection. H/O bilateral oophorectomy (Resolved) Onset Date: ~1955 History of cholecystectomy (Resolved) Onset Date: ~1986 Cataract (Resolved) Onset Date: Unknown Right 11/2001 and Left 02/2007 History of bladder surgery (Resolved) Onset Date: Unknown ? adhesions and bladder dropped Hx of hysterectomy Family History: Family History (Last Reviewed 12/26/19 @ 21:17 by HARMONY Bond) Father , age 70 Hypertension Myocardial infarction Mother , age 97 Heart disease CHF (congestive heart failure) Broken hip Social History: (Last Reviewed 12/26/19 @ 21:17 by HARMONY Bond) Social History: adopted: No detention: No Marital status: / lives independently: Yes household members: none current occupational status: retired Highest education level completed: 11th grade Service: No Tobacco: Smoking Status: Former smoker Alcohol: alcohol intake: never Substance Use: substance use type: does not use Dietary Habits: caffeine: Yes Type: coffee Physical Exam - Physical Exam Extremity Exam: Present: decreased range of motion, bony tenderness, joint redness, extremity edema, other - homans sign negative on the left. Neurological Exam: Present: alert, oriented, normal mood/affect Skin Exam: Present: normal color, warm/dry, other - previously healed surgical incision scar noted to left medial calf from previous abscess in good condition Progress - Results and Orders Patient's Lab Results:: I have reviewed the patient's lab results. - Vital Signs Vital Signs: Vital Signs 12/26/19 21:09 12/26/19 21:39 12/26/19 21:53 Temperature 36.4 C Pulse Rate 84 81 75 Respiratory Rate 17 19 15 Blood Pressure 144/113 H 161/87 H 173/77 H O2 Sat by Pulse Oximetry 95 97 94 12/26/19 22:08 12/26/19 22:23 Temperature Pulse Rate 77 76 Respiratory Rate 23 H 15 Blood Pressure 177/83 H 160/73 H O2 Sat by Pulse Oximetry 95 95 - Progress/Reassessment Progress:: Unchanged Progress Note-Subjective: 12/27/19 01:25 I have attempted joint aspiration on the left knee. Due to patient's overall size and minimal joint space I was unable to aspirate any joint fluid for diagnostic testing. 12/27/19 02:[address] Suggs he states is not an absolute necessity to admit this patient as the diagnosis of septic arthritis is not clear but that if medicine was willing to admit her he would be willing to consult. I spoke with Dr. Beard he agrees to observation admit. Isaiah Cardoza DO, FAAFP
[2019-12-26] MEDS ORDERED: MORPHINE SULFATE 4 MG/ML SYRG IV ONE (21:31)
[2019-12-26 21:38] LABS: Hematocrit 37.7 % (37.0-47.0); Hemoglobin 12.2 gm/dL (12.5-16.0); Mean Cell Volume 92.2 fl (78-100); Mean Corpuscular Hemoglobin 29.8 pg (27-31); Mean Corpuscular Hgb Conc 32.4 g/dl (32-36); Mean Platelet Volume 9.1 fl (8-12.5); Neutrophil # 16.4 K/mm3 (1.3-6.0); Neutrophil % 89.7 % (42-75.0); Platelet Count 223 K/mm3 (150-450); Red Blood Count 4.09 M/mm3 (4.2-5.4); White Blood Count 18.3 K/mm3 (4.0-10.5)
[2019-12-26 21:49] LABS: Prothrombin Time (Patient) 15.6 Seconds (9.1-10.7)
[2019-12-26 21:50] LABS: INR 1.6 INR (0.92-1.08); Partial Thrombolplastin Time 30.1 Seconds (24-32)
[2019-12-26 21:51] LABS: Albumin * 3.4 gm/dl (3.4-5.0); Anion Gap 11.4 mmol/L (6.8-13.8); BUN/Creatinine Ratio 25.2 (9.0-21.6); Bilirubin, Total 0.6 mg/dL (0.0-1.1); Ca. Corrected For Albumin 9.1 mg/dL (8.4-10.2); Calcium * 8.9 mg/dL (7.9-10.9); Carbon Dioxide 30.4 mmol/L (24-32.6); Potassium 2.8 mmol/L (3.4-4.6)
[2019-12-26] MEDS ORDERED: HYDROmorphone HCL 1 MG/ML DISP.SYRIN IV ONE (22:13)
[2019-12-26] MEDS ORDERED: MORPHINE SULFATE 2 MG/ML DISP.SYRIN IV ONE (23:47)
[2019-12-27] MEDS ORDERED: LIDOCAINE HCL 50 ML VIAL ONE (01:10)
[2019-12-27] MEDS ORDERED: LIDOCAINE HCL 50 ML VIAL IJ ONE (01:11)
[2019-12-27] MEDS ORDERED: MORPHINE SULFATE 2 MG/ML DISP.SYRIN IV ONE (02:11)
[2019-12-27] MEDS ORDERED: POTASSIUM CHLORIDE 20 MEQ TABLET.SA PO ONE (09:27)
[2019-12-27] MEDS ORDERED: DEXAMETHASONE SODIUM PHOSP/PF 10 MG/ML VIAL IV ONE (10:12)
[2019-12-27 10:25] LABS: Prothrombin Time (Patient) 15.8 Seconds (9.1-10.7)
[2019-12-27 10:26] LABS: INR 1.63 INR (0.92-1.08)
[2019-12-27] MEDS: oxyCODONE HCL/ACETAMINOPHEN 1 TAB TABLET PO PRN ×2 (10:51→20:26)
[2019-12-27] MEDS: METOPROLOL TARTRATE 25 MG TABLET PO SCH ×2 (10:52→20:26)
[2019-12-27] MEDS: CHOLECALCIFEROL 1,000 UNIT CAPSULE PO SCH (10:52)
[2019-12-27] MEDS: LEVOTHYROXINE SODIUM 125 MCG TABLET PO SCH (10:52)
[2019-12-27] MEDS: CITALOPRAM HYDROBROMIDE 20 MG TABLET PO SCH (10:52)
[2019-12-27] MEDS ORDERED: WARFARIN SODIUM 3 MG TABLET PO SCH (17:00)
[2019-12-27] MEDS ORDERED: SIMVASTATIN 20 MG TABLET PO SCH (21:00)
--- NOTE | 2019-12-27 23:00 | HP ---
Chief Complaint - Chief Complaint Date of Service: 12/27/19 Time of Service: 08:30 Chief Complaint: Left knee pain, unable to bear weight History of Present Illness: Maggie is an 89 yo female that presented to the [facility] ER after sudden left knee pain and swelling. She denies recent injury. Since symptoms developed she has been unable to put weight on her left leg and walk. She also reports severe neck and shoulder pain that started at this same. At this time she feels it all hurts about the same. In the ER she had knee xray and venous duplex that showed osteoarthritis and bakers cyst. There was no DVT. She had an attempt at aspiration but no fluid was able to be removed. She denies fever, chills, nausea, or vomiting. She reports Dr. Duron did a steroid injection on it about a year ago. Medical History (Last Reviewed 12/27/19 @ 03:16 by Mariama Marquez RN) H/O mammogram (Chronic) Onset Date: ~02/04/08 Yearly Screening Sciatica (Chronic) Onset Date: ~2004 Left sided Osteoarthritis (Chronic) Onset Date: Unknown Obesity (Chronic) Onset Date: Unknown Myalgia (Chronic) Onset Date: Unknown Knee pain (Chronic) Onset Date: Unknown Left and Right, acute on chronic left Joint prosthesis infection or inflammation (Chronic) Onset Date: ~2013 right knee Hypothyroidism (Chronic) Onset Date: ~07/2008 Hypertension (Chronic) Onset Date: ~1969 Hyperlipidemia (Chronic) Onset Date: ~09/2006 Encounter for Hemoccult screening (Chronic) Onset Date: ~09/07/07 Negative X 3 Diabetes 1.5, managed as type 2 (Chronic) Onset Date: ~01/2008 Depression (Chronic) Onset Date: Unknown H/O bone density study (Chronic) Onset Date: ~11/22/04 Atrial fibrillation (Chronic) Onset Date: ~09/20/13 Osteoarthritis (Chronic) Onset Date: ~03/10/13 Bilateral knees Arthralgia (Chronic) Onset Date: Unknown Anxiety (Chronic) Onset Date: Unknown Anemia (Chronic) Onset Date: ~01/2008 Surgical History: Surgical History (Last Reviewed 12/27/19 @ 03:16 by Mariama Marquez RN) History of total knee arthroplasty (Resolved) Onset Date: ~12/07/13 2014 - Dr. Mckeon - Right 2014 - Dr. De Jesus [facility] right revision after infection. H/O bilateral oophorectomy (Resolved) Onset Date: ~1955 History of cholecystectomy (Resolved) Onset Date: ~1986 Cataract (Resolved) Onset Date: Unknown Right 11/2001 and Left 02/2007 History of bladder surgery (Resolved) Onset Date: Unknown ? adhesions and bladder dropped Hx of hysterectomy Family History: Family History (Last Reviewed 12/27/19 @ 03:16 by Mariama Marquez RN) Father , age 70 Hypertension Myocardial infarction Mother , age 97 Heart disease CHF (congestive heart failure) Broken hip Social History: (Last Reviewed 12/27/19 @ 03:16 by Mariama Marquez RN) Social History: adopted: No alf: No Marital status: / lives independently: Yes household members: none current occupational status: retired Highest education level completed: 11th grade Service: No Tobacco: Smoking Status: Former smoker Alcohol: alcohol intake: never Substance Use: substance use type: does not use Dietary Habits: caffeine: Yes Type: coffee Review Of Systems (GEN) - Review of Systems Generalized/Overall Review: Present: Weakness. Absent: Chills, Fever EENTM: Present: No Symptoms Reported Respiratory: Present: No Symptoms Reported Cardiac: Present: No Symptoms Reported Abdominal: Present: No Symptoms Reported Genitourinary: Present: No Symptoms Reported Musculoskeletal: Present: Joint Pain, Joint Swelling, Neck Pain. Absent: Gout Neurological: Present: No Symptoms Reported Skin: Present: No Symptoms Reported Immunizations: IMMUNIZATION HX Immunizations Up to Date Yes History of Influenza Vaccine More Information Required Hx Pneumococcal Vaccination More Information Required Allergies/Adverse Reactions: Allergies Allergy/AdvReac Type Severity Reaction Status Date / Time iodine Allergy Intermediate Blisters Verified 12/10/19 22:49 ibuprofen AdvReac Intermediate Swelling Verified 12/10/19 22:49 (Other) bupropion HCl AdvReac Mild Other Verified 12/10/19 22:49 [From Wellbutrin] Home Medications: HOME MEDICATIONS metoprolol tartrate 75 mg tablet 75 mg PO BID #180 tab 10/20/19 [Last Taken Unknown] levothyroxine 125 mcg capsule 125 mcg PO DAILY #30 cap 11/25/19 [Last Taken Unknown] cholecalciferol (vitamin D3) 25 mcg (1,000 unit) capsule 1,000 unit PO DAILY #30 cap 11/30/19 [Last Taken Unknown] simvastatin 20 mg tablet 20 mg PO HS #30 tab 11/30/19 [Last Taken Unknown] oxycodone-acetaminophen 5 mg-325 mg tablet See Rx Instructions PO Q8H PRN #42 tab 12/24/19 [Last Taken Unknown] torsemide 20 mg tablet 60 mg PO DAILY #180 tab 12/24/19 [Last Taken Unknown] Citalopram Hydrobromide [Citalopram HBr] 20 mg PO DAILY 12/27/19 [Last Taken Unknown] Potassium Chloride [Klor-Con M10] 10 meq PO DAILY 12/27/19 [Last Taken Unknown] Warfarin Sodium 1.5 mg PO SUMOWETHFR 12/27/19 [Last Taken Unknown] Warfarin Sodium 3 mg PO TUSA 12/27/19 [Last Taken Unknown] Exam - Exam Vital Signs: Vital Signs - Last Taken Temp 36.6 C 12/27/19 19:00 Pulse 76 12/27/19 20:26 Resp 16 12/27/19 19:00 BP 130/56 12/27/19 20:26 Pulse Ox 95 12/27/19 19:00 Constitutional: Present: Alert, Oriented x3, Cooperative ENT Exam: Present: hearing grossly normal Eye Exam: bilateral eye: normal inspection Respiratory: Present: lungs clear, normal breath sounds Cardiovascular/Chest: Present: no murmur, irregularly irregular Abdomen: Present: Normal bowel sounds, soft, nontender, nondistended Extremity: Present: swelling - diffuse left knee swelling, no erythema, no significant warmth Appearance: Present: appropriate appearance, appropriate insight Eye contact: Present: cooperative, good eye contact, normal speech Thoughts: Present: normal thought pattern, no apparent hallucination Diagnostic Studies: Abnormal Lab Results 12/26/19 12/27/19 Range/Units 21:35 10:14 PT 15.8 H (9.1-10.7) Seconds INR (Anticoag Therapy) 1.63 H (0.92-1.08) INR D-Dimer 0.85 H (0.19-0.49) ug/mL Laboratory Results WBC 18.3 K/mm3 (4.0-10.5) H 12/26/19 21:35 RBC 4.09 M/mm3 (4.2-5.4) L 12/26/19 21:35 Hgb 12.2 gm/dL (12.5-16.0) L 12/26/19 21:35 Hct 37.7 % (37.0-47.0) 12/26/19 21:35 MCV 92.2 fl (78-100) 12/26/19 21:35 MCH 29.8 pg (27-31) 12/26/19 21:35 MCHC 32.4 g/dl (32-36) 12/26/19 21:35 RDW 14.0 % (11.5-14.0) 12/26/19 21:35 Plt Count 223 K/mm3 (150-450) 12/26/19 21:35 MPV 9.1 fl (8-12.5) 12/26/19 21:35 Immature Gran % (Auto) 0.50 % (0.001-0.429) H 12/26/19 21:35 Immature Gran # (Auto) 0.10 K/mm3 (0.000-0.0310) H 12/26/19 21:35 Neutrophils % 89.7 % (42-75.0) H 12/26/19 21:35 Lymphocytes % 4.9 % (20-51) L 12/26/19 21:35 Monocytes % 4.4 % (0.0-9) 12/26/19 21:35 Eosinophils % 0.4 % (0.0-3.0) 12/26/19 21:35 Basophils % 0.1 % (0.0-1.0) 12/26/19 21:35 Nucleated RBC % 0.0 k/mm3 (0-1) 12/26/19 21:35 Neutrophils # 16.4 K/mm3 (1.3-6.0) H 12/26/19 21:35 Lymphocytes # 0.90 k/mm3 (1.5-3.5) L 12/26/19 21:35 Monocytes # 0.8 k/mm3 (0.0-1.0) 12/26/19 21:35 Eosinophils # 0.1 k/mm3 (0.0-0.7) 12/26/19 21:35 Absolute Basophils 0.0 k/mm3 (0.0-0.1) 12/26/19 21:35 PT 15.8 Seconds (9.1-10.7) H 12/27/19 10:14 INR (Anticoag Therapy) 1.63 INR (0.92-1.08) H 12/27/19 10:14 PTT (Devin) 30.1 Seconds (24-32) 12/26/19 21:35 D-Dimer 0.85 ug/mL (0.19-0.49) H 12/26/19 21:35 Sodium 136 mmol/L (132-142) 12/26/19 21:35 Plasma Sodium 137 mmol/L (130-142) 12/26/19 21:35 Potassium 2.8 mmol/L (3.4-4.6) L D 12/26/19 21:35 Chloride 97 mmol/L (97-106) 12/26/19 21:35 Carbon Dioxide 30.4 mmol/L (24-32.6) 12/26/19 21:35 Anion Gap 11.4 mmol/L (6.8-13.8) 12/26/19 21:35 BUN 36 mg/dL (3-23) H 12/26/19 21:35 Creatinine 1.43 mg/dL (0.4-1.4) H 12/26/19 21:35 Est GFR (Non-Af Amer) 37 mL/min (60-130) L 12/26/19 21:35 BUN/Creatinine Ratio 25.2 (9.0-21.6) H 12/26/19 21:35 Random Glucose 138 mg/dL (70-110) H 12/26/19 21:35 Calcium 8.9 mg/dL (7.9-10.9) 12/26/19 21:35 Calcium Adj for Albumin 9.1 mg/dL (8.4-10.2) 12/26/19 21:35 Total Bilirubin 0.6 mg/dL (0.0-1.1) 12/26/19 21:35 AST 21 U/L (0-48) 12/26/19 21:35 ALT 15 U/L (19-67) L 12/26/19 21:35 Alkaline Phosphatase 78 U/L (50-170) 12/26/19 21:35 C-Reactive Prot, Quant 1.0 mg/dL (0.0-0.9) H 12/26/19 21:35 Total Protein 7.0 gm/dL (6.2-8.2) 12/26/19 21:35 Albumin 3.4 gm/dl (3.4-5.0) 12/26/19 21:35 Assessment/Plan - Narrative Narrative: Will admit for observation due to severe left knee pain. She has elevated WBC but clinically it does not appear to be a septic joint. I will hold off on antibiotics until an aspirate can be obtained or there is further evidence of infection. At this time she reports diffuse joint pains. Will treat with steroids at this time. Will consult Ortho and PT for evaluation and treatment. She is currently unable to bear weight. She may benefit from intraarticular steroid injection if there is no evidence of infected joint. Low potassium, will replace and monitor. - Assessment/Plan (1) Hypokalemia Problem: Acute (2) Polyarthralgia Problem: Acute (3) Osteoarthritis of left knee Problem: Chronic Qualifiers:
[2019-12-28 06:22] LABS: Hematocrit 32.5 % (37.0-47.0); Hemoglobin 10.5 gm/dL (12.5-16.0); Mean Corpuscular Hemoglobin 29.4 pg (27-31); Mean Corpuscular Hgb Conc 32.3 g/dl (32-36); Mean Platelet Volume 9.2 fl (8-12.5); Neutrophil # 14.2 K/mm3 (1.3-6.0); Neutrophil % 86.6 % (42-75.0); Platelet Count 210 K/mm3 (150-450); Red Blood Count 3.57 M/mm3 (4.2-5.4); Red Cell Distribution Width 13.7 % (11.5-14.0); White Blood Count 16.4 K/mm3 (4.0-10.5)
[2019-12-28 06:35] LABS: Prothrombin Time (Patient) 19.6 Seconds (9.1-10.7)
[2019-12-28 06:41] LABS: Albumin * 2.8 gm/dl (3.4-5.0); Anion Gap 9.4 mmol/L (6.8-13.8); BUN/Creatinine Ratio 23.6 (9.0-21.6); Bilirubin, Total 0.7 mg/dL (0.0-1.1); Ca. Corrected For Albumin 9.8 mg/dL (8.4-10.2); Calcium * 9.2 mg/dL (7.9-10.9); Carbon Dioxide 28.4 mmol/L (24-32.6); Potassium 2.8 mmol/L (3.4-4.6); Total Protein 6.3 gm/dL (6.2-8.2)
[2019-12-28 06:45] LABS: INR 2.03 INR (0.92-1.08)
[2019-12-28] MEDS: LEVOTHYROXINE SODIUM 125 MCG TABLET PO SCH (06:47)
[2019-12-28] MEDS: METOPROLOL TARTRATE 25 MG TABLET PO SCH (08:31)
[2019-12-28] MEDS: CHOLECALCIFEROL 1,000 UNIT CAPSULE PO SCH (08:31)
[2019-12-28] MEDS: CITALOPRAM HYDROBROMIDE 20 MG TABLET PO SCH (08:31)
[2019-12-28] MEDS ORDERED: POTASSIUM CHLORIDE 10 MEQ TABLET.SA PO SCH ×2 (09:00→17:00)
[2019-12-28] MEDS ORDERED: TORSEMIDE 20 MG TABLET PO SCH (09:00)
[2019-12-28] MEDS ORDERED: POTASSIUM CHLORIDE 10 MEQ TABLET.SA PO ONE (09:00)
[2019-12-28 10:02] LABS: Body Fluid Appearance CLOUDY (CLEAR); Body Fluid Color YELLOW (COLORLESS)
--- NOTE | 2019-12-28 10:11 | PN ---
Progess Note - Interim Date: 12/28/19 Time: 10:09 Narrative: 12/28/19 10:09 Orhto has aspirated her left knee joint. Clinically inflammatory over septic . WBC has gone down from 18 to 16 w/o antibiotics. Await results.
[2019-12-28] MEDS: POTASSIUM CHLORIDE IN WATER 100 ML IV SCH ×2 (10:51→15:44)
--- NOTE | 2019-12-28 11:45 | PN ---
Progess Note - Interim Date: 12/28/19 Time: 11:41 Narrative: 12/28/19 11:41 Fluid analysis- yellow , cloudy, WBC 20,156, 92 Nuetrophils, >1000 RBC, no crystals seen. GS no bacteria seen, numerous WBC's. Ortho has made her NPO. Will get BC x 2. Will talk to Ortho if they are bringing her for irrigation and debridement if they are leaning toward septic knee will start IV antibiotics. Addendum: Ortho- Not septic knee. She can eat. .
--- NOTE | 2019-12-28 12:03 | CONS ---
[facility] - General Date of Service: 12/28/19 Narrative: Mrs. Patel is an 89-year-old female who noted significant increased left knee pain and tenderness over the last 48 hours. She came to the emergency department was unable to weight-bear and was evaluated for possible knee pathology. X-rays were unremarkable for any acute pathology other than knee arthrosis. She was admitted for pain control and further evaluation. She denies any penetrating trauma to the knee or any history of left knee infection however she did have a septic total knee arthroplasty on the right which was revised at the [place]. She has a history of cellulitis and soft tissue infection on the left leg but not directly in the knee. Source: patient, RN/MD Exam Limitations: no limitations - History of Present Illness Timing/Duration: changing over time Severity: moderate Modifying Factors - (Worsens): Reports: movement Modifying Factors - (Improves): Reports: immobilization Associated Symptoms: denies symptoms Allergies/Adverse Reactions: Allergies iodine Allergy (Intermediate, Verified 12/10/19 22:49) Blisters ibuprofen Adverse Reaction (Intermediate, Verified 12/10/19 22:49) Swelling (Other) bupropion HCl [From Wellbutrin] Adverse Reaction (Mild, Verified 12/10/19 22:49) Other Didn't feel good Home Medications: Home Medications Medication Instructions Recorded Last Taken metoprolol tartrate 75 mg tablet 75 mg PO BID #180 tab 10/20/19 Unknown levothyroxine 125 mcg capsule 125 mcg PO DAILY #30 cap 11/25/19 Unknown cholecalciferol (vitamin D3) 25 1,000 unit PO DAILY #30 cap 11/30/19 Unknown mcg (1,000 unit) capsule simvastatin 20 mg tablet 20 mg PO HS #30 tab 11/30/19 Unknown oxycodone-acetaminophen 5 mg-325 See Rx Instructions PO Q8H PRN #42 12/24/19 Unknown mg tablet tab torsemide 20 mg tablet 60 mg PO DAILY #180 tab 12/24/19 Unknown Citalopram Hydrobromide 20 mg PO DAILY 12/27/19 Unknown [Citalopram HBr] Potassium Chloride [Klor-Con M10] 10 meq PO DAILY 12/27/19 Unknown Warfarin Sodium 1.5 mg PO SUMOWETHFR 12/27/19 Unknown Warfarin Sodium 3 mg PO TUSA 12/27/19 Unknown Procedures ANESTH INJECT-SPIN CANAL (01/19/09) Arthrocentesis (02/02/14) INJECT STEROID (01/19/09) Injection of therapeutic substance into joint or ligament (01/09/09) Injection or infusion of other therapeutic or prophylactic substance (01/09/09) SPINAL CANAL INJECT NEC (01/19/09) Total knee replacement (12/07/13) Medications - Medications Current Medications: Current Medications Cholecalciferol (Vitamin D) 1,000 unit PO DAILY ULISES Stop: 01/26/20 10:16 Last Admin: 12/28/19 08:31 Dose: 1,000 unit Documented by: Citalopram Hydrobromide (Celexa) 20 mg PO DAILY ULISES Stop: 01/26/20 10:16 Last Admin: 12/28/19 08:31 Dose: 20 mg Documented by: Potassium Chloride/Water (Kcl 10 Meq/100 Ml Piggyback) 100 mls @ 100 mls/hr IV Q1H ULISES Stop: 12/28/19 13:14 Last Admin: 12/28/19 10:51 Dose: 100 mls/hr Documented by: Levothyroxine Sodium (Synthroid) 125 mcg PO DAILY@0700 ULISES Stop: 01/26/20 10:16 Last Admin: 12/28/19 06:47 Dose: 125 mcg Documented by: Metoprolol Tartrate (Lopressor) 75 mg PO BID ULISES Stop: 01/26/20 10:16 Last Admin: 12/28/19 08:31 Dose: 75 mg Documented by: Oxycodone/Acetaminophen (Percocet 5 Mg/325 Mg) 1 tab PO Q8H PRN PRN Reason: pain Stop: 01/26/20 10:11 Last Admin: 12/27/19 20:26 Dose: 1 tab Documented by: Potassium Chloride (Klor-Con 10) 10 meq PO DAILY ULISES Stop: 01/27/20 09:01 Last Admin: 12/28/19 08:32 Dose: 10 meq Documented by: Simvastatin (Zocor) 20 mg PO HS ULISES Stop: 01/26/20 21:01 Last Admin: 12/27/19 20:26 Dose: 20 mg Documented by: Torsemide (Demadex) 60 mg PO DAILY ULISES Stop: 01/27/20 09:01 Last Admin: 12/28/19 08:31 Dose: 60 mg Documented by: Warfarin Sodium (Coumadin) 1.5 mg PO SuMoWeThFr@1700 [facility] Stop: 01/26/20 17:01 Last Admin: 12/27/19 17:09 Dose: 1.5 mg Documented by: Review of Systems - Review of Systems Narrative: Negative set for above Physical Examination - Exam Narrative: Left lower extremity: Palpable dorsalis pedis pulse, old well-healed scar consistent with her prior infection to the left anterior calf, knee is quite tender about the knee. She has pain with any motion. Mild calor without significant localized erythema. Her leg is somewhat large but I do not appreciate a large effusion. No signs of trauma. 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, no acute osseous pathology Lab/Microbiology results last 24 hrs: Abnormal/Pending Laboratory Last 24 HRS 12/28/19 12/28/19 12/28/19 08:00 06:16 06:16 WBC 16.4 H RBC 3.57 L Hgb 10.5 L Hct 32.5 L Immature Gran % (Auto) 0.80 H Immature Gran # (Auto) 0.13 H Neutrophils % 86.6 H Lymphocytes % 6.9 L Neutrophils # 14.2 H Lymphocytes # 1.13 L ESR PT INR (Anticoag Therapy) Potassium 2.8 L BUN 29 H Est GFR (Non-Af Amer) 44 L BUN/Creatinine Ratio 23.6 H Random Glucose 148 H ALT 14 L Albumin 2.8 L Fluid WBC 62266 H Fluid RBC Greater than 1000.0 H 12/28/19 12/28/19 06:16 06:00 WBC RBC Hgb Hct Immature Gran % (Auto) Immature Gran # (Auto) Neutrophils % Lymphocytes % Neutrophils # Lymphocytes # ESR 52 H PT 19.6 H INR (Anticoag Therapy) 2.03 H Potassium BUN Est GFR (Non-Af Amer) BUN/Creatinine Ratio Random Glucose ALT Albumin Fluid WBC Fluid RBC Culture 12/28/19 08:00 Gram Stain - Final Knee - Left - Assessments/Findings (1) Knee pain, left Diagnosis(s): We reviewed the concern for possible underlying infection to the knee. An aspirate was performed at bedside which showed 10 mL of yellow nonpurulent material consistent with inflammation and synovial fluid. No gross blood. She tolerated it well. We will wait for knee aspirate results to come back and if it is not consistent with septic arthrosis the plan would be to work on discharge to home. If there is concern for infection plan will be for arthroscopy and debridement. She can weight-bear as tolerated and move as she tolerates as well. If negative for infection she can be seen in the clinic in the next week. Problem: Acute Qualifiers: Chronicity: acute Qualified Code(s): M25.562 - Pain in left knee
[2019-12-28] MEDS: oxyCODONE HCL/ACETAMINOPHEN 1 TAB TABLET PO PRN (12:54)
--- NOTE | 2019-12-28 15:33 | DS ---
Date of Discharge:: 12/28/19 Hospital Course: Maggie Patel is an 89 yo female with PMH of hypertension, hyperlipidemia, hypothyoidism, Atrial Fibrillation that presented to the [facility] ER on 12/27/2019 after sudden left knee pain and swelling. She denied recent injury. Since symptoms developed she has been unable to put weight on her left leg and walk. She also reports severe neck and shoulder pain that started at this same. At this time she feels it all hurts about the same. In the ER she had knee xray and venous duplex that showed osteoarthritis and bakers cyst. There was no DVT. She had an attempt at aspiration but no fluid was able to be removed. She denied fever, chills, nausea, or vomiting. She reports Dr. Duron did a steroid injection on it about a year ago. Orthopedic was consulted and they did an aspiration . Synovial fluis was not a septic picture and they recommend to weight as tolerated an follow up with them next week. We are not able to give her NSAIDS due to her Coumadin for AFib. She will likely get an injection of her knee next week if pain is bad for OA and Knapp's cyst. Will increase her [place] to q 6 hours from 8 hours. Maggie is homebound due to OA/knapp's and her other multiple medical problems. She will need correction services for management of medications especially pain meds and monitoring of vital signs. She will need PT services to improve her balance, strengthening of her lower extremities and improving her ambulation to increase her daily activities. Procedures Performed: see notes below List Procedures: Knee aspiration Results and Findings: Lab Pending Results 12/26/19 21:35: WBC 18.3 H, RBC 4.09 L, Hgb 12.2 L, Hct 37.7, MCV 92.2, MCH 29.8, MCHC 32.4, RDW 14.0, Plt Count 223, MPV 9.1, Immature Gran % (Auto) 0.50 H, Immature Gran # (Auto) 0.10 H, Neutrophils % 89.7 H, Lymphocytes % 4.9 L, Monocytes % 4.4, Eosinophils % 0.4, Basophils % 0.1, Nucleated RBC % 0.0, Neutrophils # 16.4 H, Lymphocytes # 0.90 L, Monocytes # 0.8, Eosinophils # 0.1, Absolute Basophils 0.0 12/26/19 21:35: PT 15.6 H, INR (Anticoag Therapy) 1.60 H, PTT (Devin) 30.1 12/26/19 21:35: Sodium 136, Plasma Sodium 137, Potassium 2.8 L D, Chloride 97, Carbon Dioxide 30.4, Anion Gap 11.4, BUN 36 H, Creatinine 1.43 H, Est GFR (Non- Af Amer) 37 L, BUN/Creatinine Ratio 25.2 H, Random Glucose 138 H, Calcium 8.9, Calcium Adj for Albumin 9.1, Total Bilirubin 0.6, AST 21, ALT 15 L, Alkaline Phosphatase 78, C-Reactive Prot, Quant 1.0 H, Total Protein 7.0, Albumin 3.4 12/26/19 21:35: D-Dimer 0.85 H 12/27/19 10:14: PT 15.8 H, INR (Anticoag Therapy) 1.63 H 12/28/19 06:00: ESR 52 H 12/28/19 06:16: PT 19.6 H, INR (Anticoag Therapy) 2.03 H 12/28/19 06:16: WBC 16.4 H, RBC 3.57 L, Hgb 10.5 L, Hct 32.5 L, MCV 91.0, MCH 29.4, MCHC 32.3, RDW 13.7, Plt Count 210, MPV 9.2, Immature Gran % (Auto) 0.80 H, Immature Gran # (Auto) 0.13 H, Neutrophils % 86.6 H, Lymphocytes % 6.9 L, Monocytes % 5.6, Eosinophils % 0.0, Basophils % 0.1, Nucleated RBC % 0.0, Neutrophils # 14.2 H, Lymphocytes # 1.13 L, Monocytes # 0.9, Eosinophils # 0.0, Absolute Basophils 0.0 12/28/19 06:16: Sodium 136, Plasma Sodium 137, Potassium 2.8 L, Chloride 101, Carbon Dioxide 28.4, Anion Gap 9.4, BUN 29 H, Creatinine 1.23, Est GFR (Non-Af Amer) 44 L, BUN/Creatinine Ratio 23.6 H, Random Glucose 148 H, Calcium 9.2, Calcium Adj for Albumin 9.8, Total Bilirubin 0.7, AST 18, ALT 14 L, Alkaline Phosphatase 62, Total Protein 6.3, Albumin 2.8 L 12/28/19 08:00: Fluid Color Yellow, Fluid Appearance Cloudy, Fluid WBC 15035 H, Fluid RBC Greater than 1000.0 H, Fluid Neutrophils 92, Fluid Lymphocytes 5, Flui d Monocytes 3 12/28/19 08:00: Synovial Crystals No crystals seen Discharge Location: Home Disposition: Home Health Service Home Health Agency: [facility] Condition: Good Face to Face Encounter completed per [facility] Guidelines: Yes Discharge Activity: Activity as tolerated Discharge Diet: Low salt Referrals: Vladimir Oliveira MD [Primary Care Provider] - Additional Patient Instructions (free text): [facility] new. Please call report and fax orders upon discharge. Follow up with ortho next week. Follow up with PCP 1 week. Prescriptions (Any new or edited meds): oxyCODONE HCL/ACETAMINOPHEN [Oxycodone-Acetaminophen 5-325] See Rx Instructions PO Q6H PRN #42 tab PRN Reason: pain Transmission Status: Sent to [facility] Complete Home Medications List: Complete Home Medication List: metoprolol tartrate 75 mg tablet 75 mg PO BID #180 tab 10/20/19 levothyroxine 125 mcg capsule 125 mcg PO DAILY #30 cap 11/25/19 cholecalciferol (vitamin D3) 25 mcg (1,000 unit) capsule 1,000 unit PO DAILY #30 cap 11/30/19 simvastatin 20 mg tablet 20 mg PO HS #30 tab 11/30/19 torsemide 20 mg tablet 60 mg PO DAILY #180 tab 12/24/19 Citalopram Hydrobromide [Citalopram HBr] 20 mg PO DAILY 12/27/19 Potassium Chloride [Klor-Con M10] 10 meq PO DAILY 12/27/19 Warfarin Sodium 1.5 mg PO SUMOWETHFR 12/27/19 Warfarin Sodium 3 mg PO TUSA 12/27/19 oxyCODONE HCL/ACETAMINOPHEN [Oxycodone-Acetaminophen 5-325] See Rx Instructions PO Q6H PRN #42 tab 12/28/19
[2019-12-28] MEDS ORDERED: WARFARIN SODIUM 3 MG TABLET PO SCH (17:00)
[2019-12-28] MEDS ORDERED: POTASSIUM CHLORIDE 20 MEQ TABLET.SA PO SCH (17:00)
[2019-12-28 18:18] VITALS: BP 146/71
== END 2019-12-28 18:00 | disposition home health service (06) ==
LOC: ER 21:09 → MS 21:09
PROVIDERS: ADMIT Family Medicine; ATTEND Internal Medicine
DX: E78.5 Hyperlipidemia, unspecified; M71.22 Synovial cyst of popliteal space [Baker], left knee; E03.9 Hypothyroidism, unspecified; M25.562 Pain in left knee; I10 Essential (primary) hypertension; E87.6 Hypokalemia; E11.9 Type 2 diabetes mellitus without complications; I48.91 Unspecified atrial fibrillation; Z79.01 Long term (current) use of anticoagulants; M25.462 Effusion, left knee; M25.512 Pain in left shoulder